=== PATIENT | female | born 1980 | race African-American/Black ===

== ENCOUNTER 2020-03-27 09:36 | Outpatient (REF) | payer MEDICARE, MEDICAID, SELFPAY ==
[2020-03-28 09:38] LABS: BV Int Neg Control Negative (Negative); BV Int Pos Control Positive (Positive)
[2020-03-28 12:57] LABS: C. trachomatis RNA TMA NOT DETECTED (NOT DETECTED); N. gonorrhoeae RNA TMA NOT DETECTED (NOT DETECTED)
== END 2020-03-27 09:37 | disposition home or self-care (01) ==
LOC: HO.LAB 09:36
PROVIDERS: Visit Provider Advanced Practice Midwife
DX: Z01.419 Encounter for gynecological examination (general) (routine) without abnormal findings (principal); I10 Essential (primary) hypertension; R10.2 Pelvic and perineal pain; Z20.2 Contact with and (suspected) exposure to infections with a predominantly sexual mode of transmission; Z12.31 Encounter for screening mammogram for malignant neoplasm of breast
CPT/HCPCS: 36415; 87480; 87491; 87510; 87591; 87660

== ENCOUNTER 2020-04-05 10:41 | Outpatient (REF) | payer MEDICARE, MEDICAID, SELFPAY ==
--- NOTE | 2020-04-05 10:48 | US_ITS ---
EXAMINATION: ULTRASOUND PELVIS CLINICAL INFORMATION: Pelvic and perineal pain. COMPARISON: None TECHNIQUE: Transabdominal and transvaginal ultrasound of the pelvis is performed. FINDINGS: On transabdominal ultrasound the uterus is anteverted measuring 9.5 cm in length, 4.3 cm in AP and 5.5 cm in transverse dimension. Endometrial thickness is 0.61 cm. There is a hypoechoic lesion in the right posterior uterus measuring 2.0 x 2.1 x 2.5 cm. There are multiple anechoic cervical nabothian cysts. The right ovary measures 4.72 x 3.05 x 3.06 mL and volume 27.36 mL. There is anechoic complex cyst measuring 3.5 x 3.0 x 3.4 cm. The left ovary measures 4.90 x 1.94 x 2.55 cm and volume 12.69 mL. There is an calcified wall cyst measuring 0.61 x 0.66 x 0.71 cm. There is free fluid in the cul-de-sac. US/US transvaginal IMPRESSION: Small posterior fundal uterine fibroid. The uterus is otherwise unremarkable. Complex cyst right ovary. A complex calcified left ovarian cyst. Nabothian cysts in cervix.
--- NOTE | 2020-04-05 10:48 | US_ITS ---
EXAMINATION: ULTRASOUND PELVIS CLINICAL INFORMATION: Pelvic and perineal pain. COMPARISON: None TECHNIQUE: Transabdominal and transvaginal ultrasound of the pelvis is performed. FINDINGS: On transabdominal ultrasound the uterus is anteverted measuring 9.5 cm in length, 4.3 cm in AP and 5.5 cm in transverse dimension. Endometrial thickness is 0.61 cm. There is a hypoechoic lesion in the right posterior uterus measuring 2.0 x 2.1 x 2.5 cm. There are multiple anechoic cervical nabothian cysts. The right ovary measures 4.72 x 3.05 x 3.06 mL and volume 27.36 mL. There is anechoic complex cyst measuring 3.5 x 3.0 x 3.4 cm. The left ovary measures 4.90 x 1.94 x 2.55 cm and volume 12.69 mL. There is an calcified wall cyst measuring 0.61 x 0.66 x 0.71 cm. There is free fluid in the cul-de-sac. US/US pelvic complete IMPRESSION: Small posterior fundal uterine fibroid. The uterus is otherwise unremarkable. Complex cyst right ovary. A complex calcified left ovarian cyst. Nabothian cysts in cervix.
[2020-04-05 13:12] LABS: Syphilis Screen Nonreactive (Nonreactive)
[2020-04-06 04:50] LABS: HBc Num1 0.05 S/CO (0.00-0.79); Hepatitis B Core Antibody Nonreactive (Nonreactive); ~HepC Num1 0.09 S/CO (0.00-0.79); ~Hepatitis C Antibody Nonreactive (Nonreactive)
[2020-04-06 04:51] LABS: HIV AB/AG Nonreactive (Nonreactive); HIV Num 1 0.07 S/CO (0.00-0.99)
[2020-04-06 18:52] LABS: C. trachomatis RNA TMA NOT DETECTED (NOT DETECTED); N. gonorrhoeae RNA TMA NOT DETECTED (NOT DETECTED)
== END 2020-04-05 10:42 | disposition home or self-care (01) ==
LOC: HO.US 10:41
PROVIDERS: Visit Provider Advanced Practice Midwife
DX: R10.2 Pelvic and perineal pain (principal); Z20.2 Contact with and (suspected) exposure to infections with a predominantly sexual mode of transmission
CPT/HCPCS: 36415; 76830; 76856; 86704; 86780; 86803; 87389; 87491; 87591

== ENCOUNTER → 2020-04-17 12:06 | Outpatient (BNVA) | payer MEDICARE, MEDICAID, SELFPAY | PROVIDERS: Visit Provider Advanced Practice Midwife | DX: R10.2 Pelvic and perineal pain (principal); K59.00 Constipation, unspecified; N83.299 Other ovarian cyst, unspecified side; Z71.2 Person consulting for explanation of examination or test findings | CPT/HCPCS: Q3014 ==

== ENCOUNTER → 2020-05-01 09:05 | Outpatient (BNVA) | payer MEDICARE, MEDICAID, SELFPAY | PROVIDERS: Visit Provider Obstetrics & Gynecology | DX: N93.9 Abnormal uterine and vaginal bleeding, unspecified (principal); R35.0 Frequency of micturition; R10.2 Pelvic and perineal pain | CPT/HCPCS: 81003; 99212 ==

== ENCOUNTER 2020-05-30 10:49 | Outpatient (REF) | payer MEDICARE, MEDICAID, SELFPAY ==
--- NOTE | ~2020-05-30 | US_ITS ---
EXAMINATION: ULTRASOUND PELVIS CLINICAL INFORMATION: Pelvic pain. COMPARISON: Ultrasound pelvis 04/05/2020. TECHNIQUE: Transabdominal and transvaginal ultrasound of the pelvis is performed. FINDINGS: The uterus is anteverted and anteflexed measuring 8.4 cm in length, 4.2 cm in AP and 5.5 cm in transverse dimension. There are 2 hypoechoic lesions. Lesion in the posterior upper body of uterus measures 2.1 x 2.1 x 2.2 cm. Previously it measured 2.0 x 2.1 x 2.5 cm. Second lesion along the left midbody of the uterus measures 1.3 x 0.8 x 1.5 cm. It is new. There are small anechoic nabothian cysts seen in the cervix. Endometrial thickness is 0.7 cm. The right ovary measures 3.5 x 1.7 x 2.3 cm and volume 7.2 mL. There is a complex cyst measuring 2.8 x 1.6 x 2.0 cm. Previously it measured 3.5 x 3.0 x 3.4 cm. The left ovary measures 2.9 x 2.1 x 2.3 cm and volume 7.3 mL. There is an anechoic cyst with calcified abbott measuring 0.9 x 0.7 x 0.7 cm. Previously it measured 0.6 x 0.7 x 0.7 cm. US/US pelvic complete IMPRESSION: At least 2 uterine fibroids. The larger fibroid is unchanged to previous study. Complex bilateral ovarian cysts, stable. There is no free fluid in cul-de-sac. There are several nabothian cysts in the cervix.
--- NOTE | ~2020-05-30 | US_ITS ---
EXAMINATION: ULTRASOUND PELVIS CLINICAL INFORMATION: Pelvic pain. COMPARISON: Ultrasound pelvis 04/05/2020. TECHNIQUE: Transabdominal and transvaginal ultrasound of the pelvis is performed. FINDINGS: The uterus is anteverted and anteflexed measuring 8.4 cm in length, 4.2 cm in AP and 5.5 cm in transverse dimension. There are 2 hypoechoic lesions. Lesion in the posterior upper body of uterus measures 2.1 x 2.1 x 2.2 cm. Previously it measured 2.0 x 2.1 x 2.5 cm. Second lesion along the left midbody of the uterus measures 1.3 x 0.8 x 1.5 cm. It is new. There are small anechoic nabothian cysts seen in the cervix. Endometrial thickness is 0.7 cm. The right ovary measures 3.5 x 1.7 x 2.3 cm and volume 7.2 mL. There is a complex cyst measuring 2.8 x 1.6 x 2.0 cm. Previously it measured 3.5 x 3.0 x 3.4 cm. The left ovary measures 2.9 x 2.1 x 2.3 cm and volume 7.3 mL. There is an anechoic cyst with calcified abbott measuring 0.9 x 0.7 x 0.7 cm. Previously it measured 0.6 x 0.7 x 0.7 cm. US/US transvaginal IMPRESSION: At least 2 uterine fibroids. The larger fibroid is unchanged to previous study. Complex bilateral ovarian cysts, stable. There is no free fluid in cul-de-sac. There are several nabothian cysts in the cervix.
== END 2020-05-30 10:50 | disposition home or self-care (01) ==
LOC: HO.US 10:49
PROVIDERS: Visit Provider Advanced Practice Midwife
DX: R10.2 Pelvic and perineal pain (principal)
CPT/HCPCS: 76830; 76856

== ENCOUNTER → 2020-06-01 11:26 | Outpatient (BNVA) | payer MEDICARE, MEDICAID, SELFPAY | PROVIDERS: Visit Provider Advanced Practice Midwife | DX: Z13.89 Encounter for screening for other disorder (principal) | CPT/HCPCS: Q3014 ==

== ENCOUNTER 2020-06-02 10:07 | Outpatient (REF) | payer MEDICARE, MEDICAID, SELFPAY ==
[2020-06-03 13:16] LABS: CT PCR NOT DETECTED (Not Detect.); NG PCR NOT DETECTED (Not Detect.)
[2020-06-05 22:26] LABS: CA-125 11 U/mL (<35)
== END 2020-06-02 10:08 | disposition home or self-care (01) ==
LOC: HO.LAB 10:07
PROVIDERS: Visit Provider Advanced Practice Midwife
DX: R10.2 Pelvic and perineal pain (principal); N83.299 Other ovarian cyst, unspecified side; Z11.3 Encounter for screening for infections with a predominantly sexual mode of transmission; Z11.8 Encounter for screening for other infectious and parasitic diseases
CPT/HCPCS: 86304; 87491; 87591

== ENCOUNTER 2020-06-07 14:09 | Outpatient (REF) | payer MEDICARE, MEDICAID, SELFPAY | END 2020-06-07 14:10 | disposition home or self-care (01) | LOC: HO.LAB 14:09 | PROVIDERS: Visit Provider Obstetrics & Gynecology | DX: N93.9 Abnormal uterine and vaginal bleeding, unspecified (principal) | CPT/HCPCS: 58100; 88305 ==

== ENCOUNTER → 2020-06-16 10:51 | Outpatient (BNVA) | payer MEDICARE, MEDICAID, SELFPAY | PROVIDERS: Visit Provider Obstetrics & Gynecology | DX: Z13.89 Encounter for screening for other disorder (principal) | CPT/HCPCS: Q3014 ==

== ENCOUNTER 2021-02-08 08:15 | Outpatient (REF) | payer MEDICARE, MEDICAID, SELFPAY ==
--- NOTE | ~2021-02-08 | MM_ITS ---
EXAMINATION: MM SCREENING DIGITAL BREAST TOMOSYNTHESIS, BILATERAL CLINICAL INFORMATION: Screening. Asymptomatic. Age 40. No prior breast imaging. Family history breast cancer. The lifetime risk of breast cancer based on the Tyrer-Cuzick Model is 7%. COMPARISON: None (current study represents initial baseline exam). TECHNIQUE: Digital breast tomosynthesis is performed in both the craniocaudal and mediolateral oblique views along with computer-aided detection (CAD). Synthesized 2D images are generated from the tomosynthesis. Additional left CC view is provided. FINDINGS: There are scattered areas of fibroglandular density (ACR BI-RADS breast composition Category b). There are no significant masses, abnormal calcifications, or other abnormalities. Skin contours are smooth. MM/MM tomosynthesis screening BI IMPRESSION: No mammographic evidence of malignancy. ASSESSMENT: BI-RADS 1: Negative RECOMMENDATION: Routine annual mammography screening. This patient's information was entered into a reminder system with a target due date for their next mammogram.
== END 2021-02-08 08:16 | disposition home or self-care (01) ==
LOC: HO.MAMMO 08:15
PROVIDERS: Visit Provider Advanced Practice Midwife
DX: Z12.31 Encounter for screening mammogram for malignant neoplasm of breast (principal)
CPT/HCPCS: 77063; 77067

== ENCOUNTER 2021-03-13 02:04 | Emergency (ER) | payer MEDICARE, MEDICAID, SELFPAY ==
--- NOTE | ~2021-03-13 | XR_ITS ---
EXAMINATION: XR HAND, RIGHT CLINICAL INFORMATION: Possible glass in hand COMPARISON: None TECHNIQUE: Single PA view of the right hand. FINDINGS: No fracture or dislocation. Appropriate alignment. Joint spaces are maintained. Corticated ossific density at the tip of the ulnar styloid may be from prior trauma. There is no radiopaque foreign body identified. XR/XR hand RT 2V IMPRESSION: No radiopaque foreign body identified.
[2021-03-13 02:39] VITALS: BP 130/96; PULSE 120; RESP 20; TEMP 36.7; O2SAT 99; BMI 32.1
[2021-03-13 04:00] VITALS: BP 130/96; PULSE 120; RESP 20; TEMP 36.7; O2SAT 99
[2021-03-13] MEDS: Lidocaine HCl 2 % MPF 5 ML VIAL INFILTRATI (05:10)
--- NOTE | 2021-03-13 05:40 | ED.WOUNDLAC ---
HPI - Wound/Laceration General Chief Complaint: Wound/Laceration Stated Complaint: R hand laceration Time Seen by Provider: 03/13/21 04:56 Source: patient Mode of arrival: ambulatory Limitations: no limitations History of Present Illness HPI narrative: Patient got a superficial laceration on the dorsum of the right hand from broken glass from hot tea no other injuries Related Data Previous Rx's Medication Instructions Recorded metronidazole 500 mg tablet 500 mg PO BID 7 Days #14 tab 03/29/20 (Flagyl) norethindrone (contraceptive) 0.35 0.35 mg PO DAILY #84 tab 05/01/20 mg tablet Allergies Allergy/AdvReac Type Severity Reaction Status Date / Time No Known Allergies Allergy Verified 06/16/20 10:53 [No Known Allergies*] Review of Systems Review of Systems: Yes all other systems are reviewed and are negative PMFSH Past Medical History Attestation statement: The following information was validated with the patient. Medical History Fibroids Hypertension Obesity (BMI 35.0-39.9 without comorbidity) Family History Family History Maternal Grandmother Cancer Social History Social History Alcohol intake: unknown Patient Tobacco Use Status: Tobacco use Unknown Use of substances other than those prescribed or required for medical reasons: Unknown Substance Use Type: Marijuana Advance Directives: No Advance Directives Information Provided: No Patient : No Sexual orientation: Straight/Heterosexual Physical Exam Vital Signs: Vital Signs: Last Vital Signs Temp 98.1 F 03/13/21 04:00 Pulse 120 H 03/13/21 04:00 Resp 20 03/13/21 04:00 BP 130/96 H 03/13/21 04:00 Pulse Ox 99 03/13/21 04:00 BMI result Body Mass Index 32.1 Extrem: Hand/finger images: 1. Superficial 2 cm laceration with active bleeding and hematoma Tendons are intact neurovascular intact MDM - Wound/Laceration MDM Narrative Medical decision making narrative: X-ray negative for foreign body , laceration sutured with sutures and Shad wrap was applied Procedures Laceration Laceration 1: Site: upper extremity Side (If applicable): right Size (cm): 2 Description: stellate Depth: simple, single layer Local Anesthetic: lidocaine 2% Amount of anesthesia used (mL): 1 Pre-repair: wound explored and deep structures intact Skin layer closed with: nylon Size (cm): 5-0 Number of sutures: 2 Technique: simple, interrupted Discharge Plan Discharge Clinical Impression: Laceration Patient Disposition: Home, Self-Care Instructions: Laceration (ED) Additional Instructions: Local care as advised Suture removal in 7-10 days Prescriptions: No Action metronidazole [Flagyl] 500 mg tablet 500 mg PO BID 7 Days Qty: 14 RF: 0 norethindrone (contraceptive) 0.35 mg tablet 0.35 mg PO DAILY Qty: 84 RF: 4 Interventions: ED Discharge Assessment Last Done: 03/13/21 05:55 Discharge Date/Time: 03/13/21 05:59
== END 2021-03-13 05:59 | disposition home or self-care (01) ==
PROVIDERS: Emergency Provider Internal Medicine
DX: S61.411A Laceration without foreign body of right hand, initial encounter (principal); I10 Essential (primary) hypertension; W25.XXXA Contact with sharp glass, initial encounter; Y93.9 Activity, unspecified; Y92.9 Unspecified place or not applicable; Y99.9 Unspecified external cause status
CPT/HCPCS: 12001; 73120; 99284

== ENCOUNTER 2021-04-30 16:06 | Emergency (ER) | payer OTHER, SELFPAY ==
[2021-04-30] VITALS (8 sets, daily range): BP systolic 170–208; BP diastolic 100–121; PULSE 68–107; RESP 14–22; TEMP 36.3–37.1; O2SAT 98–99; BMI 32.1
--- NOTE | 2021-04-30 16:28 | ECG_ITS ---
Test Reason : abdominal pain Blood Pressure : / mmHG Vent. Rate : 102 BPM Atrial Rate : 102 BPM P-R Int : 150 ms QRS Dur : 076 ms QT Int : 358 ms P-R-T Axes : 066 182 032 degrees QTc Int : 466 ms Sinus tachycardia Right superior axis deviation Pulmonary disease pattern Abnormal ECG No previous ECGs available Referred By: Generic ED Physician Electronically Signed By:Surinder Silva
[2021-04-30 17:27] LABS: Imm Gran Abs Auto 0.02 X10*3/uL (0.00-0.03); Imm Gran Pct Auto 0.2 % (0.0-0.4); Mean Platelet Volume 11.9 fL (9.4-12.3); Red Cell Distribution Width 14.6 % (11.0-16.0); WBC ABN SCTR 1
[2021-04-30 17:36] LABS: Basophils Absolute Auto 0.1 X10*3/uL (0.0-0.2); Basophils Percent Auto 0.6 % (0-2); Eosinophils Absolute Auto 0.2 X10*3/uL (0.0-0.4); Eosinophils Percent Auto 1.7 % (0-4); Hematocrit 40.4 % (37.0-47.0); Hemoglobin 12.8 g/dl (12.0-16.0); Lymphocytes Absolute Auto 3.9 X10*3/uL (1.2-4.9); Lymphocytes Percent Auto 41.9 % (20-40); Mean Corpuscular HGB Conc 31.7 g/dl (31.0-35.0); Mean Corpuscular Hemoglobin 27.7 pg (27.0-33.0); Mean Corpuscular Volume 87.4 fL (80.0-98.0); Monocytes Absolute Auto 1.1 X10*3/uL (0.1-1.2); Monocytes Percent Auto 11.2 % (2-11); Neutrophils Absolute Auto 4.2 x10*3/uL (2.0-8.3); Neutrophils Percent Auto 44.4 % (45-73); Platelet Count 297 X10*3/uL (160-400); Red Blood Count 4.62 X10*6/uL (4.20-5.50)
[2021-04-30 17:40] LABS: WBC ABN SCTR FOR CBC 1
[2021-04-30 17:41] LABS: MANUAL DIFF FLAG NO; White Blood Count 9.4 X10*3/uL (4.8-10.8)
[2021-04-30 17:53] LABS: Anion Gap 13 (12-20); Blood Urea Nitrogen 12 mg/dL (9-16); Calcium 9.7 mg/dL (8.4-10.2); Carbon Dioxide 26 mmol/L (22-29); Chloride 107 mmol/L (96-108); Creatinine Clr Calc Pharmacy 65.6; Estimated Glomerular Filt Rate 57; Glucose Random 90 mg/dL (60-115); Potassium 4.9 mmol/L (3.3-5.1); Sodium 141 mmol/L (135-145)
[2021-04-30 17:56] LABS: Troponin-I High Sensitivity 7.9 ng/L (<3.5-17.0)
--- NOTE | 2021-04-30 20:30 | ED_ITS ---
HPI - Abdominal Pain General Chief Complaint: Abdominal Pain Stated Complaint: severe stomach pains Time Seen by Provider: 04/30/21 20:30 Source: patient Mode of arrival: ambulatory Limitations: no limitations History of Present Illness HPI narrative: Patient history of fibroids and hypertension not taking her medications for blood pressure comes here for chronic abdominal pain for more than 1 month with slight nausea and vomiting blood pressure on arrival was 188/101 patient has not taken her blood pressure medication for more than 6 months has could not reach her PCP no diarrhea no fever no chills Related Data Previous Rx's Medication Instructions Recorded lisinopril 20 1 tab PO DAILY #30 tab 05/01/21 mg-hydrochlorothiazide 25 mg tablet pantoprazole 40 mg tablet,delayed 40 mg PO DAILY #30 tab 05/01/21 release (Protonix) sucralfate 1 gram tablet 1 g PO TID #90 tab 05/01/21 Allergies Allergy/AdvReac Type Severity Reaction Status Date / Time No Known Allergies Allergy Verified 04/30/21 16:19 [No Known Allergies*] Review of Systems Review of Systems Yes all other systems are reviewed and are negative Physical Exam Vital Signs: Vital Signs: Last Vital Signs Temp 98.5 F 04/30/21 21:42 Pulse 74 05/01/21 01:11 Resp 18 05/01/21 01:11 BP 153/87 H 05/01/21 01:11 Pulse Ox 99 05/01/21 01:11 BMI result Body Mass Index 32.1 Appearance: Alert. Oriented X3. No acute distress. Eyes: PERRLA, No Nystagmus ENT: Pharynx normal. Oral Mucosa moist Neck: Normal inspection. Neck supple. CVS: Normal heart rate and rhythm. Pulses normal. Respiratory: No respiratory distress. Equal air entry bilateral, no wheezing/rales/rhonchi Abdomen: Soft , diffuse abdominal tenderness in epigastric area and lower quadrants no rebound tenderness or guarding Bowel sounds are present, no mass p alpable, no CVA tenderness Skin: Skin warm and dry. Normal skin color. Normal skin turgor. Extremities: No lower extremity edema. No calf tenderness Neuro: Oriented X 3. No motor deficit. No sensory deficit.No cerebellar signs , cranial nerves II-XII intact MDM - Abdominal Pain MDM Narrative Medical decision making narrative: Is stable labs with chronic abdominal pain noticed to have high blood pressure requiring 2 doses. Will prescribe patient lisinopril and hydrochlorothiazide Lab Data Attestation: I reviewed the patient's lab results. Result diagrams: 04/30/21 17:20 04/30/21 17:20 Labs: Lab Results 04/30/21 04/30/21 04/30/21 Range/Units 17:20 17:20 17:20 WBC 9.4 (4.8-10.8) X10*3/uL RBC 4.62 (4.20-5.50) X10*6/uL Hgb 12.8 (12.0-16.0) g/dl Hct 40.4 (37.0-47.0) % MCV 87.4 (80.0-98.0) fL MCH 27.7 (27.0-33.0) pg MCHC 31.7 (31.0-35.0) g/dl RDW 14.6 (11.0-16.0) % Plt Count 297 (160-400) X10*3/uL MPV 11.9 (9.4-12.3) fL Immature Gran % (Auto) 0.2 (0.0-0.4) % Neut % (Auto) 44.4 L (45-73) % Lymph % (Auto) 41.9 H (20-40) % [place]ett % (Auto) 11.2 H (2-11) % Eos % (Auto) 1.7 (0-4) % Baso % (Auto) 0.6 (0-2) % Lymph # (Auto) 3.9 (1.2-4.9) X10*3/uL [place] # (Auto) 1.1 (0.1-1.2) X10*3/uL Eos # (Auto) 0.2 (0.0-0.4) X10*3/uL Baso # (Auto) 0.1 (0.0-0.2) X10*3/uL Abs Immat Gran (auto) 0.02 (0.00-0.03) X10*3/uL Absolute Neuts (auto) 4.2 (2.0-8.3) x10*3/uL Absolute Nucleated RBC 0.000 (0.0-0.012) X10*3/uL Nucleated RBC % (auto) 0.0 (0.0-0.2) /100WBC Sodium 141 (135-145) mmol/L Potassium 4.9 (3.3-5.1) mmol/L Chloride 107 (96-108) mmol/L Carbon Dioxide 26 (22-29) mmol/L Anion Gap 13 (12-20) BUN 12 (9-16) mg/dL Creatinine 1.06 (0.5-1.4) mg/dL Estim Creat Clear Calc 65.6 Estimated GFR 57 Random Glucose 90 (60-115) mg/dL Calcium 9.7 (8.4-10.2) mg/dL Total Bilirubin 0.4 (0.0-1.0) mg/dL Direct Bilirubin < 0.2 (0.0-0.5) mg/dL AST 15 (5-31) U/L ALT 14 (0-31) U/L Alkaline Phosphatase 65 (39-117) U/L Troponin I High Sens 7.9 (<3.5-17.0) ng/L Total Protein 7.8 (6.5-8.0) g/dL Albumin 4.4 (3.5-5.0) g/dL Lipase 24 (8-78) U/L Urine Color Urine Appearance Urine pH (5.0-8.0) Ur Specific [place] (1.005-1.025) Urine Protein (NEG-TRACE) MG/DL Urine Glucose (UA) (NEG) MG/DL Urine Ketones (NEG) MG/DL Urine Blood (NEG) Urine Nitrite (NEG) Ur Leukocyte Esterase (NEG) 04/30/21 Range/Units 22:06 WBC (4.8-10.8) X10*3/uL RBC (4.20-5.50) X10*6/uL Hgb (12.0-16.0) g/dl Hct (37.0-47.0) % MCV (80.0-98.0) fL MCH (27.0-33.0) pg MCHC (31.0-35.0) g/dl RDW (11.0-16.0) % Plt Count (160-400) X10*3/uL MPV (9.4-12.3) fL Immature Gran % (Auto) (0.0-0.4) % Neut % (Auto) (45-73) % Lymph % (Auto) (20-40) % [place] % (Auto) (2-11) % Eos % (Auto) (0-4) % Baso % (Auto) (0-2) % Lymph # (Auto) (1.2-4.9) X10*3/uL [place] # (Auto) (0.1-1.2) X10*3/uL Eos # (Auto) (0.0-0.4) X10*3/uL Baso # (Auto) (0.0-0.2) X10*3/uL Abs Immat Gran (auto) (0.00-0.03) X10*3/uL Absolute Neuts (auto) (2.0-8.3) x10*3/uL Absolute Nucleated RBC (0.0-0.012) X10*3/uL Nucleated RBC % (auto) (0.0-0.2) /100WBC Sodium (135-145) mmol/L Potassium (3.3-5.1) mmol/L Chloride (96-108) mmol/L Carbon Dioxide (22-29) mmol/L Anion Gap (12-20) BUN (9-16) mg/dL Creatinine (0.5-1.4) mg/dL Estim Creat Clear Calc Estimated GFR Random Glucose (60-115) mg/dL Calcium (8.4-10.2) mg/dL Total Bilirubin (0.0-1.0) mg/dL Direct Bilirubin (0.0-0.5) mg/dL AST (5-31) U/L ALT (0-31) U/L Alkaline Phosphatase (39-117) U/L Troponin I High Sens (<3.5-17.0) ng/L Total Protein (6.5-8.0) g/dL Albumin (3.5-5.0) g/dL Lipase (8-78) U/L Urine Color YELLOW Urine Appearance CLEAR Urine pH 6.0 (5.0-8.0) Ur Specific [place] 1.020 (1.005-1.025) Urine Protein NEG (NEG-TRACE) MG/DL Urine Glucose (UA) NEG (NEG) MG/DL Urine Ketones NEG (NEG) MG/DL Urine Blood NEG (NEG) Urine Nitrite NEG (NEG) Ur Leukocyte Esterase NEG (NEG) Discharge Plan Discharge Clinical Impression: Hypertension, Abdominal pain Patient Disposition: Home, Self-Care Instructions: Abdominal Pain (ED), Hypertension (ED) Additional Instructions: Take blood pressure medication daily as prescribed Check blood pressure should be less than 140/90 Follow with PCP Take medication for GERD as prescribed Prescriptions: New lisinopril-hydrochlorothiazide 20-25 mg tablet 1 tab PO DAILY Qty: 30 3RF pantoprazole [Protonix] 40 mg tablet,delayed release (DR/EC) 40 mg PO DAILY Qty: 30 0RF sucralfate 1 gram tablet 1 g PO TID Qty: 90 0RF PMFSH Past Medical History Medical History Fibroids Hypertension Obesity (BMI 35.0-39.9 without comorbidity) Family History Family History Maternal Grandmother Cancer Social History Social History Alcohol intake: unknown Patient Tobacco Use Status: Tobacco use Unknown Substance Use Type: Marijuana Advance Directives: No Advance Directives Information Provided: Yes Patient : No Sexual orientation: Straight/Heterosexual
[2021-04-30 21:09] LABS: Alanine Aminotransferase 14 U/L (0-31); Albumin Level 4.4 g/dL (3.5-5.0); Alkaline Phosphatase 65 U/L (39-117); Aspartate Amino Transferase 15 U/L (5-31); Bilirubin Direct < 0.2 mg/dL (0.0-0.5); Bilirubin Total 0.4 mg/dL (0.0-1.0); Lipase 24 U/L (8-78); Total Protein 7.8 g/dL (6.5-8.0)
[2021-04-30] MEDS: Morphine Sulfate 4 MG/ML CARTRIDGE IVPUSH (21:59)
[2021-04-30] MEDS: Famotidine/PF 20 MG/2 ML VIAL IVPUSH (21:59)
[2021-04-30] MEDS: ondansetron HCL 4 MG/2 ML VIAL IVPUSH (21:59)
[2021-04-30] MEDS: Labetalol HCL 100 MG/20 ML VIAL 20 MG IVPUSH ×2 (22:00→23:42)
[2021-04-30 22:19] LABS: Appearance Urine CLEAR; Color Urine YELLOW; Glucose Urine UA NEG (NEG); Leukocyte Esterase Urine NEG (NEG); Nitrite Urine NEG (NEG); Urine Blood NEG (NEG); Urine Ketones NEG (NEG); Urine Protein NEG (NEG-TRACE)
[2021-05-01 00:15] VITALS: BP 175/105; PULSE 70; RESP 16; O2SAT 100
[2021-05-01] MEDS: lisinopriL 20 MG TABLET PO (00:16)
[2021-05-01 01:11] VITALS: BP 153/87; PULSE 74; RESP 18; O2SAT 99
== END 2021-05-01 01:39 | disposition home or self-care (01) ==
PROVIDERS: Emergency Provider Internal Medicine
DX: R10.9 Unspecified abdominal pain (principal); I10 Essential (primary) hypertension
CPT/HCPCS: 36415; 80048; 80076; 81003; 83690; 84484; 85025; 93005; 96374; 96375; 96376; 99284; J2270; J2405

== ENCOUNTER 2021-08-17 08:15 | Outpatient (REF) | payer MEDICARE, MEDICAID, SELFPAY ==
[2021-08-17 09:44] LABS: Alanine Aminotransferase 18 U/L (0-31); Albumin Level 4.6 g/dL (3.5-5.0); Alkaline Phosphatase 63 U/L (39-117); Anion Gap 15 (12-20); Aspartate Amino Transferase 14 U/L (5-31); Bilirubin Total 0.6 mg/dL (0.0-1.0); Blood Urea Nitrogen 16 mg/dL (9-16); Carbon Dioxide 28 mmol/L (22-29); Chloride 98 mmol/L (96-108); Cholesterol 241 mg/dL; Estimated Glomerular Filt Rate 45; Glucose Fasting 91 mg/dL (60-99); HDL Cholesterol 63 mg/dL; LDL Cholesterol Calculated 149 mg/dl; Potassium 4.8 mmol/L (3.3-5.1); Sodium 136 mmol/L (135-145); Total Protein 8.3 g/dL (6.5-8.0); Triglycerides 146 mg/dL
[2021-08-17 10:06] LABS: TSH reflex Free T4 0.63 uIU/mL (0.32-4.0); Vitamin D 25-OH Total 9.2 ng/mL (>30)
[2021-08-17 10:19] LABS: Folate 13.4 ng/mL (> or = 4.0); Vitamin B12 326 pg/mL (200-900)
== END 2021-08-17 08:16 | disposition home or self-care (01) ==
LOC: HO.LAB 08:15
PROVIDERS: PCP Nurse Practitioner Family; Visit Provider Nurse Practitioner Family
DX: Z13.29 Encounter for screening for other suspected endocrine disorder (principal); Z13.220 Encounter for screening for lipoid disorders; M54.50 Low back pain, unspecified; Z76.89 Persons encountering health services in other specified circumstances
CPT/HCPCS: 36415; 80053; 80061; 82306; 82607; 82746; 84443

== ENCOUNTER 2022-02-15 08:24 | Outpatient (REF) | payer MEDICARE, MEDICAID, SELFPAY ==
--- NOTE | ~2022-02-15 | MM_ITS ---
EXAMINATION: MM SCREENING DIGITAL BREAST TOMOSYNTHESIS, BILATERAL CLINICAL INFORMATION: Screening. Asymptomatic. The lifetime risk of breast cancer based on the Tyrer-Cuzick Model is 6%. COMPARISON: Mammography: 02/08/2021 (baseline) TECHNIQUE: Digital breast tomosynthesis is performed in both the craniocaudal and mediolateral oblique views along with computer-aided detection (CAD). Synthesized 2D images are generated from the tomosynthesis. FINDINGS: There are scattered areas of fibroglandular density (ACR BI-RADS breast composition Category b). There are no significant masses, abnormal calcifications, or other abnormalities. Parenchymal pattern is similar to prior baseline exam. There is no developing density or architectural abnormality. The axilla and skin contours are unremarkable. No significant changes. MM/MM tomosynthesis screening BI IMPRESSION: No mammographic evidence of malignancy. ASSESSMENT: BI-RADS 1: Negative RECOMMENDATION: Routine annual mammography screening. This patient's information was entered into a reminder system with a target due date for their next mammogram.
== END 2022-02-15 08:25 | disposition home or self-care (01) ==
LOC: HO.MAMMO 08:24
PROVIDERS: PCP Nurse Practitioner Family; Visit Provider Internal Medicine
DX: Z12.31 Encounter for screening mammogram for malignant neoplasm of breast (principal)
CPT/HCPCS: 77063; 77067

== ENCOUNTER 2022-11-21 11:36 | Outpatient (AMB) | payer MEDICARE, MEDICAID, SELFPAY ==
[2022-11-21 11:37] VITALS: BP 134/88; PULSE 88; O2SAT 97; BMI 36.5
--- NOTE | 2022-11-21 11:37 | A.OFFPC_ITS ---
Vital Signs 11/21/22 11:37 Height 5 ft 1 in Weight 193 lb BMI 36.5 BP 134/88 Blood Pressure Location Lt brachial Position Sitting Pulse 88 Pulse Source Pulse Oximeter Temp Source Skin Pulse Oximetry (%) 97 Oxygen Delivery Method Room Air Intake Visit Reasons: bp follow up Intake Note: Patient is here to follow up on BP Letter Carrier Required: No Allergies Lisinopril-hydrochlorothiazide Allergy (Mild, Uncoded 11/21/22 11:50) Itching Medication List - Last Reconciled 11/21/22 by ROYER Tavarez albuterol sulfate 90 mcg/actuation 2 puffs inhalation Q6H PRN amlodipine 5 mg PO DAILY blood pressure monitor As directed hydroxyzine HCl 25 mg PO TID PRN Tobacco use date assessed: 11/21/22 HPI bp follow up HPI Details Patient is a 42-year-old female who presents today to follow-up on hypertension. Medical history significant for obesity, hypertension, GERD, lower back pain, hyperlipidemia, CKD stage 3 and anxiety among others. Patient reports that she is compliant with medications and denies side effects. She needs refill on hydroxyzine for anxiety and interested in counseling referral. In addition, patient reports incontinence when she is coughing or laughing for the past 7 months, denies this in the past, denies any other urinary symptoms. Denies shortness of breath or chest pain. COUNTS INCLUDE 234 BEDS AT THE [facility] Medical History (Updated 11/21/22 @ 12:53 by ROYER Tavarez) Bilateral impacted cerumen Encounter to establish care Fibroids Hypertension Obesity (BMI 35.0-39.9 without comorbidity) Surgical History No pertinent past surgical history Family History Maternal Grandmother Cancer Mother High blood pressure Father No problems noted. Other Mental health problem Substance abuse Social History Housing: Condominium Alcohol intake: current Alcohol intake frequency: holidays/special occasions only Patient Tobacco Use Status: Former Tobacco user e-Cigarette/Vaping Use: Never Used Second Hand Smoke Exposure: Yes Substance Use Type: Marijuana service: No Current occupational status: disabled Sexual orientation: Straight/Heterosexual Cognitive needs: No Hearing needs: No Vision needs: No Female Reproductive History Menstrual Age of Menarche: 11 Questionnaire PHQ-9 Over the last 2 weeks, how often have you been bothered by any of the following problems? 1. Little interest or pleasure in doing things: not at all 2. Feeling down, depressed, or hopeless: several days 3. Trouble falling or staying asleep, or sleeping too much: more than half the days (trouble sleeping ) 4. Feeling tired or having little energy: not at all 5. Poor appetite or overeating: not at all 6. Feeling bad about yourself - or that you are a failure or have let yourself or your family down: not at all 7. Trouble concentrating on things, such as reading the newspaper or watching television: not at all 8. Moving or speaking so slowly that other people could have noticed. Or the opposite - being so fidgety or restless that you have been moving around a lot more than usual: not at all 9. Thoughts that you would be better off or of hurting yourself in some way: not at all Total score: 3 Depression Screening Interpretation: Negative 70065 - PHQ-9 Billing: Yes Source: Developed by Drs. Willy Young, Ruth Churchill, Donald Barraza and colleagues, with an educational renato from [employer]. Thrive Questionnaire Date Thrive assessed: 08/15/21 AUDIT C Alcohol Use Questionnaire (AUDIT-C) 1. How often do you have a drink containing alcohol?: Monthly or less 2. How many drinks containing alcohol do you have on a typical day when you are drinking?: 1 or 2 3. How often do you have six or more drinks on one occasion?: Never Total Score: 1 Score Reviewed/Action Taken: No ADAIR-7 AMB Questionnaire ADAIR-7 Date ADAIR - 7 assessed: 11/21/22 Feeling nervous, anxious, or on edge: 3 = Nearly every day Not being able to stop or control worryin = Several days Worrying too much about different things: 1 = Several days Trouble relaxin = Several days Being so restless that it is hard to sit still: 1 = Several days Becoming easily annoyed or irritable: 1 = Several days Feeling afraid as if something awful might happen: 0 = Not at all Total ADAIR-7 score (0-4 normal; 5-9 mild; 10-14 moderate; 15-21 severe): 8 Source: Developed by Drs. Willy Young, Ruth Churchill, Donald Barraza and colleagues, with an educational renato from [employer]. ADAIR-7 Assessment Billing ADAIR-7 Assessment Tool: ADAIR-7 Assessment 54598 Review of Systems Const Denies body aches, Denies chills, Denies fever(s) and Denies headache(s) Eyes Denies change in vision ENT Denies dizziness, Denies otalgia, Denies headache(s), Denies nasal discharge, Denies sinus pain and Denies sore throat Card Denies chest pain, Denies edema, Denies lightheadedness and Denies dyspnea Resp Denies cough, Denies dyspnea and Denies wheezing GI Denies abdominal pain Denies dysuria and Reports urinary incontinence Musc Denies myalgias Skin/Breast Denies rash Neuro Denies dizziness and Denies headache(s) Aller/Immun Denies wheezing Physical exam (Primary Care) Vital Signs: Last Vital Signs Pulse 88 11/21/22 11:37 BP 134/88 11/21/22 11:37 Pulse Ox 97 11/21/22 11:37 Oxygen Delivery Method Room Air 11/21/22 11:37 BMI result Body Mass Index 36.5 Tobacco/Smoking Status: Tobacco use Status Tobacco use date assessed 11/21/22 11/21/22 11:39 Patient Tobacco Use Status Former Tobacco user 11/21/22 11:39 e-Cigarette/Vaping Use Never Used 11/21/22 11:39 PHQ-9: PHQ-9 Score PHQ-9: Total score 3 11/21/22 11:53 Depression Screening Interpretation: Negative Thrive Assessment: Date of Thrive Assessment Date Thrive assessed 08/15/21 11/21/22 11:39 Const General: cooperative and no acute distress Orientation/consciousness: patient oriented x3 HENMT Head: Yes normocephalic and Yes atraumatic Face and sinus: Yes sinuses nontender Mouth: oropharynx normal and moist mucous membranes Throat: Yes posterior oropharynx normal Eyes General: appearance normal, both eyes and all related structures Pupils: Equal, round and reactive pupils present Neck Neck: Yes normal visual inspection, Yes full ROM and Yes no lymphadenopathy Thyroid: Thyroid normal Resp Effort & Inspection: normal respiratory effort and able to speak in complete sentences Auscultation: clear to auscultation bilaterally, no crackles, no rales, no rhonchi and no wheezes Cardio Rate: regular rate Rhythm: regular rhythm Heart sounds: S1 normal heart sound present, S2 normal heart sound present and no murmurs GI Auscultation: normal bowel sounds Skin General skin exam: no rashes or lesions noted Neuro General: patient oriented x3 Cranial nerves: Yes Equal, round and reactive pupils present Gait exam (Neuro): Normal gait present Extrem General: Yes full ROM and No edema Assessment and Plan Assessment & Plan (1) Stress incontinence: Code(s): N39.3 - Stress incontinence (female) (male) Plan: Urinalysis ordered Urology referral for an evaluation and treatment (2) CKD (chronic kidney disease) stage 3, GFR 30-59 ml/min: Code(s): N18.30 - Chronic kidney disease, stage 3 unspecified Plan: Continue to monitor Avoid nephrotoxic medications (3) Generalized anxiety disorder: Code(s): F41.1 - Generalized anxiety disorder Plan: Continue hydroxyzine p.r.n. Counseling referral (4) Hyperlipidemia: Code(s): E78.5 - Hyperlipidemia, unspecified Plan: Low-cholesterol diet Will check lipid panel (5) Obesity (BMI 35.0-39.9 without comorbidity): Code(s): E66.9 - Obesity, unspecified Plan: Healthy food choices and exercise as tolerated Patient is not interested in weight management referral at this time (6) Hypertension: Code(s): I10 - Essential (primary) hypertension Plan: Goal BP equal or less than 140/90 Continue amlodipine Low-sodium diet and weight loss (7) GERD (gastroesophageal reflux disease): Code(s): K21.9 - Gastro-esophageal reflux disease without esophagitis Plan: Diet controlled Avoid GERD trigger foods Do not lay down 2-3 hours after evening meal Plan Follow-up in 6 months for PE Orders: Orders Comprehensive [place]. Panel Fast Today I10 - Essential (primary) hypertension Lipid Panel Today E78.5 - Hyperlipidemia, unspecified TSH reflex Free T4 Today I10 - Essential (primary) hypertension Vitamin D 25-OH Total Today I10 - Essential (primary) hypertension UA CC w/rflx Micro + Cult Today N39.3 - Stress incontinence (female) (male) Referrals Counseling Referral F41.1 - Generalized anxiety disorder Medications: Refilled hydroxyzine HCl 25 mg PO TID PRN 30 tabs 0RF anxiety amlodipine 5 mg PO DAILY 90 tabs 1RF Coding Level of Care Code Est Pt Level 4 (64614) Diagnoses Stress incontinence N39.3 CKD (chronic kidney disease) stage 3, GFR 30-59 ml/min N18.30 Generalized anxiety disorder F41.1 Hyperlipidemia E78.5 Obesity (BMI 35.0-39.9 without comorbidity) E66.9 Hypertension I10 GERD (gastroesophageal reflux disease) K21.9 Additional Codes ADAIR-7 Assessment Billing - ADAIR-7 Assessment Tool: ADAIR-7 Assessment 20223 ([id number])
== END 2022-11-21 12:06 | disposition home or self-care (01) ==
PROVIDERS: PCP Nurse Practitioner Family; Visit Provider Nurse Practitioner Family
DX: I12.9 Hypertensive chronic kidney disease with stage 1 through stage 4 chronic kidney disease, or unspecified chronic kidney disease (principal); N18.30 Chronic kidney disease, stage 3 unspecified; K21.9 Gastro-esophageal reflux disease without esophagitis; N39.3 Stress incontinence (female) (male); F41.1 Generalized anxiety disorder; E78.5 Hyperlipidemia, unspecified; E66.9 Obesity, unspecified
CPT/HCPCS: 99214

== ENCOUNTER 2023-03-21 08:41 | Emergency (ER) | payer MEDICARE, MEDICAID, SELFPAY ==
[2023-03-21 09:24] VITALS: BP 151/98; PULSE 87; RESP 16; TEMP 36.7; O2SAT 96; BMI 34.0
--- NOTE | 2023-03-21 11:08 | ED_ITS ---
HPI - General Adult General Chief complaint: General Medical Stated complaint: Throat Issues Time Seen by Provider: 03/21/23 10:55 Source: patient Mode of arrival: ambulatory Limitations: no limitations History of Present Illness HPI narrative: 42 old female with past medical history of generalized anxiety disorder, chronic kidney disease, hyperlipidemia, GERD, and hypertension presents to ED for recurrent throat issues described as sore throat for the past 10 years. Patient has been to multiple ear nose throat specialist. Patient also had endescopy to evaluate for acid reflux blurred, GERD, and esophageal motility issues and were negative. Patient states sore throat and fever for couple of days. Patient denies any drooling, change in voice, shortness of breath or chest pain. Related Data Previous Rx's Medication Instructions Recorded blood pressure monitor #1 ea 08/15/21 albuterol sulfate 90 mcg/actuation 2 puff inhalation Q6H PRN 01/11/22 aerosol inhaler shortness of breath or wheezing #6.7 grams amlodipine 5 mg tablet 5 mg PO DAILY #90 tabs 11/21/22 hydroxyzine HCl 25 mg tablet 25 mg PO TID PRN anxiety #30 tabs 11/21/22 amoxicillin 875 mg-potassium 1 tab PO Q12H 10 days #20 tabs 03/21/23 clavulanate 125 mg tablet naproxen 500 mg tablet 500 mg PO BID PRN pain 7 days #14 03/21/23 tabs Allergies Allergy/AdvReac Type Severity Reaction Status Date / Time Lisinopril-hydrochlorothiazide Allergy Mild Itching Uncoded 03/21/23 09:23 Review of Systems 2 Review of Systems: Sore throat, fever, or chills Yes all other systems are reviewed and are negative PMFSH Past Medical History Medical History (Updated 03/21/23 @ 12:51 by KATHY Guerrero) Bilateral impacted cerumen Encounter to establish care Fibroids Obesity (BMI 35.0-39.9 without comorbidity) Hypertension Surgical History No pertinent past surgical history Family History Family History Maternal Grandmother Cancer Mother High blood pressure Father No problems noted. Other Mental health problem Substance abuse Social History Social History (Reviewed 11/21/22 @ 11:53 by POLI Tavarez [facility] Alcohol intake: current Alcohol intake frequency: holidays/special occasions only Patient Tobacco Use Status: Former Tobacco user e-Cigarette/Vaping Use: Never Used Second Hand Smoke Exposure: Yes Substance Use Type: Marijuana Advance Directives: No Advance Directives Information Provided: No service: No Current occupational status: disabled Sexual orientation: Straight/Heterosexual Cognitive needs: No Hearing needs: No Vision needs: No Physical Exam ED Vital Signs: Vital Signs - 24 hr 03/21/23 09:24 Temperature 98.1 F Pulse Rate 87 Respiratory Rate 16 Blood Pressure 151/98 H Pulse Oximetry 96 Oxygen Delivery Method Room Air BMI result Body Mass Index 34.0 Const General: cooperative, healthy appearing, comfortable, no acute distress, well developed, alert, awake and Physically active Orientation/consciousness: oriented to person, oriented to place, oriented to time and patient oriented x3 HENMT Other: Negative for sign of Peritonsillar abscess. Negative for facial swelling or neck swelling. Negative for drooling. Negative for trismus Head: Yes normal to inspection, Yes No palpable skull fracture present, Yes normocephalic and Yes atraumatic Ears: hearing grossly normal bilaterally, external ears normal, TM's normal bilaterally, TM normal on the right, TM normal on the left, EAC's normal, mastoids normal and no periauricular adenopathy Throat: Yes posterior oropharynx normal, Yes tonsils normal and Yes uvula midline Eyes General: appearance normal, both eyes and all related structures Neck Neck: Yes normal visual inspection, Yes full ROM, Yes no lymphadenopathy, Yes no meningeal signs, Yes trachea midline, Yes supple, No anterior neck swelling and No tender Chest Chest palpation & inspection: normal inspection of the chest and normal palpation of entire chest wall Resp Effort & Inspection: normal respiratory effort and able to speak in complete sentences Auscultation: clear to auscultation bilaterally Cardio Jugular venous distension: no JVD Heart sounds: S1 normal heart sound present and S2 normal heart sound present GI Inspection: Yes normal to inspection Palpation (GI): Soft to palpation, not firm, nontender, no guarding and not rigid General: No CVA tenderness and Yes no CVA tenderness Back/Spine/Pelvis Back: no CVA tenderness, No CVA tenderness and No back tenderness Skin General skin exam: no rashes or lesions noted, elasticity normal and turgor normal Neuro General: oriented to person, oriented to place, oriented to time, patient oriented x3, gait normal, tone normal, moves all extremities, Normal light touch and pain sensation, no meningeal signs, no focal motor deficits, CN's II-XI intact bilaterally and normal sensation to monofilament Extrem General: Yes normal to inspection and Yes full ROM Psych Appearance: grossly normal, well kempt and not disheveled Medical Decision Making Medical Decision Making [facility] Narrative: 42 old female history of GERD, hypertension, recurrent strep throat presents to ED for sore throat and fever for couple of days . Patient states this has been occurring for the past 10 years of throat issues. Patient seen multiple specialists. patient speaking in full sentences. Negative for drooling. Negative for any lymphadenopathy. Negative for trismus. Negative for neck swelling/facial swelling. Negative for shortness of breath. Labs ordered mono since strep SARS ordered. 12:47pm: Patient labs are normal. [place] test negative. SARs COVID negative. Strep test positive. Presently negative for signs of peritonsillar abscess. Not suspecting Jerrod angina or retropharyngeal abscess. Not suspecting lymphoma. Negative for palpable movable lymph nodes. Patient informed to follow-up with ENT. Patient will be discharged with antibiotics. Differential Diagnosis Differential Diagnoses: The differential diagnosis associated with the presentation includes ( SARs, COVID, influenza, strep) Admission/Observation Consideration of admission/observation: Escalation of care including admission/observation considered Lab Data [facility] Lab Attestation statement: I reviewed the patient's lab results. 03/21/23 11:25 03/21/23 11:25 Labs: Lab Results 03/21/23 03/21/23 Range/Units 11:25 11:26 WBC 5.3 (4.8-10.8) X10*3/uL RBC 5.32 (4.20-5.50) X10*6/uL Hgb 14.8 (12.0-16.0) g/dl Hct 45.0 (37.0-47.0) % MCV 84.6 (80.0-98.0) fL MCH 27.8 (27.0-33.0) pg MCHC 32.9 (31.0-35.0) g/dl RDW 14.0 (11.0-16.0) % Plt Count 259 (160-400) X10*3/uL MPV 12.5 H (9.4-12.3) fL Immature Gran % (Auto) 0.6 H (0.0-0.4) % Neut % (Auto) 43.0 L (45-73) % Lymph % (Auto) 45.7 H (20-40) % [place] % (Auto) 9.3 (2-11) % Eos % (Auto) 0.6 (0-4) % Baso % (Auto) 0.8 (0-2) % Lymph # (Auto) 2.4 (1.2-4.9) X10*3/uL [place] # (Auto) 0.5 (0.1-1.2) X10*3/uL Eos # (Auto) 0.0 (0.0-0.4) X10*3/uL Baso # (Auto) 0.0 (0.0-0.2) X10*3/uL Abs Immat Gran (auto) 0.03 (0.00-0.03) X10*3/uL Absolute Neuts (auto) 2.3 (2.0-8.3) x10*3/uL Absolute Nucleated RBC 0.000 (0.0-0.012) X10*3/uL Nucleated RBC % (auto) 0.0 (0.0-0.2) /100WBC Sodium 140 (135-145) mmol/L Potassium 4.1 (3.3-5.1) mmol/L Chloride 109 H (96-108) mmol/L Carbon Dioxide 21 L (22-29) mmol/L Anion Gap 14 (12-20) BUN 12 (9-16) mg/dL Creatinine 1.19 (0.5-1.4) mg/dL Estim Creat Clear Calc 59.0 Estimated GFR 50 Random Glucose 103 (60-115) mg/dL Calcium 9.7 D (8.4-10.2) mg/dL Total Bilirubin 0.2 (0.0-1.0) mg/dL AST 22 (5-31) U/L ALT 17 (0-31) U/L Alkaline Phosphatase 52 (39-117) U/L Total Protein 8.5 H (6.5-8.0) g/dL Albumin 4.5 (3.5-5.0) g/dL Beta HCG, Quant < 2 mIU/mL Monoscreen Negative (Negative) Influenza Type A (PCR) NEGATIVE (Negative) Influenza Type B (PCR) NEGATIVE (Negative) RSV RNA Qual (PCR) NEGATIVE (Negative) SARS-CoV-2 RNA (RT-PCR) NEGATIVE (Negative) S. pyogenes GrpA HILL Positive A (Negative) Independent Historian Clinical information obtained from an independent historian. History obtained from or confirmed by: Other (patient) External Record Review External record reviewed: Other (Prior visits) Prescription Management I considered prescription management with: Antibiotic Discharge Plan Discharge Clinical Impression: Strep throat Patient Disposition: Home, Self-Care Instructions: Strep Throat (ED) Additional Instructions: please follow-up with primary care provider and our ENT specialist for re- evaluation. return to the ED immediately for any neck swelling, facial swelling, drooling, inability to tolerate solid food/liquid, chest pain, shortness of breath, fever, chills, weakness, or any other concerning symptoms. Prescriptions: New amoxicillin-pot clavulanate 875-125 mg tablet 1 tab PO Q12H 10 Days Qty: 20 0RF naproxen 500 mg tablet 500 mg PO BID PRN (Reason: pain) 7 Days Qty: 14 0RF No Action (DME) blood pressure monitor Kit See Rx Instructions .Route Qty: 1 0RF Rx Instructions: As directed albuterol sulfate 90 mcg/actuation HFA aerosol inhaler 2 puff inhalation Q6H PRN (Reason: shortness of breath or wheezing) Qty: 6.7 0RF hydroxyzine HCl 25 mg tablet 25 mg PO TID PRN (Reason: anxiety) Qty: 30 0RF amlodipine 5 mg tablet 5 mg PO DAILY Qty: 90 1RF Referrals: Silverio Sandoval [Physician] - (REcurrent strep throat. Tonsillectomy?) Stand Alone Forms: Work/School Release Interventions: ED Discharge Assessment Last Done: 03/21/23 12:59 Discharge Date/Time: 03/21/23 13:00 Print Language: Georgian
[2023-03-21 11:49] LABS: Alanine Aminotransferase 17 U/L (0-31); Albumin Level 4.5 g/dL (3.5-5.0); Alkaline Phosphatase 52 U/L (39-117); Anion Gap 14 (12-20); Aspartate Amino Transferase 22 U/L (5-31); Bilirubin Total 0.2 mg/dL (0.0-1.0); Blood Urea Nitrogen 12 mg/dL (9-16); Calcium 9.7 mg/dL (8.4-10.2); Carbon Dioxide 21 mmol/L (22-29); Chloride 109 mmol/L (96-108); Estimated Glomerular Filt Rate 50; Glucose Random 103 mg/dL (60-115); Potassium 4.1 mmol/L (3.3-5.1); Sodium 140 mmol/L (135-145); Total Protein 8.5 g/dL (6.5-8.0)
[2023-03-21 11:51] LABS: Basophils Percent Auto 0.8 % (0-2); Eosinophils Percent Auto 0.6 % (0-4); Hemoglobin 14.8 g/dl (12.0-16.0); Imm Gran Abs Auto 0.03 X10*3/uL (0.00-0.03); Imm Gran Pct Auto 0.6 % (0.0-0.4); Lymphocytes Absolute Auto 2.4 X10*3/uL (1.2-4.9); Lymphocytes Percent Auto 45.7 % (20-40); Mean Corpuscular HGB Conc 32.9 g/dl (31.0-35.0); Mean Corpuscular Hemoglobin 27.8 pg (27.0-33.0); Mean Corpuscular Volume 84.6 fL (80.0-98.0); Mean Platelet Volume 12.5 fL (9.4-12.3); Monocytes Absolute Auto 0.5 X10*3/uL (0.1-1.2); Monocytes Percent Auto 9.3 % (2-11); Neutrophils Absolute Auto 2.3 x10*3/uL (2.0-8.3); Platelet Count 259 X10*3/uL (160-400); Red Blood Count 5.32 X10*6/uL (4.20-5.50); White Blood Count 5.3 X10*3/uL (4.8-10.8)
[2023-03-21 11:54] LABS: Monotest Negative (Negative)
[2023-03-21 11:55] LABS: IDNOW Serial# 08D9AD1C; Strep A Nucleic Acid Positive (Negative)
[2023-03-21 11:58] LABS: HCG Quantitative < 2 mIU/mL
[2023-03-21 12:27] LABS: Influenza A PCR NEGATIVE (Negative); Influenza B PCR NEGATIVE (Negative); Resp Syncy Virus RNA Qual PCR NEGATIVE (Negative); SARS COV2 PCR INHOUSE NEGATIVE (Negative)
== END 2023-03-21 13:00 | disposition home or self-care (01) ==
PROVIDERS: Physician Assistant; Emergency Provider Emergency Medicine; PCP Nurse Practitioner Family
DX: J02.0 Streptococcal pharyngitis (principal); J02.9 Acute pharyngitis, unspecified; I12.9 Hypertensive chronic kidney disease with stage 1 through stage 4 chronic kidney disease, or unspecified chronic kidney disease; N18.9 Chronic kidney disease, unspecified; E78.5 Hyperlipidemia, unspecified; K21.9 Gastro-esophageal reflux disease without esophagitis; R50.9 Fever, unspecified; Z20.822 Contact with and (suspected) exposure to COVID-19; Z20.828 Contact with and (suspected) exposure to other viral communicable diseases
CPT/HCPCS: 0241U; 36415; 80053; 84702; 85025; 86308; 87651; 99282; 99283

== ENCOUNTER 2023-11-20 09:18 | Outpatient (AMB) | payer MEDICARE, MEDICAID, SELFPAY ==
[2023-11-20 09:38] VITALS: BP 128/80; PULSE 45; O2SAT 99; BMI 33.5
--- NOTE | 2023-11-20 09:38 | A.OFFPC_ITS ---
Vital Signs 11/20/23 09:38 Height 5 ft 1 in Weight 177 lb 2 oz BMI 33.5 BP 128/80 Blood Pressure Location Lt brachial Position Sitting Pulse 45 L Pulse Source Pulse Oximeter Pulse Oximetry (%) 99 Oxygen Delivery Method Room Air Intake Visit Reasons: ROBY Rainey/ annual exam Php Developer Required: No Accompanied by: Self / Same As Patient Allergies Lisinopril-hydrochlorothiazide Allergy (Mild, Uncoded 11/20/23 09:58) Itching Medication List - Last Reconciled 11/20/23 by Mary Marroquin PA-C albuterol sulfate 90 mcg/actuation 2 puffs inhalation Q6H PRN amlodipine 5 mg PO DAILY blood pressure monitor As directed hydroxyzine HCl 25 mg PO TID PRN Tobacco use date assessed: 11/21/22 Dental Screening Dental Screen Date: 11/20/23 Did you have a dental visit in the last 12 months?: Yes Did you have a dental problem in the last 6 months where you did not have access to dental care?: No Was dental information given to patient?: Patient has dentist HPI ROBY Rainey/ annual exam HPI Details 43-year-old female with past medical his tory hypertension, GERD, hyperlipidemia, chronic kidney disease stage 3, stress incontinence, and generalized anxiety disorder last seen by nurse practitioner October 2022 coming in for annual physical. Last Pap: Unsure does not regularly follow with gynecology. Last mammogram: 02/15/2022 BI-RADS 1 follow up in 1 year. Patient states she has been having increased swelling in the throat and neck area. This has been going on for several years and she has never been evaluated for this. She also mentions having difficulty swallowing which has never been evaluated. She had been seen by Gastroenterology and told she was misdiagnosed with acid reflux. She also mentioned she has incontinence mainly with jumping and sneezing. She does regularly see a psychiatrist and is presently on medications but is unsure of the names. She also mentioned she was seen at [facility] several months ago and was diagnosed with some kind of heart disorder. Lastly she mentions she does have chronic nausea with occasional vomiting. She does endorse smoking marijuana on a daily basis. [facility] Medical History Bilateral impacted cerumen Encounter to establish care Fibroids Obesity (BMI 35.0-39.9 without comorbidity) Hypertension Surgical History No pertinent past surgical history Family History Maternal Grandmother Cancer Mother High blood pressure Father No problems noted. Other Mental health problem Substance abuse Social History Housing: Condominium Alcohol intake: current Alcohol intake frequency: holidays/special occasions only Patient Tobacco Use Status: Never used Tobacco e-Cigarette/Vaping Use: Never Used Second Hand Smoke Exposure: Yes Substance Use Type: Marijuana service: No Current occupational status: disabled Sexual orientation: Straight/Heterosexual Cognitive needs: No Hearing needs: No Vision needs: No Female Reproductive History Menstrual Age of Menarche: 11 control method: none Total pregnancies: 2 Full term: 2 Number of Living Children: 2 History of abnormal pap smear: No History of STI: Yes History of abnormal mammogram: No Questionnaire PHQ-9 Over the last 2 weeks, how often have you been bothered by any of the following problems? 1. Little interest or pleasure in doing things: several days 2. Feeling down, depressed, or hopeless: more than half the days 3. Trouble falling or staying asleep, or sleeping too much: more than half the days 4. Feeling tired or having little energy: more than half the days 5. Poor appetite or overeating: not at all 6. Feeling bad about yourself - or that you are a failure or have let yourself or your family down: not at all 7. Trouble concentrating on things, such as reading the newspaper or watching television: not at all 8. Moving or speaking so slowly that other people could have noticed. Or the opposite - being so fidgety or restless that you have been moving around a lot more than usual: not at all 9. Thoughts that you would be better off or of hurting yourself in some way : not at all Total score: 7 Source: Developed by Drs. Willy Young, Ruth Churchill, Donald Barraza and colleagues, with an educational renato from [employer]. Thrive Questionnaire Date Thrive assessed: 11/20/23 I am a: Patient What is your living situation today?: I have a steady place to live Within the past 12 months, did the food you bought not last and you didn't have the money to get more?: Often true Within the past 12 months, did you worry whether your food would run out before you got money to buy more?: Sometimes True Do you have trouble paying for medicines?: No Do you have trouble getting transportation to medical appointments?: No Do you have trouble paying your heating and electricity bill?: Yes Do you have trouble taking care of your child, family member or friend?: No Do you have trouble with day-to-day activities such as bathing, preparing meals, shopping, managing finances, etc.?: No Are you currently unemployed and looking for a job?: Yes Are you interested in more education?: No Please select the resources that you would like help with: Food, Utilities and None THRIVE Score: 3 AUDIT C Alcohol Use Questionnaire (AUDIT-C) 1. How often do you have a drink containing alcohol?: Never Total Score: 0 ADAIR-7 AMB Questionnaire ADAIR-7 Date ADAIR - 7 assessed: 11/20/23 Feeling nervous, anxious, or on edge: 1 = Several days Not being able to stop or control worryin = Several days Worrying too much about different things: 1 = Several days Trouble relaxin = Several days Being so restless that it is hard to sit still: 0 = Not at all Becoming easily annoyed or irritable: 1 = Several days Feeling afraid as if something awful might happen: 0 = Not at all Total ADAIR-7 score (0-4 normal; 5-9 mild; 10-14 moderate; 15-21 severe): 5 Source: Developed by Drs. Willy Young, Ruth Churchill, Donald Barraza and colleagues, with an educational renato from [employer]. Review of Systems Const Denies body aches, Denies fatigue, Denies fever(s), Denies frequent falls, Denies headache(s) and Denies weakness Eyes Reports no additional complaints and Denies change in vision ENT Reports dysphagia, Denies dizziness, Denies facial pain, Denies headache(s), Denies nasal congestion and Denies odynophagia Card Denies chest pain, Denies syncope, Denies irregular heart rhythm, Denies leg edema, Denies lightheadedness and Reports dyspnea Resp Details: Has not use inhaler Denies cough and Reports dyspnea GI Denies constipation, Reports dysphagia, Denies dyspepsia, Denies diarrhea, Reports nausea, Denies odynophagia and Reports vomiting Denies urinary frequency, Denies dysuria, Reports urinary incontinence, Denies urinary hesitancy and Reports urinary urgency Musc Denies back pain and Denies myalgias Skin/Breast Reports system reviewed and no additional complaints, except as documented Neuro Denies dizziness, Denies syncope, Denies frequent falls, Denies headache(s) and Denies weakness Psych Reports no additional complaints Endo Denies fatigue Physical exam (Primary Care) Vital Signs: Last Vital Signs Pulse 45 L 11/20/23 09:38 BP 128/80 11/20/23 09:38 Pulse Ox 99 11/20/23 09:38 Oxygen Delivery Method Room Air 11/20/23 09:38 BMI result Body Mass Index 33.5 Tobacco/Smoking Status: Tobacco use Status Tobacco use date assessed 11/21/22 11/20/23 09:42 Patient Tobacco Use Status Never used Tobacco 11/20/23 10:00 e-Cigarette/Vaping Use Never Used 11/20/23 09:42 PHQ-9: PHQ-9 Score PHQ-9: Total score 7 11/20/23 10:34 Thrive Assessment: Date of Thrive Assessment Date Thrive assessed 11/20/23 11/20/23 09:42 Const General: cooperative, healthy appearing, comfortable and no acute distress Orientation/consciousness: patient oriented x3 HENMT Head: Yes normocephalic Ears: hearing grossly normal bilaterally General nose exam: Normal external nose present Eyes General: appearance normal, both eyes and all related structures Conjunctivae: conjunctivae normal Neck Neck: Yes full ROM and Yes no lymphadenopathy Thyroid: diffusely enlarged, not firm, no masses and nontender Resp Effort & Inspection: normal respiratory effort Auscultation: clear to auscultation bilaterally, no crackles, no rales, no rhonchi and no wheezes Cardio Rate: regular rate Rhythm: regular rhythm GI Palpation (GI): Soft to palpation, not firm, nontender, no guarding and not rigid General: Yes no CVA tenderness Back/Spine/Pelvis Back: no CVA tenderness Skin General skin exam: no rashes or lesions noted Neuro General: patient oriented x3 Gait exam (Neuro): Normal gait present Extrem General: Yes normal to inspection, Yes full ROM and No edema Psych Affect: normal affect Attitude: cooperative Insight: Good insight present (Psych) Judgement: Good judgement present (Psych) Assessment and Plan Assessment & Plan (1) Stress incontinence: Code(s): N39.3 - Stress incontinence (female) (male) Plan: Not currently on medication. Primarily has issue with running or sneezing. Advised patient to trial pelvic floor exercises for stress incontinence and follow up if symptoms worsen or do not improve. (2) Generalized anxiety disorder: Code(s): F41.1 - Generalized anxiety disorder Plan: Continue to take hydroxyzine as needed. (3) CKD (chronic kidney disease) stage 3, GFR 30-59 ml/min: Code(s): N18.30 - Chronic kidney disease, stage 3 unspecified Plan: Avoid kidney intermittent such as NSAIDs. Stay well hydrated. We will continue to monitor with labs. (4) GERD (gastroesophageal reflux disease): Code(s): K21.9 - Gastro-esophageal reflux disease without esophagitis Plan: Not currently on medical management. Avoid trigger foods such as citrus, tomato products, soda, caffeine, spicy foods and other foods that may be irritating to your stomach. Avoid laying flat 3-4 hours after eating and elevate the head of the bed 30 degrees to prevent acid from moving into the esophagus. (5) Hypertension: Code(s): I10 - Essential (primary) hypertension Plan: Continue on amlodipine. Avoid salt intake and encourage healthy diet and regular exercise. (6) Obesity (BMI 35.0-39.9 without comorbidity): Code(s): E66.9 - Obesity, unspecified Plan: Encouraged healthy diet and regular exercise. (7) Enlarged thyroid: Code(s): E04.9 - Nontoxic goiter, unspecified Plan: On exam patient has enlarged thyroid and mentions it has been getting bigger throughout the year. Ordered for thyroid ultrasound for further evaluation. We will follow up in 3 months. And ordered for thyroid labs. (8) Difficulty swallowing: Code(s): R13.10 - Dysphagia, unspecified Plan: Patient states she has difficulty swallowing typically with eating or drinking and has noticed a difference in it worsening throughout the years. Ordered for barium swallow for further evaluation. Follow up in 3 months. (9) Nausea & vomiting: Code(s): R11.2 - Nausea with vomiting, unspecified Plan: Patient has occasional nausea and vomiting. Discussed that this may be a result of acid reflux and also maybe related to marijuana. Advised patient to stay away from normal triggers of acid reflux into decreased her smoking to see if symptoms improve. Plan This note was constructed using voice recognition software. While every effort has been made to ensure accuracy and tuberculosis specialist, still areas may have been included sometimes these areas may affect the content or meeting of the given symptoms. Total time spent caring for the patient today was 30 minutes. This includes time spent before the visit reviewing the chart, time spent during the visit, and time spent after the visit and documentation. Orders: Orders Complete Blood Count Auto Diff Today Z00.00 - Encounter for general adult medical examination without abnormal findings Comprehensive Met. Panel Today Z00.00 - Encounter for general adult medical examination without abnormal findings Free T4 (Free Thyroxine) Today Z00.00 - Encounter for general adult medical examination without abnormal findings TSH reflex Free T4 Today Z00.00 - Encounter for general adult medical examination without abnormal findings Lipid Panel Today Z00.00 - Encounter for general adult medical examination without abnormal findings UA CC w/rflx Micro + Cult Today N39.3 - Stress incontinence (female) (male) MM tomosynthesis screening BI Today Z12.31 - Encounter for screening mammogram for malignant neoplasm of breast Vitamin D 25-OH (D2 and D3) Today Z00.00 - Encounter for general adult medical examination without abnormal findings Vitamin B12 and Folate Today Z00.00 - Encounter for general adult medical examination without abnormal findings US thyroid Today E04.9 - Nontoxic goiter, unspecified, R13.10 - Dysphagia, unspecified FL barium swallow Today R13.10 - Dysphagia, unspecified Referrals FREELANCE DIGITAL PROJECT MANAGER Referral Z00.00 - Encounter for general adult medical examination without abnormal findings Cologuard Test Z12.11 - Encounter for screening for malignant neoplasm of colon Coding Level of Care Code Est Pt Level 4 (74987) Diagnoses Stress incontinence N39.3 Generalized anxiety disorder F41.1 CKD (chronic kidney disease) stage 3, GFR 30-59 ml/min N18.30 GERD (gastroesophageal reflux disease) K21.9 Hypertension I10 Obesity (BMI 35.0-39.9 without comorbidity) E66.9 Enlarged thyroid E04.9 Difficulty swallowing R13.10 Nausea & vomiting R11.2
== END 2023-11-20 10:34 | disposition home or self-care (01) ==
PROVIDERS: PCP Nurse Practitioner Family
DX: I12.9 Hypertensive chronic kidney disease with stage 1 through stage 4 chronic kidney disease, or unspecified chronic kidney disease (principal); N18.30 Chronic kidney disease, stage 3 unspecified; E66.9 Obesity, unspecified; Z68.33 Body mass index [BMI] 33.0-33.9, adult; N39.3 Stress incontinence (female) (male); F41.1 Generalized anxiety disorder; K21.9 Gastro-esophageal reflux disease without esophagitis; E04.9 Nontoxic goiter, unspecified; R13.10 Dysphagia, unspecified; R11.2 Nausea with vomiting, unspecified
CPT/HCPCS: 99214

== ENCOUNTER 2023-11-21 08:51 | Outpatient (REF) | payer MEDICARE, SELFPAY ==
[2023-11-21 09:07] LABS: MANUAL DIFF FLAG NO
[2023-11-21 09:36] LABS: Basophils Absolute Auto 0.1 X10*3/uL (0.0-0.2); Eosinophils Absolute Auto 0.2 X10*3/uL (0.0-0.4); Eosinophils Percent Auto 2.9 % (0-4); Hematocrit 40.2 % (37.0-47.0); Hemoglobin 13.1 g/dl (12.0-16.0); Imm Gran Abs Auto 0.01 X10*3/uL (0.00-0.03); Imm Gran Pct Auto 0.1 % (0.0-0.4); Lymphocytes Absolute Auto 3.9 X10*3/uL (1.2-4.9); Lymphocytes Percent Auto 56.3 % (20-40); Mean Corpuscular HGB Conc 32.6 g/dl (31.0-35.0); Mean Corpuscular Hemoglobin 27.6 pg (27.0-33.0); Mean Corpuscular Volume 84.6 fL (80.0-98.0); Mean Platelet Volume 12.4 fL (9.4-12.3); Monocytes Absolute Auto 0.5 X10*3/uL (0.1-1.2); Monocytes Percent Auto 7.9 % (2-11); Neutrophils Absolute Auto 2.2 x10*3/uL (2.0-8.3); Neutrophils Percent Auto 31.8 % (45-73); Platelet Count 234 X10*3/uL (160-400); Red Blood Count 4.75 X10*6/uL (4.20-5.50); White Blood Count 6.8 X10*3/uL (4.8-10.8)
[2023-11-21 10:02] LABS: Alanine Aminotransferase 15 U/L (0-31); Albumin Level 4.3 g/dL (3.5-5.0); Alkaline Phosphatase 50 U/L (39-117); Anion Gap 10 (12-20); Aspartate Amino Transferase 15 U/L (5-31); Bilirubin Total 0.5 mg/dL (0.0-1.0); Blood Urea Nitrogen 10 mg/dL (9-16); Calcium 9.7 mg/dL (8.4-10.2); Carbon Dioxide 26 mmol/L (22-29); Chloride 108 mmol/L (96-108); Cholesterol 183 mg/dL (<200); Estimated Glomerular Filt Rate 53; Glucose Random 89 mg/dL (60-115); HDL Cholesterol 46 mg/dL (>40); LDL Cholesterol Calculated 117 mg/dL (<100); Sodium 140 mmol/L (135-145); Total Protein 7.4 g/dL (6.5-8.0); Triglycerides 100 mg/dL (<150)
[2023-11-21 10:19] LABS: Free T4 (Free Thyroxine) 0.85 ng/dL (0.71-1.85); TSH reflex Free T4 0.74 uIU/mL (0.32-4.0)
[2023-11-21 10:29] LABS: Folate 8.1 ng/mL (> or = 4.0); Vitamin B12 310 pg/mL (200-900)
[2023-11-21 11:10] LABS: Appearance Urine Clear; Color Urine Yellow; Glucose Urine UA Negative (Negative); Leukocyte Esterase Urine Trace (Negative); Nitrite Urine Negative (Negative); PH 5.5 (5.0-9.0); Specific Gravity - Urine 1.025 (1.005-1.025); UMIC TRIGGER UACC YES; Urine Blood Negative (Negative); Urine Ketones Trace mg/dL (Negative); Urine Protein Trace mg/dL (Neg-Trace)
[2023-11-21 11:17] LABS: Bacteria Urine None Seen (None Seen); Hyaline Casts Urine 0-2 /LPF (0-2); RBC Urine 0-2 /HPF (0-2); WBC Urine 0-5 /HPF (0-5)
[2023-11-28 14:54] LABS: Vitamin D 25-OH, D2 <4 ng/mL; Vitamin D 25-OH, D3 16 ng/mL; Vitamin D 25-OH, Total 16 ng/mL (30-100)
== END 2023-11-21 08:52 | disposition home or self-care (01) ==
LOC: HO.LAB 08:51
DX: Z00.00 Encounter for general adult medical examination without abnormal findings (principal)
CPT/HCPCS: 36415; 80053; 80061; 81001; 82306; 82607; 82746; 84439; 84443; 85025

== ENCOUNTER 2023-11-25 15:03 | Outpatient (REF) | payer MEDICARE, SELFPAY ==
--- NOTE | ~2023-11-25 | US_ITS ---
EXAMINATION: US THYROID CLINICAL INFORMATION: Nontoxic goiter, unspecified. COMPARISON: CT soft tissue neck with contrast 12/06/2019. TECHNIQUE: Linear transducer grayscale and color Doppler examination with attention to the region of the thyroid. FINDINGS: SIZE: Measurements of the thyroid lobes and nodules are given in sagittal, anteroposterior and transverse dimensions respectively. Right Thyroid Lobe: 4.7 x 1.0 x 1.8 cm, volume 4.3 mL. Parenchyma: The gland echotexture is homogeneous. Thyroid vascularity is normal. Left Thyroid Lobe: 4.5 x 1.5 x 1.5 cm, volume 5.2 mL. Parenchyma: The gland echotexture is homogeneous. Thyroid vascularity is normal. Isthmus: 0.2 cm in maximum AP dimension. No focal thyroid nodule is seen. NODES: No lymphadenopathy is seen in the tissue surrounding the thyroid gland. US/US thyroid IMPRESSION: Normal-appearing thyroid. ACR TI-RADS RECOMMENDATION REFERENCE: Ultrasound-guided fine-needle aspiration, followup ultrasound, no further follow up. * TR1 (0 point) and TR2 (2 points): No FNA or follow up. * TR3 (3 points): FNA if more than or equal to 2.5 cm in maximum dimension, followup ultrasound in 1, 3 and 5 years if 1.5 to 2.4 cm in maximum dimension. * TR4 (4-6 points): FNA if more than or equal to 1.5 cm in maximum dimension, followup ultrasound in 1, 2, 3 and 5 years if 1 to 1.4 cm in maximum dimension. * TR5 (more than or equal to 7 points): FNA if more than or equal to 1 cm in maximum dimension, followup ultrasound every year for 5 years if 0.5 to 0.9 cm in maximum dimension. * TR3, TR4 or TR5 nodules that are below the size threshold for followup receive no follow up. Electronically signed by: Deonte Hunter MD 12/10/2023 12:20 AM EDT
== END 2023-11-25 15:04 | disposition home or self-care (01) ==
LOC: HO.US 15:03
DX: E04.9 Nontoxic goiter, unspecified (principal); R13.10 Dysphagia, unspecified
CPT/HCPCS: 76536

== ENCOUNTER 2024-01-26 08:55 | Outpatient (REF) | payer MEDICARE, SELFPAY ==
[2024-01-27 05:50] LABS: CT PCR NOT DETECTED (Not Detect.); NG PCR NOT DETECTED (Not Detect.)
[2024-01-27 11:17] LABS: Bacterial Vaginosis PCR POSITIVE (Negative); Candida Group PCR NOT DETECTED (Not Detect); Candida glab krusei PCR NOT DETECTED (Not Detect); Trichomonas vaginalis PCR NOT DETECTED (Not Detect)
== END 2024-01-26 08:56 | disposition home or self-care (01) ==
LOC: HO.LAB 08:55
PROVIDERS: Visit Provider Advanced Practice Midwife
DX: Z13.89 Encounter for screening for other disorder (principal)
CPT/HCPCS: 0352U; 87491; 87591; 99386

== ENCOUNTER 2024-01-26 08:55 | Outpatient (AMB) | payer MEDICARE, SELFPAY ==
[2024-01-26 09:35] VITALS: BP 130/74; BMI 31.2
--- NOTE | 2024-01-26 09:35 | MHC.OFFVIS ---
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 Trainer Required: No Information Interpreted: clinical only Purchaser: Purchaser Present Allergies Lisinopril-hydrochlorothiazide Allergy (Mild, Uncoded 01/26/24 09:36) Itching Medication List - Last Reconciled 01/26/24 by Christina Pizarro CNM albuterol sulfate 90 mcg/actuation 2 puffs inhalation Q6H PRN amlodipine 5 mg PO DAILY blood pressure monitor As directed cholecalciferol (vitamin D3) 25 mcg PO DAILY hydroxyzine HCl 25 mg PO TID PRN Is last menstrual period known: Yes Last menstrual period: 01/22/24 HPI HPI 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 She does not think she has ever had an abnormal Pap smear. She did not bring it up but her last encounters were about abnormal bleeding and she had an ultrasound noting small fibroids and an endometrial biopsy and she was placed on the OCPs which helped with her menses but she did not stay on them. She found she was forgetting and then she would have spotting so now she has regular periods though this when she thought had ended and it has kind of started up again so they can some had the 5 or 6 days sometimes 8. 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 She is not sexually active and if she became so she is condoms. She has not been for a while She had 2 kids all her mammogram so she will reschedule that She recently had a whole lot of fasting blood work for her primary care provider. She is on medication for high blood pressure she has stage 3 kidney disease which she is not on any particular medicines for though I told her that her blood pressure is probably helping that is well. [facility] Medical History Bilateral impacted cerumen Encounter to establish care Fibroids Obesity (BMI 35.0-39.9 without comorbidity) Hypertension Surgical History No pertinent past surgical history Family History Maternal Grandmother Cancer Mother High blood pressure Father No problems noted. Other Mental health problem Substance abuse Social History Housing: Condominium Alcohol intake: current Alcohol intake frequency: holidays/special occasions only Patient Tobacco Use Status: Never used Tobacco e-Cigarette/Vaping Use: Never Used Second Hand Smoke Exposure: Yes Substance Use Type: Marijuana service: No Current occupational status: disabled Sexual orientation: Straight/Heterosexual Cognitive needs: No Hearing needs: No Vision needs: No Female Reproductive History Menstrual Age of Menarche: 11 Duration of menses: 3-5 days Date of last menstrual period: 01/22/24 control method: none Total pregnancies: 2 Full term: 2 Date of last pap smear: 04/22/19 (per patient ,neg.) Date of Mammogram: 02/15/22 (negative) Physical Exam Vital Signs: Last Vital Signs BP 130/74 01/26/24 09:35 BMI result Body Mass Index 31.2 Const General: healthy appearing, comfortable, no acute distress, well developed and alert Nutritional Appearance: average body habitus Orientation/consciousness: patient oriented x3 Limitations: no limitations HEENT Head: Yes normocephalic Neck Neck: Yes normal visual inspection Chest Chest palpation & inspection: normal inspection of the chest Breast/axilla inspection: normal inspection of the breasts and normal inspection of the axillae Breast/axilla palpation: normal palpation of the breasts and normal palpation of the axillae Resp Effort & Inspection: normal respiratory effort GI Inspection: Yes normal to inspection, No Abdominal wall edema and No distended Palpation (GI): Soft to palpation and nontender Other: External exam within limits vagina pink and moist with healthy normal menses cervix multiparous pink smooth mobile nontender uterus mobile nontender does not feel enlarged midposition adnexa nontender good tone with Kegel. General: Yes bladder normal to palpation External Female Exam: normal external appearance and normal appearance of the urethra Speculum Exam - Vagina: normal appearance of the vagina, normal palpation and normal vaginal discharge Speculum Exam - Cervix: normal appearance of the cervix, normal palpation and nontender Bimanual exam- vagina & uterus: normal bimanual exam, normal palpation, uterine size normal, bladder normal to palpation, consistency normal, normal palpation, uterine mobility normal, uterine shape normal, No Cervical tenderness present, non-tender and no cervical motion tenderness Bimanual Exam- Adnexa, other: normal adnexae, no masses, normal and No adnexal tenderness Neuro General: patient oriented x3 Assessment & Plan Assessment & Plan (1) Hypertension: Code(s): I10 - Essential (primary) hypertension Category: Medical (2) Fibroids: Comment: Periods are sometimes long. They are regular however will get ultrasound to assess any change in fibroids. Not anemic. Code(s): D21.9 - Benign neoplasm of connective and other soft tissue, unspecified Category: Medical (3) Well woman exam with routine gynecological exam: Code(s): Z01.419 - Encounter for gynecological examination (general) (routine) without abnormal findings Category: Medical (4) Cervical cancer screening: Code(s): Z12.4 - Encounter for screening for malignant neoplasm of cervix Category: Medical (5) Obesity (BMI 30-39.9): Comment: Patient shared she has lost 40-45 lb through healthy eating and increased walking! Code(s): E66.9 - Obesity, unspecified Category: Medical Plan -----Discussed in this visit the following: healthy balanced diet, regular and consistent exercise, getting recommended health screens, doing the best she can for her particular health concerns, kegel exercises, pap smear screening and followup recommendations, mammography screening and SBE, normal changes in cycles in her life stage--- . Reviewed everything HPI she is following up with her primary care. She is not anemic so despite these periods that sometimes be long it is not making her anemic. She does have a history of fibroids so I did offer her an ultrasound to check on whether not this could be a contributing factor if they have increased in size. She asked what could be done they have a what could make periods analytical lab analyst and I reviewed that the progestin only pills that she had been given in 2020 would be an option as well as Mirena IU S/IUD that would help thin the lining of the uterus and contribute to less heavy periods. We will have a visit after the ultrasound to review the results and discuss management if any She will be rescheduling mammogram I did review her H&H with her Pap smear was done as well as testing for STIs normal juan manuel discussed that she does not have to treat presence Gardnerella or yeast she has symptoms. Congratulated on her excellent self-care efforts weight loss and exercise and healthy eating. Orders: Orders US pelvic and transvaginal Today D21.9 - Benign neoplasm of connective and other soft tissue, unspecified, I10 - Essential (primary) hypertension, Z01.419 - Encounter for gynecological examination (general) (routine) without abnormal findings, Z12.4 - Encounter for screening for malignant neoplasm of cervix Coding Level of Care Code New Pt Prev Care 40-64y(22207) Diagnoses Hypertension I10 Fibroids D21.9 Well woman exam with routine gynecological exam Z01.419 Cervical cancer screening Z12.4 Obesity (BMI 30-39.9) E66.9
== END 2024-01-26 10:54 | disposition home or self-care (01) ==
LOC: HO.HWSM 08:56
PROVIDERS: Visit Provider Advanced Practice Midwife
DX: Z01.419 Encounter for gynecological examination (general) (routine) without abnormal findings (principal); I10 Essential (primary) hypertension; D21.9 Benign neoplasm of connective and other soft tissue, unspecified; E66.9 Obesity, unspecified
CPT/HCPCS: 99386

== ENCOUNTER 2024-01-26 13:21 | Outpatient (REF) | payer MEDICARE, SELFPAY ==
[2024-01-27 10:30] LABS: HPV 16,18/45 See PAP report
== END 2024-01-26 13:22 | disposition home or self-care (01) ==
LOC: HO.LNP 13:21
PROVIDERS: Visit Provider Advanced Practice Midwife
DX: Z01.419 Encounter for gynecological examination (general) (routine) without abnormal findings (principal); I10 Essential (primary) hypertension; D21.9 Benign neoplasm of connective and other soft tissue, unspecified; Z12.4 Encounter for screening for malignant neoplasm of cervix; E66.9 Obesity, unspecified; N89.8 Other specified noninflammatory disorders of vagina; Z20.2 Contact with and (suspected) exposure to infections with a predominantly sexual mode of transmission
CPT/HCPCS: 0352U; 87491; 87591; 87624; 88175; 99386

== ENCOUNTER 2024-02-16 09:28 | Outpatient (AMB) | payer MEDICARE, SELFPAY ==
[2024-02-16 09:33] VITALS: BP 138/90; PULSE 78; O2SAT 98; BMI 33.3
--- NOTE | 2024-02-16 09:33 | MHC.PC.OV ---
Vital Signs 02/16/24 09:33 Height 5 ft 1 in Weight 176 lb BMI 33.3 BP 138/90 H Blood Pressure Location Lt brachial Position Sitting Pulse 78 Pulse Source Pulse Oximeter Pulse Oximetry (%) 98 Oxygen Delivery Method Room Air Intake Visit Reasons: 3 Month follow up Allergies Lisinopril-hydrochlorothiazide Allergy (Mild, Uncoded 02/16/24 09:33) Itching Medication List - Last Reconciled 02/16/24 by Mary Marroquin PA-C albuterol sulfate 90 mcg/actuation 2 puffs inhalation Q6H PRN amlodipine 5 mg PO DAILY blood pressure monitor As directed cholecalciferol (vitamin D3) 25 mcg PO DAILY hydroxyzine HCl 25 mg PO TID PRN metronidazole 0.75%(37.5mg/5gram) 1 appful vaginal BEDTIME 5 days Tobacco use date assessed: 02/16/24 Dental Screening Dental Screen Date: 11/20/23 HPI 3 Month follow up HPI Details 43-year-old female with past medical history hypertension, GERD, hyperlipidemia, chronic kidney disease stage 3, stress incontinence, and generalized anxiety disorder last seen October 2023 coming in for follow up. Patient states she has not yet completed the barium swallow because of scheduling issues. She does still have choking episodes and feels she has difficulty swallowing when she eats. She also mentioned choking episodes in the middle of the night which have been going on for about a year but has been worsening over the last several months. She also mentioned having intermittent palpitations daily that are sometimes associated with shortness of breath. [facility] Medical History Bilateral impacted cerumen Encounter to establish care Fibroids Obesity (BMI 35.0-39.9 without comorbidity) Hypertension Surgical History No pertinent past surgical history Family History Maternal Grandmother Cancer Mother High blood pressure Father No problems noted. Other Mental health problem Substance abuse Social History Housing: Condominium Alcohol intake: current Alcohol intake frequency: holidays/special occasions only Patient Tobacco Use Status: Never used Tobacco e-Cigarette/Vaping Use: Never Used Second Hand Smoke Exposure: Yes Substance Use Type: Marijuana service: No Current occupational status: disabled Sexual orientation: Straight/Heterosexual Cognitive needs: No Hearing needs: No Vision needs: No Female Reproductive History Menstrual Age of Menarche: 11 Questionnaire Thrive Questionnaire Date Thrive assessed: 11/20/23 I am a: Patient What is your living situation today?: I have a steady place to live Within the past 12 months, did the food you bought not last and you didn't have the money to get more?: Often true Within the past 12 months, did you worry whether your food would run out before you got money to buy more?: Sometimes True Do you have trouble paying for medicines?: No Do you have trouble getting transportation to medical appointments?: No Do you have trouble paying your heating and electricity bill?: Yes Do you have trouble taking care of your child, family member or friend?: No Do you have trouble with day-to-day activities such as bathing, preparing meals, shopping, managing finances, etc.?: No Are you currently unemployed and looking for a job?: Yes Are you interested in more education?: No Currently or been in a relationship where the following occur: I choose not to answer THRIVE Score: 3 AUDIT C Alcohol Use Questionnaire (AUDIT-C) 1. How often do you have a drink containing alcohol?: Never 3. How often do you have six or more drinks on one occasion?: Never Total Score: 0 ADAIR-7 AMB Questionnaire ADAIR-7 Date ADAIR - 7 assessed: 11/20/23 Source: Developed by Drs. Willy Young, Ruth Churchill, Donald Barraza and colleagues, with an educational renato from [employer]. Review of Systems Const Denies body aches, Denies chills, Denies fever(s), Denies headache(s) and Denies poor appetite Eyes Reports no additional complaints ENT Reports dysphagia, Denies dizziness, Denies headache(s) and Denies odynophagia Card Denies chest pain, Denies syncope, Denies edema, Denies irregular heart rhythm, Denies lightheadedness and Reports dyspnea (Occasional) Resp Denies cough and Reports dyspnea (Occasional) GI Denies abdominal pain, Reports dysphagia, Denies nausea, Denies odynophagia and Denies vomiting Reports no additional complaints Musc Reports no additional complaints and Denies abnormal gait Skin/Breast Reports system reviewed and no additional complaints, except as documented Neuro Denies abnormal gait, Denies dizziness, Denies syncope and Denies headache(s) Psych Reports no additional complaints Physical exam (Primary Care) Vital Signs: Last Vital Signs Pulse 78 02/16/24 09:33 BP 138/90 H 02/16/24 09:33 Pulse Ox 98 02/16/24 09:33 Oxygen Delivery Method Room Air 02/16/24 09:33 BMI result Body Mass Index 33.3 Tobacco/Smoking Status: Tobacco use Status Tobacco use date assessed 02/16/24 02/16/24 09:34 Patient Tobacco Use Status Never used Tobacco 02/16/24 09:34 e-Cigarette/Vaping Use Never Used 02/16/24 09:34 Thrive Assessment: Date of Thrive Assessment Date Thrive assessed 11/20/23 02/16/24 09:34 Currently or been in a relationship where the following occur: I choose not to answer Const General: cooperative, healthy appearing, comfortable and no acute distress Orientation/consciousness: patient oriented x3 HENMT Head: Yes normocephalic Ears: hearing grossly normal bilaterally General nose exam: Normal external nose present Eyes General: appearance normal, both eyes and all related structures Conjunctivae: conjunctivae normal Neck Neck: Yes full ROM and Yes no lymphadenopathy Resp Effort & Inspection: normal respiratory effort Auscultation: clear to auscultation bilaterally, no crackles, no rales, no rhonchi and no wheezes Cardio Rate: regular rate Rhythm: regular rhythm Skin General skin exam: no rashes or lesions noted Neuro General: patient oriented x3 Gait exam (Neuro): Normal gait present Extrem General: Yes normal to inspection, Yes full ROM and No edema Psych Affect: normal affect Attitude: cooperative Insight: Good insight present (Psych) Judgement: Good judgement present (Psych) Coding Level of Care Code Est Pt Level 4 (42897) Diagnoses Palpitations R00.2 Hypersomnia G47.10 Obesity (BMI 30-39.9) E66.9 Difficulty swallowing R13.10 Hypertension I10 Obesity (BMI 35.0-39.9 without comorbidity) E66.9 Assessment & Plan Assessment & Plan (1) Palpitations: Code(s): R00.2 - Palpitations Category: Medical Plan: Ordered for Holter monitor for further evaluation. Denies any chest pain with the palpitations and states they are random and not exercise induced. (2) Hypersomnia: Code(s): G47.10 - Hypersomnia, unspecified Category: Medical Plan: Ordered for home sleep study due to hypersomnia and occasional choking episodes at night. (3) Obesity (BMI 30-39.9): Comment: Patient shared she has lost 40-45 lb through healthy eating and increased walking! Code(s): E66.9 - Obesity, unspecified Category: Medical Plan: Healthy diet and regular exercise is encouraged. (4) Difficulty swallowing: Code(s): R13.10 - Dysphagia, unspecified Category: Medical Plan: Advised patient to reach out to Radiology to reschedule the barium swallow study. In the meantime work on taking smaller bites drinking plenty of water with food. (5) Hypertension: Code(s): I10 - Essential (primary) hypertension Category: Medical Plan: Continue on current blood pressure medication. Avoid salt intake and encourage healthy diet and regular exercise. (6) Obesity (BMI 35.0-39.9 without comorbidity): Code(s): E66.9 - Obesity, unspecified Category: Medical Plan: Healthy diet and regular exercise is encouraged. Plan This note was constructed using voice recognition software. While every effort has been made to ensure accuracy and associate professor of kinesiology, still areas may have been included sometimes these areas may affect the content or meeting of the given symptoms. Total time spent caring for the patient today was 30 minutes. This includes time spent before the visit reviewing the chart, time spent during the visit, and time spent after the visit and documentation. Orders: Orders RT home sleep study Today G47.10 - Hypersomnia, unspecified ECG 3 day holter monitor Today R00.2 - Palpitations Medications: Refilled amlodipine 5 mg PO DAILY 90 tabs 2RF
== END 2024-02-16 10:10 | disposition home or self-care (01) ==
DX: R00.2 Palpitations (principal); G47.10 Hypersomnia, unspecified; E66.9 Obesity, unspecified; R13.10 Dysphagia, unspecified; Z68.33 Body mass index [BMI] 33.0-33.9, adult; I10 Essential (primary) hypertension

== ENCOUNTER → 2024-02-16 09:28 | Outpatient (BNVA) | payer MEDICARE, SELFPAY | DX: R00.2 Palpitations (principal); G47.10 Hypersomnia, unspecified; E66.9 Obesity, unspecified; R13.10 Dysphagia, unspecified; I10 Essential (primary) hypertension | CPT/HCPCS: 99212 ==

== ENCOUNTER 2024-03-04 08:40 | Outpatient (AMB) | payer OTHER, SELFPAY ==
--- NOTE | 2024-03-04 09:00 | MHC.OFFVIS ---
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 Other Mental health problem Substance abuse Social History Housing: Condominium Alcohol intake: current Alcohol intake frequency: holidays/special occasions only Patient Tobacco Use Status: Never used Tobacco e-Cigarette/Vaping Use: Never Used Second Hand Smoke Exposure: Yes Substance Use Type: Marijuana service: No Current occupational status: disabled Sexual orientation: Straight/Heterosexual Cognitive needs: No Hearing needs: No Vision needs: No Female Reproductive History Menstrual Age of Menarche: 11 Review of Systems Const All systems reviewed & are unremarkable except as noted in HPI and below Reports as per HPI and Reports no additional complaints GI Reports no additional complaints Reports no additional complaints Physical Exam Vital Signs: BMI result Body Mass Index 33.3 Office Procedures Colposcopy Colposcopy: Pre-Procedure Counseling: Before beginning the procedure, I conducted comprehensive counseling with the patient. We thoroughly discussed the procedure itself, including its details, alternatives, and all associated risks. This included but not limited to the following complications such as bleeding, infection, and injury to the vagina, bladder, and vessels, as well as the potential need for transfusion with all its associated risks. Subsequently, the patient sign the consent. Pap smear result: Ascus HPV E6 E7 positive, HPV 16/18/45 negative Urine test in office = Negative Procedure: During the procedure, the following steps were performed: A speculum was inserted, and acetic acid was applied. Colposcopy was conducted, allowing visualization of the transformation zone. Acetowhite lesions were identified at the 6+11+12+1 o'clock position. Cervical biopsies were obtained from the 6+11+12+1 o'clock position, followed by an endocervical curettage (ECC). Vaginoscopy of the upper vagina revealed no evidence of aceto-white lesions. Hemostasis was achieved using Monsel solution, and the patient tolerated the procedure well. Post-Procedure Instructions: The patient was advised to promptly contact the office or the after hours answering service or go to the emergency room if experiencing a temperature exceeding 100.4?F, abdominal pain, nausea/vomiting, or bleeding. Additionally, the patient was instructed to abstain from vaginal intercourse and bathtub use. The patient confirmed understanding of these instructions. Discharge Instructions: The patient was instructed to schedule a follow-up appointment in 2 weeks for further evaluation and management. Please note that this note was generated using a voice recognition program, and errors may have occurred during civil preparedness coordinator. [id number] of cervix including upper vagina with biopsy and ECC Procedure code (CPT) selection complete Assessment & Plan Assessment & Plan (1) ASCUS with positive high risk HPV cervical: Code(s): R87.610 - Atypical squamous cells of undetermined significance on cytologic smear of cervix (ASC-US); R87.810 - Cervical high risk human papillomavirus (HPV) DNA test positive Category: Medical Plan: Discussed with the patient the result of her abnormal pap, its significance, risk of progression, persistence, and regression. the false positive/negative rate of a Pap smear as a screening test in detecting cervical cancer and the indication for a diagnostic test -colposcopy, biopsy, endocervical curettage. The patient verbalized understanding and agreed with the plan, all questions answered. Colpo/biopsy/ECC done, see procedure note Orders: Orders AMB Colposcopy Today R87.610 - Atypical squamous cells of undetermined significance on cytologic smear of cervix (ASC-US), R87.810 - Cervical high risk human papillomavirus (HPV) DNA test positive Coding Level of Care Code Procedure Only Diagnoses ASCUS with positive high risk HPV cervical R87.610; R87.810 CPT Codes Colposcopy - CPT: 83726-[id number] of cervix including upper vagina with biopsy and ECC ([id number])
[2024-03-04 09:01] VITALS: BMI 33.3
== END 2024-03-04 09:50 | disposition home or self-care (01) ==
PROVIDERS: Visit Provider Obstetrics & Gynecology
DX: R87.610 Atypical squamous cells of undetermined significance on cytologic smear of cervix (ASC-US) (principal); R87.810 Cervical high risk human papillomavirus (HPV) DNA test positive
CPT/HCPCS: 57454

== ENCOUNTER 2024-03-04 08:40 | Outpatient (REF) | payer OTHER, SELFPAY | END 2024-03-04 08:41 | disposition home or self-care (01) | LOC: HO.LNP 08:40 | PROVIDERS: Visit Provider Obstetrics & Gynecology | DX: R87.610 Atypical squamous cells of undetermined significance on cytologic smear of cervix (ASC-US) (principal); R87.810 Cervical high risk human papillomavirus (HPV) DNA test positive | CPT/HCPCS: 57454; 88305 ==

== ENCOUNTER → 2024-03-19 09:19 | Outpatient (REF) | payer OTHER, SELFPAY ==
--- NOTE | 2024-03-19 09:22 | HM_ITS ---
Conclusion: 1. Patient was monitored for total period of 2 days 22 hours 2. Baseline was normal sinus rhythm with average heart of 85 beats per minute 3. Rare PACs noted 4. No significant pauses noted 5. Patient marked 2 with 1 symptom of dizziness and 1 symptom of shortness of breath correlating with sinus rhythm MTDD
== END ==
LOC: HO.CARD 09:19
DX: R00.2 Palpitations (principal)
CPT/HCPCS: 93242

== ENCOUNTER → 2024-03-19 09:22 | Outpatient (BNV) | payer OTHER, SELFPAY | PROVIDERS: Visit Provider Internal Medicine Cardiovascular Disease | DX: R00.2 Palpitations (principal) | CPT/HCPCS: 93244 ==

== ENCOUNTER 2024-03-29 10:24 | Outpatient (AMB) | payer OTHER, SELFPAY ==
--- NOTE | 2024-03-29 10:24 | A.OFFVIS_ITS ---
Intake Visit Reasons: Colpo results Intake Note: [phone] Allergies Lisinopril-hydrochlorothiazide Allergy (Mild, Uncoded 02/16/24 09:33) Itching HPI Comments Details: The patient is scheduled a telehealth visit post colpo for follow-up. The patient is doing well with no complaints. The pathology showed the following: A. Endocervix, curettage: Superficial fragments of benign endocervical and squamous epithelium; few fragments of benign endometrial tissue; no atypia identified. B. Cervix, 1 o'clock, biopsy: Inflamed endocervical and squamous mucosa with reactive changes. C. Cervix, 6 o'clock, biopsy: Mildly inflamed endocervical and squamous mucosa with reactive changes. D. Cervix, 11 o'clock, biopsy: Inflamed endocervical and squamous mucosa with reactive changes. E. Cervix, 12 o'clock, biopsy: Inflamed squamous mucosa with reactive changes [facility] Medical History Bilateral impacted cerumen Encounter to establish care Fibroids Obesity (BMI 35.0-39.9 without comorbidity) Hypertension Surgical History No pertinent past surgical history Family History Maternal Grandmother Cancer Mother High blood pressure Father No problems noted. Other Mental health problem Substance abuse Social History Housing: Condominium Alcohol intake: current Alcohol intake frequency: holidays/special occasions only Patient Tobacco Use Status: Never used Tobacco e-Cigarette/Vaping Use: Never Used Second Hand Smoke Exposure: Yes Substance Use Type: Marijuana service: No Current occupational status: disabled Sexual orientation: Straight/Heterosexual Cognitive needs: No Hearing needs: No Vision needs: No Female Reproductive History Menstrual Age of Menarche: 11 Review of Systems Const All systems reviewed & are unremarkable except as noted in HPI and below Reports as per HPI and Reports no additional complaints GI Reports no additional complaints Reports no additional complaints Telehealth Telehealth Telehealth [facility]: [facility] Location of provider rendering services: practice address Location of patient: address on file Patient Identification confirmed using: Name, : Yes Telehealth method: video Patient verbally consented to treatment: Yes Patient verbally consented to billing insurance company: Yes Patient informed of any privacy concerns related to visit: Yes Assessment & Plan Assessment & Plan (1) ASCUS with positive high risk HPV cervical: Code(s): R87.610 - Atypical squamous cells of undetermined significance on cytologic smear of cervix (ASC-US); R87.810 - Cervical high risk human papillomavirus (HPV) DNA test positive Category: Medical Plan: Discussed with the patient the pathology results of the colposcopy biopsies & endocervical curettage ( negative). Discussed with the patient the sensitivity specificity, positive and negative predictive value in detecting cervical cancer in addition discussed the regression, persistence and progression rates. Recommended co-testing in 12 months, if cytology and or HPV are abnormal will proceed was colposcopy biopsy and endocervical curettage, if lesions gets worse or stays persistent for 2 years will proceed with loop electric excision procedure. Instructions given to the patient to schedule a co test appointment in 1 year. All questions answered the patient verbalized understanding. I spent a total of 20 minutes reviewing the chart, talking to the patient via video and documenting in the medical record. Coding Level of Care Code Tele Est Pt Level 3 (14281) Diagnoses ASCUS with positive high risk HPV cervical R87.610; R87.810
== END 2024-03-29 11:11 | disposition home or self-care (01) ==
LOC: HO.HWS 10:24
PROVIDERS: Visit Provider Obstetrics & Gynecology
DX: R87.610 Atypical squamous cells of undetermined significance on cytologic smear of cervix (ASC-US) (principal); R87.810 Cervical high risk human papillomavirus (HPV) DNA test positive
CPT/HCPCS: 99213

== ENCOUNTER → 2024-03-29 10:24 | Outpatient (BNVA) | payer OTHER, SELFPAY | PROVIDERS: Visit Provider Obstetrics & Gynecology ==

== ENCOUNTER 2024-09-03 09:16 | Emergency (ER) | payer OTHER, SELFPAY ==
[2024-09-03 09:43] VITALS: BP 167/77; PULSE 90; RESP 16; TEMP 37.1; O2SAT 98; BMI 34.0
--- NOTE | 2024-09-03 09:44 | ED.SKABFB ---
HPI - Skin/Abscess/Foreign Bdy General Chief complaint: Allergic Reaction Stated complaint: Numbness/ tingling R arm, rash Time Seen by Provider: 09/03/24 11:19 Source: patient Mode of arrival: ambulatory Limitations: no limitations History of Present Illness ED Provider: Dr. Ramiro Maloney HPI narrative: 44-year-old female with a history of hypertension, hyperlipidemia, GERD, depression, anxiety who presents emergency department for evaluation of pruritic rash x1 week and right arm pain with tingling this and weakness times months. Patient states that the rash is located diffusely throughout her body, it involves her hands in his between her fingers as well. Patient states she has tried [id number] allergy medications with no relief of her symptoms. The patient is also complaining of intermittent right arm weakness and numbness. She is also complaining of right-sided neck pain. She states that the sensation in her arm will last for minutes then resolve. Patient denies any injury. She denied fever, chills, chest pain, shortness of breath, cough. Related Data Previous Rx's ?Medication ?Instructions ?Recorded blood pressure monitor #1 ea 08/15/21 albuterol sulfate 90 mcg/actuation 2 puff inhalation Q6H PRN 01/11/22 aerosol inhaler shortness of breath or wheezing #6.7 grams hydroxyzine HCl 25 mg tablet 25 mg PO TID PRN anxiety #30 tabs 11/21/22 metronidazole 0.75 % (37.5 mg/5 1 appful vaginal BEDTIME 5 days 01/28/24 gram) vaginal gel #70 grams amlodipine 5 mg tablet 5 mg PO DAILY #90 tabs 02/16/24 cholecalciferol (vitamin D3) 25 25 mcg PO DAILY #30 caps 05/24/24 mcg (1,000 unit) capsule acetaminophen 500 mg tablet 1,000 mg (2 x 500 mg) PO Q6H PRN 09/03/24 (Tylenol Extra Strength) fever or pain #20 tabs diphenhydramine HCl 50 mg tablet 50 mg PO QID PRN itchiness, rash 09/03/24 (Benadryl Allergy) #20 tabs ibuprofen 400 mg tablet 400 mg PO TID PRN fever or pain 09/03/24 #30 tabs permethrin 5 % topical cream 1 appl topical ONCE 2 doses #60 09/03/24 (Elimite) grams prednisone 20 mg tablet 60 mg (3 x 20 mg) PO DAILY 5 days 09/03/24 #15 tabs Allergies Allergy/AdvReac Type Severity Reaction Status Date / Time Lisinopril-hydrochlorothiazide Allergy Mild Itching Uncoded 09/03/24 09:46 Review of Systems Review of Systems: Yes all other systems are reviewed and are negative [facility] Past Medical History [facility] Narrative: Social history: She denies tobacco, alcohol and drug use. Medical History Bilateral impacted cerumen Encounter to establish care Fibroids Obesity (BMI 35.0-39.9 without comorbidity) Hypertension Surgical History No pertinent past surgical history Family History Family History Maternal Grandmother Cancer Mother High blood pressure Father No problems noted. Other Mental health problem Substance abuse Social History Social History Housing: Condominium Alcohol intake: current Alcohol intake frequency: holidays/special occasions only Patient Tobacco Use Status: Never used Tobacco e-Cigarette/Vaping Use: Never Used Second Hand Smoke Exposure: Yes Substance Use Type: Marijuana Advance Directives: No Advance Directives Information Provided: No Do you have a plan to hurt others: No Plan service: No Current occupational status: disabled Sexual orientation: Straight/Heterosexual Cognitive needs: No Hearing needs: No Vision needs: No Physical Exam Vital Signs: Vital Signs: Last Vital Signs Temp 98.8 F 09/03/24 09:43 Pulse 90 09/03/24 09:43 Resp 16 09/03/24 09:43 BP 167/77 H 09/03/24 09:43 Pulse Ox 98 09/03/24 09:43 O2 Del Method Room Air 09/03/24 09:43 BMI result Body Mass Index 34.0 Vital signs revealed an elevated blood pressure of 167/77 otherwise unremarkable Exam: General: Awake, alert in no distress Head: Normocephalic, atraumatic EENT: PERRL, Lids normal, sclera normal, conjunctiva normal, nose normal , ears normal, throat without erythema or exudates Neck: Supple, no adenopathy Extremities: no deformities, moves all extremities symmetrically Skin: Patient has a small red bumps/blisters found in lines on the patient's hands, arms and legs. She also has it on her abdomen. There are several erythematous areas which could be urticarial mainly on her legs but not on other parts of her body Psych: Pleasant, cooperative Course Course Course Narrative: 09/03/24 0944 KATHY Gonzalez This is a Rapid Medical Examination (RME) performed by Diane Lassiter PA-C in triage. Full HPI, ROS, assessment and treatment plan per primary provider in the Main ED. Hx: 44 yo F here w/ diffuse body rash x1 week. reports rash is intermittent, feels like a burning sensation. recently moved into new house x1 mo ago. no new meds/ abx. no known tick or insect bites. no new soaps/lotions/detergents. using OTC allergy meds without relief. also reports R arm numbness/tingling assoc w/ rash. no assoc SOB dyspnea. Plan: screening labs, viral swabs Medical Decision Making Medical Decision Making [facility] Narrative: 44-year-old female with a history of hypertension, hyperlipidemia, GERD, depression, anxiety who presents emergency department for evaluation of pruritic rash x1 week and right arm pain with tingling this and weakness times months. Patient states that the rash is located diffusely throughout her body, it involves her hands in his between her fingers as well. Patient states she has tried [id number] allergy medications with no relief of her symptoms. The patient is also complaining of intermittent right arm weakness and numbness. She is also complaining of right-sided neck pain. She states that the sensation in her arm will last for minutes then resolve. Patient denies any injury. She denied fever, chills, chest pain, shortness of breath, cough. Vital signs revealed an elevated blood pressure-this is consistent with her primary hypertension. Patient does small red bump/blisters in lines as well as some areas that look like urticaria. Exam was otherwise unremarkable Differential diagnosis: ?Includes but is not limited to: Rash: Allergic reaction, urticarial rash, scabies Right arm symptoms: Musculoskeletal pain, cervical radiculopathy Course: 12:03 My interpretation patient's laboratory evaluation is as follows: CBC was normal. CMP was normal. COVID-19, influenza and RSV tests were negative The patient's rash is most likely consistent with scabies and I did discuss this with the patient. She does have some urticarial appearing on her legs, therefore I am going to treat her for allergic reaction as well. Patient was given a prescription for prednisone 60 mg once a day for 5 days and Benadryl 50 mg 4 times a day as needed for itchiness. She was given a prescription for Elimite 5% cream 60 g to apply on her body and wash off in 8 hours and repeat in 1 week. She was advised to wash all of her clothes that she has worn recently in her bed linens in hot soapy water. The patient's right arm symptoms are most likely secondary to musculoskeletal pain. She was given a prescription for Tylenol and ibuprofen. I told her however that you should not take the ibuprofen while she is taking prednisone. She was given printed and verbal instructions and discharged home. Admission/Observation Consideration of admission/observation: Escalation of care including admission/observation considered (Yes) Lab Data MDM Lab Attestation statement: I reviewed the patient's lab results. 09/03/24 10:05 09/03/24 10:05 Labs: Lab Results 09/03/24 09/03/24 Range/Units 09:58 10:05 WBC 7.7 (4.8-10.8) X10*3/uL RBC 4.69 (4.20-5.50) X10*6/uL Hgb 13.0 (12.0-16.0) g/dl Hct 40.9 (37.0-47.0) % MCV 87.2 (80.0-98.0) fL MCH 27.7 (27.0-33.0) pg MCHC 31.8 (31.0-35.0) g/dl RDW 14.6 (11.0-16.0) % Plt Count 267 (160-400) X10*3/uL MPV 12.2 (9.4-12.3) fL Immature Gran % (Auto) 0.1 (0.0-0.4) % Neut % (Auto) 48.8 (45-73) % Lymph % (Auto) 37.5 (20-40) % Sargent % (Auto) 7.5 (2-11) % Eos % (Auto) 5.2 H (0-4) % Baso % (Auto) 0.9 (0-2) % Lymph # (Auto) 2.9 (1.2-4.9) X10*3/uL Sargent # (Auto) 0.6 (0.1-1.2) X10*3/uL Eos # (Auto) 0.4 (0.0-0.4) X10*3/uL Baso # (Auto) 0.1 (0.0-0.2) X10*3/uL Abs Immat Gran (auto) 0.01 (0.00-0.03) X10*3/uL Absolute Neuts (auto) 3.8 (2.0-8.3) x10*3/uL Absolute Nucleated RBC 0.000 (0.0-0.012) X10*3/uL Nucleated RBC % (auto) 0.0 (0.0-0.2) /100WBC Sodium 139 (135-145) mmol/L Potassium 3.6 (3.3-5.1) mmol/L Chloride 107 (96-108) mmol/L Carbon Dioxide 25 (22-29) mmol/L Anion Gap 11 L (12-20) BUN 14 (9-16) mg/dL Creatinine 1.04 (0.5-1.4) mg/dL Estim Creat Clear Calc 66.1 Estimated GFR 57 Random Glucose 94 (60-115) mg/dL Calcium 9.0 D (8.4-10.2) mg/dL Magnesium 1.8 (1.6-2.6) mg/dL Total Bilirubin 0.2 (0.0-1.0) mg/dL AST 20 (5-31) U/L ALT 18 (0-31) U/L Alkaline Phosphatase 55 (39-117) U/L Total Protein 7.3 (6.5-8.0) g/dL Albumin 4.3 (3.5-5.0) g/dL Influenza Type A (PCR) NEGATIVE (Negative) Influenza Type B (PCR) NEGATIVE (Negative) RSV RNA Qual (PCR) NEGATIVE (Negative) SARS-CoV-2 RNA (RT-PCR) NEGATIVE (Negative) Prescription Management I considered prescription management with: Pain Medication (Ibuprofen and Tylenol) and Other (Anti scabies cream: Elimite 5% cream) Chronic Conditions Patient?s care impacted by: Hypertension Discharge Plan Discharge Clinical Impression: Scabies, Pain of right arm Patient Disposition: Home, Self-Care Additional Instructions: You had a complete blood count and comprehensive metabolic panel. These tests were normal. You had a COVID-19, influenza and RSV tests and these were negative which is reassuring. Your rash may be consistent with scabies as we discussed. Also possible that this may be an allergic reaction so I am going to treat you for both. Apply Elimite (permethrin) 5% cream to your entire body but not to your hair. Leave this cream on 0408 hours and then wash it off. I want you to repeat this treatment in 1 week. You should wash all of your clothes that you have worn recently and all of your bed sheets and linens in hot soapy water in your washing machine. For possible allergic reaction I am treating you with the following medicines: Take prednisone 20 mg pills, 3 pills once a day for 5 days. While you ?are taking prednisone, do not take any NSAIDs (Motrin, Advil, ibuprofen, Aleve, naproxen). Take Benadryl (diphenhydramine) 25 mg pills, 2 pills 4 times a day for the next 2-3 days to help reduce the swelling and itchiness in the area of your rash. This medication will make you sleepy. Do not drive or work while taking this medication. At this time I do not have a clear cause for your arm pain. I want you to take the following medications however do not take ibuprofen while your taking prednisone. Take ibuprofen 400 mg pills, 1 pills every 6 hours as needed for pain or fever. Take Tylenol (acetaminophen) 500 mg pills, 2 pills every 6 hours as needed for pain or fever. Prescriptions: New permethrin [Elimite] 5 % cream 1 appl topical ONCE Qty: 60 0RF Rx Instructions: apply second treatment 7 days after first treatment Benadryl Allergy 50 mg tablet 50 mg PO QID PRN (Reason: itchiness, rash) Qty: 20 0RF acetaminophen [Tylenol Extra Strength] 500 mg tablet 1,000 mg PO Q6H PRN (Reason: fever or pain) Qty: 20 0RF ibuprofen 400 mg tablet 400 mg PO TID PRN (Reason: fever or pain) Qty: 30 0RF prednisone 20 mg tablet 60 mg PO DAILY 5 Days Qty: 15 0RF No Action metronidazole 0.75 % (37.5mg/5 gram) gel 1 appful vaginal BEDTIME 5 Days Qty: 70 0RF cholecalciferol (vitamin D3) 25 mcg (1,000 unit) capsule 25 mcg PO DAILY Qty: 30 2RF (DME) blood pressure monitor Kit See Rx Instructions .Route Qty: 1 0RF Rx Instructions: As directed albuterol sulfate 90 mcg/actuation HFA aerosol inhaler 2 puff inhalation Q6H PRN (Reason: shortness of breath or wheezing) Qty: 6.7 0RF hydroxyzine HCl 25 mg tablet 25 mg PO TID PRN (Reason: anxiety) Qty: 30 0RF amlodipine 5 mg tablet 5 mg PO DAILY Qty: 90 2RF Print Language: Thai
[2024-09-03 10:50] LABS: MANUAL DIFF FLAG NO
[2024-09-03 10:59] LABS: Basophils Absolute Auto 0.1 X10*3/uL (0.0-0.2); Basophils Percent Auto 0.9 % (0-2); Eosinophils Absolute Auto 0.4 X10*3/uL (0.0-0.4); Eosinophils Percent Auto 5.2 % (0-4); Hematocrit 40.9 % (37.0-47.0); Imm Gran Abs Auto 0.01 X10*3/uL (0.00-0.03); Imm Gran Pct Auto 0.1 % (0.0-0.4); Lymphocytes Absolute Auto 2.9 X10*3/uL (1.2-4.9); Lymphocytes Percent Auto 37.5 % (20-40); Mean Corpuscular HGB Conc 31.8 g/dl (31.0-35.0); Mean Corpuscular Hemoglobin 27.7 pg (27.0-33.0); Mean Corpuscular Volume 87.2 fL (80.0-98.0); Mean Platelet Volume 12.2 fL (9.4-12.3); Monocytes Absolute Auto 0.6 X10*3/uL (0.1-1.2); Monocytes Percent Auto 7.5 % (2-11); Neutrophils Absolute Auto 3.8 x10*3/uL (2.0-8.3); Neutrophils Percent Auto 48.8 % (45-73); Platelet Count 267 X10*3/uL (160-400); Red Blood Count 4.69 X10*6/uL (4.20-5.50); Red Cell Distribution Width 14.6 % (11.0-16.0); White Blood Count 7.7 X10*3/uL (4.8-10.8)
[2024-09-03 11:06] LABS: Alanine Aminotransferase 18 U/L (0-31); Albumin Level 4.3 g/dL (3.5-5.0); Alkaline Phosphatase 55 U/L (39-117); Anion Gap 11 (12-20); Aspartate Amino Transferase 20 U/L (5-31); Bilirubin Total 0.2 mg/dL (0.0-1.0); Blood Urea Nitrogen 14 mg/dL (9-16); Carbon Dioxide 25 mmol/L (22-29); Chloride 107 mmol/L (96-108); Creatinine Clr Calc Pharmacy 66.1; Estimated Glomerular Filt Rate 57; Glucose Random 94 mg/dL (60-115); Magnesium 1.8 mg/dL (1.6-2.6); Potassium 3.6 mmol/L (3.3-5.1); Sodium 139 mmol/L (135-145); Total Protein 7.3 g/dL (6.5-8.0)
[2024-09-03 11:31] LABS: Influenza A PCR NEGATIVE (Negative); Influenza B PCR NEGATIVE (Negative); Resp Syncy Virus RNA Qual PCR NEGATIVE (Negative); SARS COV2 PCR INHOUSE NEGATIVE (Negative)
[2024-09-03 12:13] VITALS: BP 167/77; PULSE 90; RESP 16; TEMP 37.1; O2SAT 98
== END 2024-09-03 12:14 | disposition home or self-care (01) ==
PROVIDERS: Physician Assistant Medical; Emergency Provider Emergency Medicine Emergency Medical Services
DX: B86 Scabies (principal); R21 Rash and other nonspecific skin eruption
CPT/HCPCS: 0241U; 80053; 83735; 85025; 99282; 99283

== ENCOUNTER 2024-11-23 08:50 | Outpatient (AMB) | payer MEDICARE, SELFPAY ==
[2024-11-23 09:04] VITALS: BP 126/84; PULSE 97; O2SAT 98; BMI 37.0
--- NOTE | 2024-11-23 09:04 | A.OFFPC_ITS ---
Vital Signs 11/23/24 09:04 Height 5 ft 1 in Weight 196 lb BMI 37.0 BP 126/84 Blood Pressure Location Lt brachial Position Sitting Pulse 97 Pulse Source Pulse Oximeter Pulse Oximetry (%) 98 Oxygen Delivery Method Room Air Intake Visit Reasons: PE Mac Artist Required: No Accompanied by: Self / Same As Patient Allergies Lisinopril-hydrochlorothiazide Allergy (Mild, Uncoded 11/23/24 09:13) Itching Medication List - Last Reconciled 11/23/24 by Mary Marroquin PA-C acetaminophen (Tylenol Extra Strength) 1,000 mg (2 x 500 mg) PO Q6H PRN albuterol sulfate 90 mcg/actuation 2 puffs inhalation Q6H PRN amlodipine 5 mg PO DAILY blood pressure monitor As directed cholecalciferol (vitamin D3) 25 mcg PO DAILY diphenhydramine HCl (Benadryl Allergy) 50 mg PO QID PRN hydroxyzine HCl 25 mg PO TID PRN prednisone 60 mg (3 x 20 mg) PO DAILY 5 days Tobacco use date assessed: 02/16/24 Dental Screening Dental Screen Date: 11/20/23 HPI PE HPI Details 44-year-old female with past medical his tory of hypertension, GERD, hyperlipidemia, chronic kidney disease stage 3, stress incontinence and gener alized anxiety disorder last seen 01/2024 coming in for annual exam. In review of the notes, patient had annual well-woman exam 03/2024. Presenting with multiple health concerns including overactive bladder, hypertension, palpitations, GERD, and sleep disturbances. Patient mentions worsening urinary incontinence since last visit initially as stress incontinence now progressing to overactive bladder symptoms. She has not been seen by Urology and has completed pelvic floor exercises. Occasional palpitations have decreased with reduced coffee intake. A previous Holter monitor was normal. Hist ory of GERD with acid reflux and occasional vomiting. A GERD test a year and a half ago showed no abnormalities. Reports difficulty staying asleep and waking up short of breath. A sleep study is planned. Reports dyspnea on exertion, prescribed an inhaler, and a pulmonary function test is planned. Discussed stress test which was declined. Rash under breasts and on legs diagnosed as fungal infection, prescribed topical cream. Mammogram: 01/2022 missed appt in 12/2023 Eye exam: referral placed today Pap smear: 03/2024 Colonoscopy: Cologuard box 05/2024- repeat 3 years [facility] Medical History Bilateral impacted cerumen Encounter to establish care Fibroids Obesity (BMI 35.0-39.9 without comorbidity) Hypertension Surgical History No pertinent past surgical history Family History Maternal Grandmother Cancer Mother High blood pressure Father No problems noted. Other Mental health problem Substance abuse Social History Housing: Condominium Alcohol intake: current Alcohol intake frequency: holidays/special occasions only Patient Tobacco Use Status: Never used Tobacco e-Cigarette/Vaping Use: Never Used Second Hand Smoke Exposure: Yes Substance Use Type: Marijuana service: No Current occupational status: disabled Sexual orientation: Straight/Heterosexual Cognitive needs: No Hearing needs: No Vision needs: No Female Reproductive History Menstrual Age of Menarche: 11 Questionnaire PHQ-9 Over the last 2 weeks, how often have you been bothered by any of the following problems? 1. Little interest or pleasure in doing things: more than half the days 2. Feeling down, depressed, or hopeless: not at all 3. Trouble falling or staying asleep, or sleeping too much: several days 4. Feeling tired or having little energy: several days 5. Poor appetite or overeating: not at all 6. Feeling bad about yourself - or that you are a failure or have let yourself or your family down: not at all 7. Trouble concentrating on things, such as reading the newspaper or watching television: not at all 8. Moving or speaking so slowly that other people could have noticed. Or the opposite - being so fidgety or restless that you have been moving around a lot more than usual: not at all 9. Thoughts that you would be better off or of hurting yourself in some way: not at all Total score: 4 Depression Screening Interpretation: Positive Depression Screening Follow-up: Existing condition and Declines treatment Depression Screening Done: Yes Source: Developed by Orlin Fodret B.W. Zhao, Donald Barraza and colleagues, with an educational renato from [employer]. Thrive Questionnaire Date Thrive assessed: 11/16/24 I am a: Patient What is your living situation today?: I have a steady place to live Within the past 12 months, did the food you bought not last and you didn't have the money to get more?: Often true Within the past 12 months, did you worry whether your food would run out before you got money to buy more?: Often true Do you have trouble paying for medicines?: No Do you have trouble getting transportation to medical appointments?: No Do you have trouble paying your heating and electricity bill?: Yes Do you have trouble taking care of your child, family member or friend?: No Do you have trouble with day-to-day activities such as bathing, preparing meals, shopping, managing finances, etc.?: Yes Are you currently unemployed and looking for a job?: No Are you interested in more education?: No Please select the resources that you would like help with: Utilities Currently or been in a relationship where the following occur: No concerns reported THRIVE Score: 3 AUDIT C Alcohol Use Questionnaire (AUDIT-C) 1. How often do you have a drink containing alcohol?: Never Total Score: 0 ADAIR-7 AMB Questionnaire ADAIR-7 Date ADAIR - 7 assessed: 11/20/23 Feeling nervous, anxious, or on edge: 1 = Several days Not being able to stop or control worryin = Not at all Worrying too much about different things: 1 = Several days Trouble relaxin = Several days Being so restless that it is hard to sit still: 0 = Not at all Becoming easily annoyed or irritable: 1 = Several days Feeling afraid as if something awful might happen: 0 = Not at all Total ADAIR-7 score (0-4 normal; 5-9 mild; 10-14 moderate; 15-21 severe): 4 Source: Developed by Drs. Willy Young, Ruth Churchill, Donald Barraza and colleagues, with an educational renato from [employer]. ADAIR-7 Assessment Billing ADAIR-7 Assessment Tool: ADAIR-7 Assessment 07949 Review of Systems Const Denies body aches, Denies fatigue, Denies fever(s), Denies frequent falls, Denies headache(s) and Denies weakness Eyes Reports no additional complaints and Denies change in vision ENT Reports dysphagia (occasionally ), Denies dizziness, Denies facial pain, Denies headache(s), Denies nasal congestion and Denies odynophagia Card Denies chest pain, Denies syncope, Denies irregular heart rhythm, Denies leg edema, Denies lightheadedness, Denies dyspnea and Reports dyspnea on exertion Resp Denies cough, Denies dyspnea and Reports dyspnea on exertion GI Denies abdominal pain, Denies constipation, Reports dysphagia (occasionally ), Reports dyspepsia, Reports heartburn, Denies diarrhea, Denies nausea, Denies odynophagia and Denies vomiting Reports as per HPI, Denies dysuria, Denies urinary hesitancy and Denies urinary urgency Musc Denies back pain and Denies myalgias Skin/Breast Reports system reviewed and no additional complaints, except as documented Neuro Denies dizziness, Denies syncope, Denies frequent falls, Denies headache(s) and Denies weakness Psych Reports no additional complaints Endo Denies fatigue Physical exam (Primary Care) Vital Signs: Oxygen Delivery Method Room Air 11/23/24 09:04 BMI result Body Mass Index 37.0 Tobacco/Smoking Status: Tobacco use Status Tobacco use date assessed 02/16/24 03/29/24 10:58 Patient Tobacco Use Status Never used Tobacco 03/29/24 10:58 e-Cigarette/Vaping Use Never Used 03/29/24 10:58 Depression Screening Interpretation: Positive Depression Screening Follow-up: Existing condition and Declines treatment Thrive Assessment: Date of Thrive Assessment Date Thrive assessed 11/16/24 11/16/24 12:46 Currently or been in a relationship where the following occur: No concerns reported Const General: cooperative, healthy appearing, comfortable and no acute distress Orientation/consciousness: patient oriented x3 HENMT Head: Yes normocephalic Ears: hearing grossly normal bilaterally, external ears normal, TM's normal bilaterally and Abnormal EAC present excessive cerumen bilateral General nose exam: Normal external nose present Face and sinus: Yes normal facial exam and Yes sinuses nontender Mouth: Normal oral and palatal mucosa present and tongue normal Throat: Yes posterior oropharynx normal Eyes General: appearance normal, both eyes and all related structures Conjunctivae: conjunctivae normal Pupils: Equal, round and reactive pupils present EOM: EOMs intact bilaterally and No Nystagmus present Neck Neck: Yes normal visual inspection, Yes full ROM and Yes no lymphadenopathy Chest Other: Fungal rash under bilateral breasts Chest palpation & inspection: normal inspection of the chest Resp Effort & Inspection: normal respiratory effort Auscultation: clear to auscultation bilaterally, no crackles, no rales, no rhonchi, no wheezes and breath sounds present Cardio Rate: regular rate Rhythm: regular rhythm Peripheral pulses: radial pulses present and dorsalis pedis present GI Inspection: Yes normal to inspection and No Abdominal wall edema Palpation (GI): Soft to palpation, not firm and nontender Auscultation: normal bowel sounds Rectal Exam - Female: deferred General: Yes no CVA tenderness Back/Spine/Pelvis Back: no CVA tenderness Skin General skin exam: no rashes or lesions noted Neuro General: patient oriented x3 Cranial nerves: Yes Equal, round and reactive pupils present, Yes Midline tongue present, Yes Ability to bilaterally elevate shoulders present and No Nystagmus present Gait exam (Neuro): Normal gait present Extrem General: Yes normal to inspection, Yes full ROM, No no pedal edema and No edema Psych Speech and movement: Normal speech and movement present Affect: normal affect Insight: Good insight present (Psych) Judgement: Good judgement present (Psych) Office Procedures Cerumen Removal From which ear canal was the cerumen removed: bilateral Removal: cerumen loop/spoon Notes: no complications and ear canal clear 12913-Ois Wax Removal by Spoon/Curette Coding Level of Care Code Est Pt Prev Care 40-64y(03955) Diagnoses Annual physical exam Z00.00 Generalized anxiety disorder F41.1 Hypertension I10 Palpitations R00.2 Obesity (BMI 30-39.9) E66.9 Hyperlipidemia E78.5 GERD (gastroesophageal reflux disease) K21.9 CKD (chronic kidney disease) stage 3, GFR 30-59 ml/min N18.30 Cervical cancer screening Z12.4 Shortness of breath R06.02 Hypersomnia G47.10 Incontinence R32 Fungal rash of trunk B36.9 Excessive cerumen in ear canal H61.20 CPT Codes Office Procedure - CPT: 30104-Vdu Wax Removal by Spoon/Curette ([id number]) Additional Codes ADAIR-7 Assessment Billing - ADAIR-7 Assessment Tool: ADAIR-7 Assessment 90393 ([id number]) Assessment & Plan Assessment & Plan (1) Annual physical exam: Code(s): Z00.00 - Encounter for general adult medical examination without abnormal findings Category: Medical Plan: Patient is due for mammogram and order has been placed today. She is up-to-date on all other routine screenings and vaccinations for her age. I did ordered for updated blood work and plan to follow up in 3 months or sooner as needed. (2) Generalized anxiety disorder: Code(s): F41.1 - Generalized anxiety disorder Category: Medical Plan: Endorses symptoms of anxiety regarding her health and is declining medical management or counseling at this time. (3) Hypertension: Code(s): I10 - Essential (primary) hypertension Category: Medical Plan: Continue on current blood pressure medication. Avoid salt intake and encourage healthy diet and regular exercise. The patient continues to take antihypertensive medication daily and requires refills. Blood pressure monitoring and lifestyle modifications, including weight loss and exercise, are recommended. (4) Palpitations: Code(s): R00.2 - Palpitations Category: Medical Plan: The patient reports decreased palpitations after reducing coffee intake. A previous Holter monitor was normal, and no further immediate intervention is planned. (5) Obesity (BMI 30-39.9): Comment: Patient shared she has lost 40-45 lb through healthy eating and increased walking! Code(s): E66.9 - Obesity, unspecified Category: Medical Plan: Healthy diet and regular exercise is encouraged. noted 20 lb weight gain since last visit. Discussed dietary and lifestyle modification. (6) Hyperlipidemia: Code(s): E78.5 - Hyperlipidemia, unspecified Category: Medical Plan: Avoid foods that are high in cholesterol such as red meat, fried foods, eggs and baked goods. Triglyceride goal of less than 150 and LDL goal of less than 130. Ordered for updated blood work. (7) GERD (gastroesophageal reflux disease): Code(s): K21.9 - Gastro-esophageal reflux disease without esophagitis Category: Medical Plan: Avoid trigger foods such as citrus, tomato products, soda, caffeine, spicy foods and other foods that may be irritating to your stomach. Avoid laying flat 3-4 hours after eating and elevate the head of the bed 30 degrees to prevent acid from moving into the esophagus. Plan to start on Omeprazole and [place] [facility] [place]. (8) CKD (chronic kidney disease) stage 3, GFR 30-59 ml/min: Code(s): N18.30 - Chronic kidney disease, stage 3 unspecified Category: Medical Plan: Continue to avoid kidney irritants such as salt and NSAIDs and stay well hydrated. (9) Cervical cancer screening: Comment: 01/26/2024 Pap is ASCUS with positive HPV, refer for colpo...Pt is scheduled for colpo in february. Code(s): Z12.4 - Encounter for screening for malignant neoplasm of cervix Category: Medical Plan: Continue to follow with child and family services specialist and up to date on pap smears. (10) Shortness of breath: Code(s): R06.02 - Shortness of breath Category: Medical Plan: The patient is prescribed an albuterol inhaler and a pulmonary function test is planned to confirm the diagnosis of asthma. Plan for Xr as well and consider stress test which was declined today. (11) Hypersomnia: Code(s): G47.10 - Hypersomnia, unspecified Category: Medical Plan: A sleep study is ordered to evaluate for sleep apnea. The patient is advised to monitor sleep patterns and report any significant changes. (12) Incontinence: Code(s): R32 - Unspecified urinary incontinence Category: Medical Plan: The patient will try a new medication, oxybutynin, to manage overactive bladder symptoms. A referral to a urologist has been made for further evaluation. (13) Fungal rash of trunk: Code(s): B36.9 - Superficial mycosis, unspecified Category: Medical Plan: The patient is prescribed a topical antifungal cream for the rash under the breasts and on the legs. Follow-up is advised if symptoms do not improve. (14) Excessive cerumen in ear canal: Code(s): H61.20 - Impacted cerumen, unspecified ear Category: Medical Plan: On exam patient have excessive cerumen in bilateral ear canals which was successfully removed using lighted curette. Patient tolerated the procedure well and TM was visualized as intact with well aerated middle ear spaces without retraction or perforation. Plan to follow up as needed for this concern Plan During the visit, we discussed the management of the patient's overactive bladder with a new medication, axibutanin, and the need for a urology referral. We reviewed the importance of lifestyle modifications for hypertension management, including weight loss and exercise. The patient was advised on dietary changes to manage GERD and the use of omeprazole. We also discussed the need for a sleep study to evaluate sleep disturbances and the potential for sleep apnea. The patient was informed about the use of an albuterol inhaler and the planned pulmonary function test to assess for asthma. A topical antifungal cream was prescribed for the skin rash, and follow-up was advised if symptoms persist. This note was constructed using voice recognition software. While every effort has been made to ensure accuracy and airplane flight attendant, still areas may have been included sometimes these areas may affect the content or meeting of the given symptoms. Total time spent caring for the patient today was 30 minutes. This includes time spent before the visit reviewing the chart, time spent during the visit, and time spent after the visit and documentation. Patient was informed and verbally consented to the use of an ambient scribe for clinic note documentation during this visit. Orders: Orders MM tomosynthesis screening BI Today Z12.31 - Encounter for screening mammogram for malignant neoplasm of breast Lipid Panel Today E78.00 - Pure hypercholesterolemia, unspecified, E78.5 - Hyperlipidemia, unspecified TSH reflex Free T4 Today Z13.29 - Encounter for screening for other suspected endocrine disorder Vitamin B12 and Folate Today Z13.21 - Encounter for screening for nutritional disorder PFT pulmonary function test Today R06.02 - Shortness of breath XR chest 2V Today R06.02 - Shortness of breath Comprehensive Met. Panel Today N18.30 - Chronic kidney disease, stage 3 unspecified, Z00.00 - Encounter for general adult medical examination without abnormal findings Vitamin D 25-OH Total Today Z13.21 - Encounter for screening for nutritional disorder AMB Urinalysis Dipstick Today Z13.9 - Encounter for screening, unspecified RT home sleep study Today G47.10 - Hypersomnia, unspecified Referrals Dermatology Referral R21 - Rash and other nonspecific skin eruption Urology Referral N39.3 - Stress incontinence (female) (male) Optometry Referral I10 - Essential (primary) hypertension, Z00.00 - Encounter for general adult medical examination without abnormal findings Medications: New oxybutynin chloride ER 5 mg PO DAILY 90 tabs 0RF clotrimazole 1% 1 appl topical BID 45 grams 0RF omeprazole 20 mg PO DAILY 90 caps 0RF Refilled amlodipine 5 mg PO DAILY 90 tabs 2RF albuterol sulfate 90 mcg/actuation 2 puffs inhalation Q6H PRN 6.7 grams 0RF shortness of breath or wheezing Discontinued acetaminophen (Tylenol Extra Strength) Discontinued Reason: Patient Refused 1,000 mg (2 x 500 mg) PO Q6H PRN 20 tabs 0RF fever or pain diphenhydramine HCl (Benadryl Allergy) Discontinued Reason: Patient no longer taking 50 mg PO QID PRN 20 tabs 0RF itchiness, rash prednisone Discontinued Reason: Patient no longer taking 60 mg (3 x 20 mg) PO DAILY 5 days 15 tabs 0RF hydroxyzine HCl Discontinued Reason: Patient no longer taking 25 mg PO TID PRN 30 tabs 0RF anxiety
== END 2024-11-23 10:09 | disposition home or self-care (01) ==
LOC: HO.HMCH 08:51
DX: Z00.00 Encounter for general adult medical examination without abnormal findings (principal); I12.9 Hypertensive chronic kidney disease with stage 1 through stage 4 chronic kidney disease, or unspecified chronic kidney disease; N18.30 Chronic kidney disease, stage 3 unspecified; E66.9 Obesity, unspecified; Z68.37 Body mass index [BMI] 37.0-37.9, adult; F41.1 Generalized anxiety disorder; R00.2 Palpitations; E78.5 Hyperlipidemia, unspecified; K21.9 Gastro-esophageal reflux disease without esophagitis; H61.23 Impacted cerumen, bilateral; R06.02 Shortness of breath; G47.10 Hypersomnia, unspecified

== ENCOUNTER → 2024-11-23 08:50 | Outpatient (BNVA) | payer OTHER, SELFPAY | DX: Z00.00 Encounter for general adult medical examination without abnormal findings (principal); H61.23 Impacted cerumen, bilateral; K21.9 Gastro-esophageal reflux disease without esophagitis; E78.5 Hyperlipidemia, unspecified; I12.9 Hypertensive chronic kidney disease with stage 1 through stage 4 chronic kidney disease, or unspecified chronic kidney disease; N18.30 Chronic kidney disease, stage 3 unspecified; N39.3 Stress incontinence (female) (male); F41.1 Generalized anxiety disorder; R00.2 Palpitations; E66.9 Obesity, unspecified; R06.02 Shortness of breath; G47.10 Hypersomnia, unspecified; B36.9 Superficial mycosis, unspecified | CPT/HCPCS: 69210; 96127; 99396 ==

== ENCOUNTER 2024-12-07 07:07 | Emergency (ER) | payer OTHER, SELFPAY ==
--- NOTE | ~2024-12-07 | CT_ITS ---
EXAMINATION: CT SOFT TISSUE NECK WITH CONTRAST CLINICAL INFORMATION: Bilateral neck swelling, difficulty breathing. COMPARISON: None available. TECHNIQUE: Following the intravenous administration of 60 mL of Omnipaque 350 intravenous contrast, helical imaging was performed in the axial plane with generation of coronal and sagittal reformatted images. This CT examination was performed using dose optimization techniques as appropriate, variously including the following: *Automated exposure control *Adjustment of mA and/or kV according to patient size (this includes techniques or standardized protocols for targeted exams where dose is matched to indication/reason for exam; i.e. extremities or head) *Use of iterative reconstruction technique FINDINGS: Lymph Nodes: -No pathologic lymphadenopathy evident. There are reactive appearing anterior and posterior cervical chain lymph nodes bilaterally. Carotid Sheath Structures: -Normal. Salivary Glands: -Normal. Tongue Base/Floor of Mouth: -Normal Mucosal Space: -Normal. No lesions identified. -Mild prominence of the tonsillar pillar soft tissues, in keeping with reactive etiology. Visceral Space: -Thyroid gland: Normal. -Larynx is normal. -Subglottic trachea is normal. -Cervical esophagus is normal. Retropharangeal Space: - Normal. Parapharyngeal Fat Planes: -Normal. Electrical Intern Spaces: -Normal. Anterior Cervical Space: -Normal. Imaged Intracranial Contents: -No mass effect, edema, or abnormal enhancement. Cortical and dural venous sinuses are patent. The skull base is normal. Globes and Orbits: -Normal. Paranasal Sinuses/Mastoids/Tympanic Spaces: -Normally aerated bilaterally. Lung Apices and Superior Mediastinal Structures: -Imaged lung apices are clear and superior mediastinal structures are normal. Bony Structures: -No suspicious bone lesions. No fractures. -Normal TM joints. CT/CT soft tissue neck w IV con IMPRESSION: 1. Essentially normal CT examination of the neck. Electronically signed by: Duc Mills MD 12/07/2024 09:33 AM EDT
[2024-12-07 07:29] VITALS: BP 187/125; PULSE 96; RESP 16; TEMP 36.6; O2SAT 98; BMI 37.0
--- NOTE | 2024-12-07 07:40 | ED.GENADULT ---
HPI - General Adult General Chief complaint: Upper Respiratory Symptoms Stated complaint: Swollen tonsils Time Seen by Provider: 12/07/24 07:30 Source: patient and old records reviewed Mode of arrival: ambulatory Limitations: no limitations History of Present Illness ED Provider: GRECIA IVY narrative: 44 yo female with PMH of CKD, HLD, HTN, GERD who states she has had intermittent 5 years of swollen tonsils. She has had strep before but recently it has been negative. She reports it is happening again and noted last night she had tonsil swelling and couldn't sleep. She is able to swallow and eat. She has no fevers. When I ask her about her tonsils it is actually swelling on both sides of the neck. She has no weight loss, cough or fevers. MD complaint: neck swelling Onset (ago): day(s) (1) Location: neck Radiation: neck Severity: moderate Quality: dull Relieving factors: none Exacerbating factors: other Associated symptoms: denies other symptoms Treatments prior to arrival: none Related Data Previous Rx's ?Medication ?Instructions ?Recorded blood pressure monitor #1 ea 08/15/21 cholecalciferol (vitamin D3) 25 25 mcg PO DAILY #30 caps 05/24/24 mcg (1,000 unit) capsule albuterol sulfate 90 mcg/actuation 2 puff inhalation Q6H PRN 11/23/24 aerosol inhaler shortness of breath or wheezing #6.7 grams amlodipine 5 mg tablet 5 mg PO DAILY #90 tabs 11/23/24 clotrimazole 1 % topical cream 1 appl topical BID #45 grams 11/23/24 omeprazole 20 mg capsule,delayed 20 mg PO DAILY #90 caps 11/23/24 release oxybutynin chloride 5 mg 5 mg PO DAILY #90 tabs 11/23/24 tablet,extended release 24 hr amlodipine 10 mg tablet 10 mg PO DAILY #90 tabs 12/07/24 amoxicillin 875 mg-potassium 1 tab PO BID #14 tabs 12/07/24 clavulanate 125 mg tablet prednisone 20 mg tablet 40 mg (2 x 20 mg) PO DAILY 5 days 12/07/24 #10 tabs Allergies Allergy/AdvReac Type Severity Reaction Status Date / Time Lisinopril-hydrochlorothiazide Allergy Mild Itching Uncoded 12/07/24 07:30 Review of Systems Review of Systems: Constitutional : No Fever, No Chills, No Fatigue, no weight loss ENT/Mouth : No sore throat, No Rhinorrhea Eyes: No Eye Pain, No Swelling, No Redness Cardiovascular : No Chest Pain, No SOB, No Dyspnea on Exertion Respiratory : No Cough, No Sputum Gastrointestinal : No Nausea, No Vomiting, No Diarrhea, No abdominal Pain Genitourinary : No Dysuria, No Urinary Frequency, No Hematuria, Musculoskeletal : No joint pain, No Myalgias, No Joint Swelling Skin : No Skin Lesions, No rash Neuro : No Weakness, No Numbness, No Dizziness, no Headache Psych : No Anxiety/Panic, No Depression Heme/Lymph: No Bruising, No Bleeding, pos Lymphadenopathy All other systems reviewed and are negative PMFSH Past Medical History Attestation statement: The following information was validated with the patient. Source: old records reviewed Medical History Bilateral impacted cerumen Encounter to establish care Fibroids Obesity (BMI 35.0-39.9 without comorbidity) Hypertension Surgical History No pertinent past surgical history Family History Family History Maternal Grandmother Cancer Mother High blood pressure Father No problems noted. Other Mental health problem Substance abuse Social History Social History Housing: Condominium Alcohol intake: current Alcohol intake frequency: holidays/special occasions only Patient Tobacco Use Status: Never used Tobacco Smoked in Last 30 Days: No e-Cigarette/Vaping Use: Never Used Second Hand Smoke Exposure: Yes Use of substances other than those prescribed or required for medical reasons: Yes Substance Use Type: Marijuana Advance Directives: No Advance Directives Information Provided: No service: No Current occupational status: disabled Sexual orientation: Straight/Heterosexual Cognitive needs: No Hearing needs: No Vision needs: No Physical Exam ED Vital Signs: Vital Signs - 24 hr 12/07/24 07:29 12/07/24 07:49 12/07/24 10:02 Temperature 98 F Pulse Rate 96 Respiratory Rate 16 Blood Pressure 187/125 H 187/125 H 191/121 H Pulse Oximetry 98 Oxygen Delivery Method Room Air 12/07/24 10:03 Temperature Pulse Rate 82 Respiratory Rate 18 Blood Pressure 191/121 H Pulse Oximetry 98 Oxygen Delivery Method BMI result Body Mass Index 37.0 Appearance: Alert. Oriented X3. No acute distress. Eyes: Pupils equal, round and reactive to light. ENT: Pharynx normal. mild tonsilar swelling no exudates. Neck: Normal inspection. bilateral anterior cervical lymphadenopathy CVS: Normal heart rate and rhythm. Pulses normal. Respiratory: No respiratory distress. Breath sounds normal. No stridor Abdomen: Soft and nontender. Skin: Skin warm and dry. Normal skin color. Extremities: No lower extremity edema. Neuro: Oriented X 3. No motor deficit. No sensory deficit. Course Course Course Narrative: added on amlodipine 5mg asymptomatic HTN Medications Administered Discontinued Medications Generic Name Dose Route Start Last Admin Trade Name Freq PRN Reason Stop Dose Admin Amlodipine Besylate 5 mg 12/07/24 07:38 12/07/24 07:49 Amlodipine Besylate 5 Mg Tablet PO 12/07/24 07:39 5 mg ONCE ONE Administration Protocol Amlodipine Besylate 5 mg 12/07/24 09:57 12/07/24 10:02 Amlodipine Besylate 5 Mg Tablet PO 12/07/24 09:58 5 mg ONCE ONE Administration Protocol Iohexol 100 ml 12/07/24 08:59 12/07/24 09:04 Iohexol 350 Mg/Ml 100 Ml Infus..Btl IV 12/07/24 09:00 60 ml ONCE ONE Administration Medical Decision Making Medical Decision Making [facility] Narrative: 44 yo female with PMH of CKD, HLD, HTN, GERD here with c/o bilateral ant cervical lymphadenopathy but no sore throat or infectious symptoms. I am going to obtain labs, TSH, give her home dose amlodipine and then image neck with CT scan to assess the swelling. It seems mass like vs infectious at this point. Differential Diagnosis Differential Diagnoses: The differential diagnosis associated with the presentation includes lymphadenopathy, thyroid abnormality, mass Admission/Observation Consideration of admission/observation: Escalation of care including admission/observation considered will start on oral abx and prednisone refer to PCP CT scan no pathology Lab Data [facility] Lab Attestation statement: I reviewed the patient's lab results. 12/07/24 07:57 12/07/24 07:57 Labs: Lab Results 12/07/24 12/07/24 Range/Units 07:29 07:57 WBC 6.6 (4.8-10.8) X10*3/uL RBC 4.78 (4.20-5.50) X10*6/uL Hgb 13.5 (12.0-16.0) g/dl Hct 41.2 (37.0-47.0) % MCV 86.2 (80.0-98.0) fL MCH 28.2 (27.0-33.0) pg MCHC 32.8 (31.0-35.0) g/dl RDW 14.6 (11.0-16.0) % Plt Count 248 (160-400) X10*3/uL MPV 11.7 (9.4-12.3) fL Immature Gran % (Auto) Cancelled Neut % (Auto) Cancelled Lymph % (Auto) Cancelled Calloway % (Auto) Cancelled Eos % (Auto) Cancelled Baso % (Auto) Cancelled Lymph # (Auto) Cancelled [place]alloway # (Auto) Cancelled Eos # (Auto) Cancelled Baso # (Auto) Cancelled Abs Immat Gran (auto) Cancelled Absolute Neuts (auto) Cancelled Absolute Nucleated RBC 0.000 (0.0-0.012) X10*3/uL Nucleated RBC % (auto) 0.0 (0.0-0.2) /100WBC Neutrophils % (Manual) 39 L (45-73) % Band Neutrophils % 0 L (3-5) % Lymphocytes % (Manual) 52 H (20-40) % Atypical Lymphs % (Man) 1 (0-6) % Monocytes % (Manual) 3 (2-11) % Eosinophils % (Manual) 3 (0-4) % Basophils % (Manual) 2 (0-2) % Abs Neuts (Manual) 2.6 (2.0-8.3) X10*3/uL Lymphocytes # (Manual) 3.4 (1.2-4.9) X10*3/uL Atyp Lymphs # (Manual) 0.1 x10*3/uL Monocytes # (Manual) 0.2 (0.1-1.2) X10*3/uL Eosinophils # (Manual) 0.2 (0.0-0.4) X10*3/uL Basophils # (Manual) 0.1 (0.0-0.2) X10*3/uL Smudge Cells PRESENT Toxic Vacuolation PRESENT Platelet Estimate NORMAL (NORMAL) Large Platelets PRESENT Plt Morphology Comment NOTED RBC Morphology NOTED Tear Drop Cells 1+ (0-2) /OIF Sodium 141 (135-145) mmol/L Potassium 4.0 (3.3-5.1) mmol/L Chloride 110 H (96-108) mmol/L Carbon Dioxide 21 L (22-29) mmol/L Anion Gap 14 (12-20) BUN 15 (9-16) mg/dL Creatinine 1.07 (0.5-1.4) mg/dL Estim Creat Clear Calc 67.3 Estimated GFR 55 Random Glucose 117 H (60-115) mg/dL Calcium 9.6 D (8.4-10.2) mg/dL Magnesium 2.0 (1.6-2.6) mg/dL Total Bilirubin 0.2 (0.0-1.0) mg/dL Direct Bilirubin < 0.2 (0.0-0.5) mg/dL AST 19 (5-31) U/L ALT 17 (0-31) U/L Alkaline Phosphatase 69 (39-117) U/L Total Protein 7.5 (6.5-8.0) g/dL Albumin 4.4 (3.5-5.0) g/dL Beta HCG, Quant < 2 mIU/mL S. pyogenes GrpA HILL Negative (Negative) Independent Interpretation I performed an independent interpretation of an: CT Scan (reactive lymph nodes) Radiology Impression Discussion of test interpretation with radiology: I have reviewed the radiologist's reading. External Record Review External record reviewed: Outpatient record and Prior outpatient labs Prescription Management I considered prescription management with: Other Discharge Plan Discharge Clinical Impression: Reactive cervical lymphadenopathy Patient Disposition: Home, Self-Care Instructions: Lymphadenopathy (ED) Additional Instructions: negative for strep your labs are reassuring your CT scan shows no mass just reactive lymph nodes, follow up with your doctor in one week return for worsening symptoms or concerns rest and stay hydrated take all medications with food On amoxicillin-clavulanate, softer bowel movements are to be expected. Call your provider if you move your bowels more than 4 times a day, your bowel movements are almost all liquid, or you get a rash.? YOUR BLOOD PRESSURE IS ELEVATED INCREASE YOUR AMLODIPINE TO 10MG DAILY REPEAT WITH DOCTOR IN ONE WEEK Lymph Nodes: -No pathologic lymphadenopathy evident. There are reactive appearing anterior and posterior cervical chain lymph nodes bilaterally. Carotid Sheath Structures: -Normal. Salivary Glands: -Normal. Tongue Base/Floor of Mouth: -Normal Mucosal Space: -Normal. No lesions identified. -Mild prominence of the tonsillar pillar soft tissues, in keeping with reactive etiology. Visceral Space: -Thyroid gland: Normal. -Larynx is normal. -Subglottic trachea is normal. -Cervical esophagus is normal. Retropharangeal Space: - Normal. Parapharyngeal Fat Planes: -Normal. Sample Book Maker Spaces: -Normal. Anterior Cervical Space: -Normal. Imaged Intracranial Contents: -No mass effect, edema, or abnormal enhancement. Cortical and dural venous sinuses are patent. The skull base is normal. Globes and Orbits: -Normal. Paranasal Sinuses/Mastoids/Tympanic Spaces: -Normally aerated bilaterally. Lung Apices and Superior Mediastinal Structures: -Imaged lung apices are clear and superior mediastinal structures are normal. Bony Structures: -No suspicious bone lesions. No fractures. -Normal TM joints. CT/CT soft tissue neck w IV con IMPRESSION: 1. Essentially normal CT examination of the neck. Prescriptions: New prednisone 20 mg tablet 40 mg PO DAILY 5 Days Qty: 10 0RF amoxicillin-pot clavulanate 875-125 mg tablet 1 tab PO BID Qty: 14 0RF amlodipine 10 mg tablet 10 mg PO DAILY Qty: 90 0RF No Action cholecalciferol (vitamin D3) 25 mcg (1,000 unit) capsule 25 mcg PO DAILY Qty: 30 2RF (DME) blood pressure monitor Kit See Rx Instructions .Route Qty: 1 0RF Rx Instructions: As directed oxybutynin chloride 5 mg tablet extended release 24hr 5 mg PO DAILY Qty: 90 0RF amlodipine 5 mg tablet 5 mg PO DAILY Qty: 90 2RF albuterol sulfate 90 mcg/actuation HFA aerosol inhaler 2 puff inhalation Q6H PRN (Reason: shortness of breath or wheezing) Qty: 6.7 0RF omeprazole 20 mg capsule,delayed release(DR/EC) 20 mg PO DAILY Qty: 90 0RF clotrimazole 1 % cream 1 appl topical BID Qty: 45 0RF Stand Alone Forms: Work/School Release Print Language: Luxembourgish
[2024-12-07 07:49] VITALS: BP 187/125
[2024-12-07 07:51] LABS: IDNOW Serial# 55D5AD1C; Strep A Nucleic Acid Negative (Negative)
[2024-12-07 08:04] LABS: Hematocrit 41.2 % (37.0-47.0); Hemoglobin 13.5 g/dl (12.0-16.0); Mean Corpuscular HGB Conc 32.8 g/dl (31.0-35.0); Mean Corpuscular Hemoglobin 28.2 pg (27.0-33.0); Mean Corpuscular Volume 86.2 fL (80.0-98.0); NRBC Abs Auto 0.000 X10*3/uL (0.0-0.012); NRBC Pct Auto 0.0 /100WBC (0.0-0.2); Platelet Count 248 X10*3/uL (160-400); Red Blood Count 4.78 X10*6/uL (4.20-5.50)
[2024-12-07 08:08] LABS: WBC ABN SCTR FOR CBC 1
[2024-12-07 08:26] LABS: Atypical Lymphs Percent Manual 1 % (0-6); Basophils Percent Manual 2 % (0-2); Eosinophils Percent Manual 3 % (0-4); Lymphocytes Percent Manual 52 % (20-40); Monocytes Percent Manual 3 % (2-11); Neutrophils Percent Manual 39 % (45-73)
[2024-12-07 08:31] LABS: Large Platelet PRESENT; RBC Morphology NOTED; Smudge Cells PRESENT; Tear Drop Cells 1+ (0-2) /OIF; Toxic Vacuolation PRESENT
[2024-12-07 08:32] LABS: Atypical Lymph Absolute Manual 0.1 x10*3/uL; Band Neutrophils Percent 0 % (3-5); Basophils Abs Manual 0.1 X10*3/uL (0.0-0.2); Eosinophils Absolute Manual 0.2 X10*3/uL (0.0-0.4); Lymphocytes Absolute Manual 3.4 X10*3/uL (1.2-4.9); Monocytes Absolute Manual 0.2 X10*3/uL (0.1-1.2); Neutrophils Absolute Manual 2.6 X10*3/uL (2.0-8.3); White Blood Count 6.6 X10*3/uL (4.8-10.8)
[2024-12-07 08:35] LABS: Alanine Aminotransferase 17 U/L (0-31); Albumin Level 4.4 g/dL (3.5-5.0); Alkaline Phosphatase 69 U/L (39-117); Anion Gap 14 (12-20); Aspartate Amino Transferase 19 U/L (5-31); Blood Urea Nitrogen 15 mg/dL (9-16); Calcium 9.6 mg/dL (8.4-10.2); Carbon Dioxide 21 mmol/L (22-29); Chloride 110 mmol/L (96-108); Creatinine Clr Calc Pharmacy 67.3; Estimated Glomerular Filt Rate 55; Magnesium 2.0 mg/dL (1.6-2.6); Potassium 4.0 mmol/L (3.3-5.1); Sodium 141 mmol/L (135-145); Total Protein 7.5 g/dL (6.5-8.0)
[2024-12-07] MEDS: iohexoL 350 MG/ML 100 ML INFUS..BTL IV (09:04)
[2024-12-07 10:02] VITALS: BP 191/121
[2024-12-07 10:03] VITALS: BP 191/121; PULSE 82; RESP 18; O2SAT 98
[2024-12-07 11:08] VITALS: BP 179/113; PULSE 80; RESP 18; O2SAT 98
[2024-12-07 11:12] VITALS: BP 179/113; PULSE 80; RESP 18; TEMP 36.6; O2SAT 98
== END 2024-12-07 11:17 | disposition home or self-care (01) ==
PROVIDERS: Emergency Provider Emergency Medicine
DX: R59.0 Localized enlarged lymph nodes (principal); R06.00 Dyspnea, unspecified; I12.9 Hypertensive chronic kidney disease with stage 1 through stage 4 chronic kidney disease, or unspecified chronic kidney disease; N18.9 Chronic kidney disease, unspecified; K21.9 Gastro-esophageal reflux disease without esophagitis; Z03.818 Encounter for observation for suspected exposure to other biological agents ruled out
CPT/HCPCS: 36415; 70491; 80048; 80076; 83735; 84702; 85007; 85027; 87651; 99284; 99285; Q9967

== ENCOUNTER → 2024-12-07 07:38 | Outpatient (BNV) | payer MEDICARE, SELFPAY | PROVIDERS: Emergency Provider Emergency Medicine; Visit Provider Radiology Diagnostic Radiology | DX: R22.1 Localized swelling, mass and lump, neck (principal); R06.9 Unspecified abnormalities of breathing | CPT/HCPCS: 70491 ==

== ENCOUNTER 2024-12-30 08:05 | Emergency (ER) | payer OTHER, SELFPAY ==
[2024-12-30 08:10] VITALS: BP 168/90; PULSE 96; RESP 20; TEMP 36.5; O2SAT 98; BMI 37.2
--- NOTE | 2024-12-30 09:00 | ED_ITS ---
HPI - General Adult General Chief complaint: Allergic Reaction Stated complaint: Neck rash/swelling Time Seen by Provider: 12/30/24 08:59 Source: patient Mode of arrival: ambulatory Limitations: no limitations History of Present Illness ED Provider: Margot Bautista PA-C HPI narrative: Patient is a 44 year old assigned female at with a history of ADAIR, HTN compliant with medications, CKD, and HLD presenting to the emergency department today with a rash. Patient states that over the last 2 days she has had a rash around her neck and her left thigh / left lower abdomen. Patient denies any changes in foods, medications, bedding, or anything else. Patient states that the rash is very itchy. Patient denies any other complaints at this time. Related Data Previous Rx's ?Medication ?Instructions ?Recorded blood pressure monitor #1 ea 08/15/21 cholecalciferol (vitamin D3) 25 25 mcg PO DAILY #30 ca ps 05/24/24 mcg (1,000 unit) capsule albuterol sulfate 90 mcg/actuation 2 puff inhalation Q 6H PRN 11/23/24 aerosol inhaler shortness of breath or wheez ing #6.7 grams amlodipine 5 mg tablet 5 mg PO DAILY #90 tabs 11/23 clotrimazole 1 % topical cream 1 appl topical BID #45 grams 11/23/24 omeprazole 20 mg capsule,delayed 20 mg PO DAILY #90 ca ps 11/23/24 release oxybutynin chloride 5 mg 5 mg PO DAILY #90 tabs 11/23 tablet,extended release 24 hr amlodipine 10 mg tablet 10 mg PO DAILY #90 tabs 11/22 09/15 amoxicillin 875 mg-potassium 1 tab PO BID #14 tabs clavulanate 125 mg tablet prednisone 20 mg tablet 40 mg (2 x 20 mg) PO DAILY 5 days 12/07/24 #10 tabs fluconazole 150 mg tablet 150 mg PO Q3D 2 doses #2 tab s 12/30/24 prednisone 20 mg tablet 40 mg (2 x 20 mg) PO DAILY C OPD 12/30/24 exacerbation 5 days #10 tabs Allergies Allergy/AdvReac Type Severity Reaction Status Date / Time Lisinopril-hydrochlorothiazide Allergy Mild Itching Uncoded 12/30/24 08:14 Review of Systems 2 Constitutional: Constitutional: Reports as per HPI Eyes: Eyes: Reports as per HPI ENT: Reports as per HPI Cardiovascular: Cardiovascular: Reports as per HPI Respiratory: Respiratory: Reports as per HPI Gastrointestinal: Gastrointestinal: Reports as per HPI Genitourinary: Genitourinary: Reports as per HPI Musculoskeletal: Musculoskeletal: Reports as per HPI Integumentary/Breasts: Skin/Breast: Reports as per HPI Neurologic: Reports as per HPI Psychiatric: Psychiatric: Reports as per HPI Endocrine: Endocrine: Reports as per HPI Hematologic/Lymphatic: Hematologic/Lymphatic: Reports as per HPI Allergic/Immunologic: Allergic/Immunologic: Reports as per HPI [facility] Past Medical History Attestation statement: The following information was validated with the patient. Source: old records reviewed and nursing notes reviewed Medical History Bilateral impacted cerumen Encounter to establish care Fibroids Obesity (BMI 35.0-39.9 without comorbidity) Hypertension Surgical History No pertinent past surgical history Family History Family History Maternal Grandmother Cancer Mother High blood pressure Father No problems noted. Other Mental health problem Substance abuse Social History Social History Housing: Condominium Alcohol intake: current Alcohol intake frequency: holidays/special occasions only Patient Tobacco Use Status: Never used Tobacco Smoked in Last 30 Days: No e-Cigarette/Vaping Use: Never Used Second Hand Smoke Exposure: Yes Use of substances other than those prescribed or required for medical reasons: Yes Substance Use Type: Marijuana Advance Directives: No Advance Directives Information Provided: Yes Do you have a plan to hurt others: No Plan Patient : No service: No Current occupational status: disabled Sexual orientation: Straight/Heterosexual Cognitive needs: No Hearing needs: No Vision needs: No Physical Exam ED Vital Signs: Vital Signs - 24 hr 12/30/24 08:10 Temperature 97.7 F Pulse Rate 96 Respiratory Rate 20 Blood Pressure 168/90 H Pulse Oximetry 98 Oxygen Delivery Method Room Air BMI result Body Mass Index 37.2 Const General: cooperative, no acute distress, alert and awake Nutritional Appearance: well nourished Orientation/consciousness: patient oriented x3 HENMT Head: Yes normal to inspection and Yes atraumatic Ears: hearing grossly normal bilaterally and external ears normal General nose exam: Normal external nose present, no nasal discharge noted and no epistaxis Face and sinus: Yes normal facial exam, No abrasion and No laceration Mouth: Normal oral and palatal mucosa present, no drooling and no muffled voice Eyes General: appearance normal, both eyes and all related structures Periorbital: periorbital findings normal Eyelids: Yes eyelids normal Conjunctivae: conjunctivae normal Pupils: Equal, round and reactive pupils present EOM: EOMs intact bilaterally Neck Neck: Yes full ROM Resp Effort & Inspection: normal respiratory effort and able to speak in complete sentences Skin Other: Neuro General: patient oriented x3, moves all extremities and CN's II-XI intact bilaterally Cranial nerves: Yes Equal, round and reactive pupils present Cognition (Neuro): normal cognition Extrem General: Yes normal to inspection, Yes full ROM and Yes capillary refill normal Psych Appearance: grossly normal Mental Status: mental status grossly normal Affect: normal affect Attitude: cooperative Thought process: Normal thought process present Thought content: Normal thought content present Insight: Good insight present (Psych) Medications Administered Discontinued Medications Generic Name Dose Route Start Last Admin Trade Name Freq PRN Reason Stop Dose Admin Ketorolac Tromethamine 15 mg 12/30/24 09:24 12/30/24 09:45 Ketorolac Tromethamine 15 Mg/Ml Vial IM 12/30/24 09:25 15 mg ONCE ONE Administration Medical Decision Making Medical Decision Making [facility] Narrative: Patient is a 44 year old assigned female at with a history of ADAIR, HTN compliant with medications, CKD, and HLD presenting to the emergency department today with a rash. Patient's physical exam was as noted in the physical exam portion of this note and consistent with urticaria and has some areas consistent with yeast. I explained my physical exam findings to the patient. I answered all questions asked by the patient. I stressed the importance of the patient taking her medication as directed (either prescribed or as the over the counter packaging recommends). I stressed the importance of the patient following up with her primary care provider and an multiple launch rocket system crewmember. I stressed the importance of the patient returning to the emergency department immediately if her symptoms were to worsen or if she were to develop any dizziness, shortness of breath, difficulty breathing, chest pain, blurry vision, loss of vision, nausea, vomiting, abdominal pain, fever, chills, back pain, or any other complaints. Patient verbalized agreement and understanding with this treatment plan and discharge. Differential Diagnosis Differential Diagnoses: The differential diagnosis associated with the presentation includes Urticaria Idiopathic urticaria Yeast Rash Admission/Observation Consideration of admission/observation: Escalation of care including admission/observation considered Patient would have been admitted to the hospital had her clinical presentation warranted hospital admission. Prescription Management I considered prescription management with: Other (patient prescribed an antifungal and prednisone) Discharge Plan Discharge Clinical Impression: Urticaria, Yeast dermatitis Patient Disposition: Home, Self-Care Instructions: Urticaria (ED), Acute Rash (ED), Skin Yeast Infection (ED) Additional Instructions: Your rash is most consistent with hives and possible yeast. Take your medication as prescribed. Follow up with an multiple launch rocket system crewmember. IF you are prescribed home medications and/or you are taking over the counter medications at home - it is very important you continue to do so as prescribed / directed unless told otherwise. Follow up with your primary care provider. Return to the emergency department immediately if your symptoms worsen or if you develop any numbness, tingling, dizziness, shortness of breath, difficulty breathing, chest pain, blurry vision, loss of vision, nausea, vomiting, abdominal pain, fever, chills, back pain, or any other complaints. Please see the information below about our Patient Portal. If you are not yet enrolled in the [facility] Patient Portal, you will receive an enrollment email invitation following your visit to any [facility] care setting. You may also self-enroll in the Patient Portal by visiting our website: [email or web address] The following information is required to access the Patient Portal: - Your [facility] Medical Record Number - Your personal home email address (must match what is in your electronic medical record, Registration staff can assist with this) - Name - Date of Capabilities of the Patient Portal: - Message some providers - View upcoming appointments - Access your health summary, medical history, and visit history - View current conditions and allergies - View procedure and lab results - View your medications, including guidelines, side effects, and precautions - Complete pre-appointment questionnaires requested by your provider - Ready summary reports of your office visits and procedures To access the Patient Portal Mobile Satinder, follow these directions: - Search [employer] in the Satinder Store or Google Play Store - Download the Satinder - Search for [facility] - Enter your login/password Prescriptions: New fluconazole 150 mg tablet 150 mg PO Q3D Qty: 2 0RF prednisone 20 mg tablet 40 mg PO DAILY 5 Days Qty: 10 0RF No Action cholecalciferol (vitamin D3) 25 mcg (1,000 unit) capsule 25 mcg PO DAILY Qty: 30 2RF prednisone 20 mg tablet 40 mg PO DAILY 5 Days Qty: 10 0RF amoxicillin-pot clavulanate 875-125 mg tablet 1 tab PO BID Qty: 14 0RF amlodipine 10 mg tablet 10 mg PO DAILY Qty: 90 0RF (DME) blood pressure monitor Kit See Rx Instructions .Route Qty: 1 0RF Rx Instructions: As directed oxybutynin chloride 5 mg tablet extended release 24hr 5 mg PO DAILY Qty: 90 0RF amlodipine 5 mg tablet 5 mg PO DAILY Qty: 90 2RF albuterol sulfate 90 mcg/actuation HFA aerosol inhaler 2 puff inhalation Q6H PRN (Reason: shortness of breath or wheezing) Qty: 6.7 0RF omeprazole 20 mg capsule,delayed release(DR/EC) 20 mg PO DAILY Qty: 90 0RF clotrimazole 1 % cream 1 appl topical BID Qty: 45 0RF Referrals: Juan Diego Hodges MD [Physician, Allergy & Immunology] Referral Note: Call to establish and follow up with an multiple launch rocket system crewmember. Arben Weaver DO [Physician, Allergy & Immunology] Referral Note: Call to establish and follow up with an multiple launch rocket system crewmember. Mary Marroquin PA-C [Primary Care Provider, Internal Medicine] Print Language: Kyrgyz
--- NOTE | 2024-12-30 09:09 | PC.NURSE ---
patient a&ox3, rr equal/non labored, pt c/o 12/31 pain of neck/throat area- rash to lt leg and near neck, pt states she has waited 2 days to see if it would go away without relief, pt awaiting provider evaluation
[2024-12-30 10:06] VITALS: BP 155/89; PULSE 92; RESP 20; TEMP 36.2; O2SAT 98
== END 2024-12-30 10:07 | disposition home or self-care (01) ==
PROVIDERS: Emergency Provider Emergency Medicine
DX: L50.0 Allergic urticaria (principal); B37.2 Candidiasis of skin and nail; I10 Essential (primary) hypertension; E78.5 Hyperlipidemia, unspecified; N18.9 Chronic kidney disease, unspecified
CPT/HCPCS: 96372; 99284; J1885

== ENCOUNTER 2025-01-17 08:54 | Outpatient (REF) | payer OTHER, SELFPAY | END 2025-01-17 08:55 | disposition home or self-care (01) | LOC: HO.LAB 08:54 | PROVIDERS: Visit Provider Urology | DX: N39.3 Stress incontinence (female) (male) (principal); N39.41 Urge incontinence; R31.29 Other microscopic hematuria | CPT/HCPCS: 51798; 81003; 88112; 99202 ==

== ENCOUNTER 2025-01-17 08:54 | Outpatient (AMB) | payer MEDICARE, SELFPAY ==
--- NOTE | 2025-01-17 09:03 | A.OFFVIS_ITS ---
Intake Visit Reasons: stress incontinence Intake Note: New patient presents today for initial visit for stress incontinence Urology Medication:Oxybutynin Blood Thinner:None Antibiotic Allergies:None PVR:101ml Allergies Lisinopril-hydrochlorothiazide Allergy (Mild, Uncoded 12/30/24 08:14) Itching Medication List - Last Reconciled 01/17/25 by Amee Jacobo MD albuterol sulfate 90 mcg/actuation 2 puffs inhalation Q6H PRN amlodipine 10 mg PO DAILY amlodipine 5 mg PO DAILY blood pressure monitor As directed cholecalciferol (vitamin D3) 25 mcg PO DAILY clotrimazole 1% 1 appl topical BID omeprazole 20 mg PO DAILY prednisone 40 mg (2 x 20 mg) PO DAILY 5 days prednisone 40 mg (2 x 20 mg) PO DAILY 5 days solifenacin (Vesicare) 10 mg PO DAILY HPI Comments Details: Velia is here as a new patient evaluation for stress urinary incontinence. Urinalysis microscopic hematuria. 3+Blood, leukocytes negative. History of Present Illness The patient is a 44-year-old female presenting with urinary incontinence. She reports experiencing urinary incontinence for a couple of years, which has progressively worsened, leading to frequent episodes of bedwetting and involuntary urination during activities such as coughing or sneezing. The patient has been using oxybutynin for the past month and a half without significant improvement in symptoms. The patient states she was informed by PCP that she has stage 3 chronic kidney disease, which she was unaware of until recently, and she is now seeking further evaluation and management. The patient also has a history of hypertension, which is being managed with medication. She has reduced her caffeine intake from two cups of coffee per day to one, which has slightly alleviated her urinary symptoms. The patient has a history of cervical cancer, for which she underwent testing and is scheduled for further evaluation. She has had two pregnancies, both resulting in vaginal deliveries (6lbs). Results - Urinalysis: Microscopic hematuria, 3 plus blood, leukocytes negative - Post-void residual (PVR): 101 mL Plan 1. Urinary Incontinence 2. Microscopic Hematuria - Discontinue oxybutynin due to lack of efficacy. - Initiate solifenacin to manage bladder spasms and urge incontinence. - Plan for cystoscopy, pelvic exam at that time. - Order renal ultrasound h/o--Stage 3 Chronic Kidney Disease, PCP monitoring h/o--Cervical Cancer, followed by [facility] Medical History Bilateral impacted cerumen Encounter to establish care Fibroids Obesity (BMI 35.0-39.9 without comorbidity) Hypertension Surgical History No pertinent past surgical history Family History Maternal Grandmother Cancer Mother High blood pressure Father No problems noted. Other Mental health problem Substance abuse Social History Housing: Condominium Alcohol intake: current Alcohol intake frequency: holidays/special occasions only Patient Tobacco Use Status: Never used Tobacco e-Cigarette/Vaping Use: Never Used Second Hand Smoke Exposure: Yes Substance Use Type: Marijuana service: No Current occupational status: disabled Sexual orientation: Straight/Heterosexual Cognitive needs: No Hearing needs: No Vision needs: No Female Reproductive History Menstrual Age of Menarche: 11 Review of Systems Const All systems reviewed & are unremarkable except as noted in HPI and below Reports no additional complaints Eyes Reports no additional complaints ENT Reports no additional complaints Card Reports no additional complaints Resp Reports no additional complaints GI Reports no additional complaints Reports as per HPI Musc Reports no additional complaints Skin/Breast Reports system reviewed and no additional complaints, except as documented Neuro Reports no additional complaints Psych Reports no additional complaints Endo Reports no additional complaints [place]/Lymph Reports no additional complaints Aller/Immun Reports no additional complaints Physical Exam Const General: cooperative, healthy appearing and no acute distress Orientation/consciousness: patient oriented x3 HEENT Head: Yes normal to inspection, Yes normocephalic and Yes atraumatic Eyes Conjunctivae: conjunctivae normal Neck Neck: Yes normal visual inspection and Yes trachea midline Chest Chest palpation & inspection: normal inspection of the chest Resp Effort & Inspection: normal respiratory effort GI Inspection: Yes normal to inspection Neuro General: patient oriented x3 Psych Appearance: grossly normal Assessment & Plan Assessment & Plan (1) Stress incontinence: Code(s): N39.3 - Stress incontinence (female) (male) Category: Medical (2) Enureses: Code(s): R32 - Unspecified urinary incontinence Category: Medical (3) Urinary urgency: Code(s): R39.15 - Urgency of urination Category: Medical (4) Urge incontinence of urine: Code(s): N39.41 - Urge incontinence Category: Medical (5) Microscopic hematuria: Code(s): R31.29 - Other microscopic hematuria Category: Medical Plan Plan 1. Urinary Incontinence 2. Microscopic Hematuria - Discontinue oxybutynin due to lack of efficacy. - Initiate solifenacin to manage bladder spasms and urge incontinence. - Plan for cystoscopy, pelvic exam at that time. - Order renal ultrasound h/o--Stage 3 Chronic Kidney Disease, PCP monitoring h/o--Cervical Cancer, followed by [facility] Orders: Orders US renal BI Today R31.29 - Other microscopic hematuria Medications: New solifenacin (Vesicare) 10 mg PO DAILY 90 tabs 2RF Discontinued oxybutynin chloride ER Discontinued Reason: Doctor's Order 5 mg PO DAILY 90 tabs 0RF Patient Instructions: The patient had an opportunity to ask questions regarding treatment plan. The patient expressed understanding and agreement with the above treatment plan. The patient is aware they should contact our office by phone for worsening of their current condition or the appearance of new symptoms. Compliance is encouraged with any medications and followup testing that is ordered. It is a privilege to be allowed the opportunity to participate in the urologic care of your patient. If you have any questions or concerns regarding treatment for the above conditions please do not hesitate to contact me. The office telephone contact is [phone]. This note is constructed in part using voice recognition software. While every effort has been made to ensure accuracy supervisor calibration errors may have been included. Yours sincerely, Amee Jacobo MD Scribe Plan - Not visible on output: Patient was informed and verbally consented to the use of an ambient scribe for clinic note documentation during this visit. Coding Level of Care Code New Pt Level 4 (52693) Diagnoses Stress incontinence N39.3 Enureses R32 Urinary urgency R39.15 Urge incontinence of urine N39.41 Microscopic hematuria R31.29
== END 2025-01-17 09:39 | disposition home or self-care (01) ==
LOC: HO.HUSH 08:55
PROVIDERS: Visit Provider Urology
DX: N39.3 Stress incontinence (female) (male) (principal); R32 Unspecified urinary incontinence; R39.15 Urgency of urination; N39.41 Urge incontinence; R31.29 Other microscopic hematuria
CPT/HCPCS: 99204

== ENCOUNTER 2025-01-31 09:39 | Outpatient (AMB) | payer OTHER, SELFPAY ==
--- NOTE | 2025-01-31 09:42 | MHC.OFFVIS ---
Vital Signs 01/31/25 09:47 Height 5 ft 1 in Weight 192 lb BMI 36.3 BP 126/86 Intake Visit Reasons: Annual [employer] Architect: [employer] Architect Present ([email or web address]) Accompanied by: Self / Same As Patient Allergies Lisinopril-hydrochlorothiazide Allergy (Mild, Uncoded 12/30/24 08:14) Itching Is last menstrual period known: Yes Last menstrual period: 01/05/25 Post menopausal: No Patient : No HPI Comments Details: Presenting for annual exam. Complaining of heavier longer menstrual cycles over the last few months Last Pap/HPV was in 02/14 ascus/HPV positive, colpo biopsy ECC negative Last Mammogram was BI-RADS 1 in 02/12 No Previous screening colonoscopy [facility] Medical History ASCUS with positive high risk HPV cervical Bilateral impacted cerumen Encounter to establish care Fibroids Obesity (BMI 35.0-39.9 without comorbidity) Hypertension Surgical History No pertinent past surgical history Family History Maternal Grandmother Cancer Mother High blood pressure Father No problems noted. Other Mental health problem Substance abuse Social History Housing: Condominium Alcohol intake: current Alcohol intake frequency: holidays/special occasions only Patient Tobacco Use Status: Never used Tobacco e-Cigarette/Vaping Use: Never Used Second Hand Smoke Exposure: Yes Substance Use Type: Marijuana Patient : No service: No Current occupational status: disabled Sexual orientation: Straight/Heterosexual Cognitive needs: No Hearing needs: No Vision needs: No Female Reproductive History Menstrual Age of Menarche: 11 Duration of menses: 8-10 days Date of last menstrual period: 01/05/25 control method: none Date of last pap smear: 01/26/24 (ASCUS +HPV ) Date of Mammogram: 02/15/22 (bi rad 1) Review of Systems Const All systems reviewed & are unremarkable except as noted in HPI and below Card Reports as per HPI Resp Reports as per HPI GI Reports as per HPI and Reports no additional complaints Reports as per HPI Physical Exam Vital Signs: Last Vital Signs BP 126/86 01/31/25 09:47 BMI result Body Mass Index 36.3 Const General: cooperative, healthy appearing and comfortable Chest Chest palpation & inspection: normal inspection of the chest and normal palpation of entire chest wall Breast/axilla inspection: normal inspection of the breasts and normal inspection of the axillae Breast/axilla palpation: normal palpation of the breasts, normal palpation of the axillae and no axillary lymphadenopathy Resp Effort & Inspection: normal respiratory effort Auscultation: clear to auscultation bilaterally Percussion: percussion normal Cardio Palpation: normal PMI Rate: regular rate Rhythm: regular rhythm Heart sounds: no murmurs and no rubs Peripheral pulses: Peripheral pulses 2+ throughout GI Inspection: Yes normal to inspection Palpation (GI): Soft to palpation, nontender, no guarding, not rigid and No hepatosplenomegaly present Percussion: Yes normal to percussion Auscultation: normal bowel sounds Rectal Exam - Female: deferred General: Yes bladder normal to palpation External Female Exam: No lesion Speculum Exam - Vagina: normal appearance of the vagina, normal palpation, normal vaginal discharge and not erythematous Speculum Exam - Cervix: normal appearance of the cervix and normal palpation Bimanual exam- vagina & uterus: normal bimanual exam, normal palpation, uterine size normal, bladder normal to palpation, consistency normal and normal palpation Bimanual Exam- Adnexa, other: normal adnexae, no masses and no tenderness Assessment & Plan Assessment & Plan (1) Well woman exam with routine gynecological exam: Code(s): Z01.419 - Encounter for gynecological examination (general) (routine) without abnormal findings Category: Medical Plan: Cotesting done. Mammogram ordered. Counseled the patient about the recommended dietary allowance of 1000 mg of Calcium & 600 IU of vitamin D. GI referral placed for screening colonoscopy The patient was instructed to perform monthly self-breast exams and to schedule an annual exam in a year; All questions answered and the patient verbalized understanding. Instructed the patient to schedule annual exam in a year (2) Abnormal uterine bleeding (AUB): Code(s): N93.9 - Abnormal uterine and vaginal bleeding, unspecified Category: Medical Plan: Co testing done, GC and chlamydia taken CBC, TSH, HCG, and pelvic ultrasound ordered. Discussed with the patient the different causes of abnormal bleeding including thyroid disorders, uterine and ovarian pathology, endometrial hyperplasia, carcinoma and other potential causes. Discussed with the patient the work up including CBC (to r/o anemia), TSH, pelvic Ultrasound, endometrial biopsy to r/o endometrial pathology. All questions answered and the patient verbalized understanding. Instructed the patient to schedule an appointment for an endometrial biopsy in 2 weeks. Orders: Orders HCG Quantitative Today N93.9 - Abnormal uterine and vaginal bleeding, unspecified Complete Blood Count no Diff Today N93.9 - Abnormal uterine and vaginal bleeding, unspecified US pelvic and transvaginal Today N93.9 - Abnormal uterine and vaginal bleeding, unspecified MM tomosynthesis screening BI Today Z12.31 - Encounter for screening mammogram for malignant neoplasm of breast TSH reflex Free T4 Today N93.9 - Abnormal uterine and vaginal bleeding, unspecified Referrals Gastroenterology Referral Z12.11 - Encounter for screening for malignant neoplasm of colon Coding Level of Care Code Est Pt Level 3 (67481) Est Pt Prev Care 40-64y(27036) Diagnoses Well woman exam with routine gynecological exam Z01.419 Abnormal uterine bleeding (AUB) N93.9
[2025-01-31 09:47] VITALS: BP 126/86; BMI 36.3
== END 2025-01-31 10:12 | disposition home or self-care (01) ==
LOC: HO.HWS 09:40
PROVIDERS: Visit Provider Obstetrics & Gynecology
DX: Z01.419 Encounter for gynecological examination (general) (routine) without abnormal findings (principal); N93.9 Abnormal uterine and vaginal bleeding, unspecified
CPT/HCPCS: 99213; 99396; 99459

== ENCOUNTER 2025-01-31 09:39 | Outpatient (REF) | payer OTHER, SELFPAY ==
[2025-01-31 10:53] LABS: Hematocrit 43.2 % (37.0-47.0); Hemoglobin 13.8 g/dl (12.0-16.0); Mean Corpuscular HGB Conc 31.9 g/dl (31.0-35.0); Mean Corpuscular Hemoglobin 27.2 pg (27.0-33.0); Mean Corpuscular Volume 85.2 fL (80.0-98.0); NRBC Abs Auto 0.000 X10*3/uL (0.0-0.012); NRBC Pct Auto 0.0 /100WBC (0.0-0.2); Platelet Count 338 X10*3/uL (160-400); Red Blood Count 5.07 X10*6/uL (4.20-5.50); White Blood Count 8.4 X10*3/uL (4.8-10.8)
[2025-01-31 18:28] LABS: CT PCR NOT DETECTED (Not Detect.); NG PCR NOT DETECTED (Not Detect.)
== END 2025-01-31 09:40 | disposition home or self-care (01) ==
LOC: HO.LAB 09:39
PROVIDERS: Visit Provider Obstetrics & Gynecology
DX: Z01.419 Encounter for gynecological examination (general) (routine) without abnormal findings (principal); N93.9 Abnormal uterine and vaginal bleeding, unspecified; Z12.31 Encounter for screening mammogram for malignant neoplasm of breast; Z12.11 Encounter for screening for malignant neoplasm of colon; Z13.29 Encounter for screening for other suspected endocrine disorder; Z20.2 Contact with and (suspected) exposure to infections with a predominantly sexual mode of transmission
CPT/HCPCS: 36415; 84443; 84702; 85027; 87491; 87591; 87626; 88175; 99212; 99396

== ENCOUNTER 2025-02-28 10:10 | Outpatient (AMB) | payer MEDICARE, SELFPAY ==
--- NOTE | 2025-02-28 10:15 | A.OFFPC_ITS ---
Vital Signs 02/28/25 10:16 Height 5 ft 1 in Weight 202 lb BMI 38.2 BP 136/90 H Blood Pressure Location Lt brachial Position Sitting Pulse 89 Pulse Source Pulse Oximeter Temp 97.0 F Temp Source Temporal Artery Scan Pulse Oximetry (%) 97 Oxygen Delivery Method Room Air Intake Visit Reasons: f/u SOB Allergies Lisinopril-hydrochlorothiazide Allergy (Mild, Uncoded 02/28/25 10:30) Itching Medication List - Last Reconciled 02/28/25 by Mary Marroquin PA-C albuterol sulfate 90 mcg/actuation 2 puffs inhalation Q6H PRN amlodipine 10 mg PO DAILY amlodipine 5 mg PO DAILY blood pressure monitor As directed cholecalciferol (vitamin D3) 25 mcg PO DAILY clotrimazole 1% 1 appl topical BID omeprazole 20 mg PO DAILY solifenacin (Vesicare) 10 mg PO DAILY Tobacco use date assessed: 02/28/25 Dental Screening Dental Screen Date: 02/28/25 Did you have a dental visit in the last 12 months?: Yes Did you have a dental problem in the last 6 months where you did not have access to dental care?: No Was dental information given to patient?: Patient has dentist HPI f/u SOB HPI Details 44-year-old female with past medical his tory of hypertension, GERD, hyperlipidemia, chronic kidney disease stage 3, stress incontinence and generalized anxiety disorder last seen 11/2024 coming in for follow up. Presenting for a follow-up visit to manage multiple chronic conditions. The patient reports her amlodipine dose was increased to 10 mg during a recent emergency room visit for high blood pressure. She has been taking the 10 mg dose, sometimes by taking two 5 mg pills, and feels her blood pressure has not been elevated since. Home blood pressure readings have been around 130s systolic. The patient reports new onset of intermittent numbness and persistent weakness in her right arm and right leg, which started around November or December. The symptoms began when the weather got colder. The numbness is intermittent, occurring 3-4 days a week, but the weakness is constant and affects her ability to perform normal activities, such as lifting items. She describes the arm feeling stiff and sometimes has difficulty lifting it. A recent CT scan of her neck was normal. [facility] Medical History ASCUS with positive high risk HPV cervical Bilateral impacted cerumen Encounter to establish care Fibroids Obesity (BMI 35.0-39.9 without comorbidity) Hypertension Surgical History No pertinent past surgical history Family History Maternal Grandmother Cancer Mother High blood pressure Father No problems noted. Other Mental health problem Substance abuse Social History Housing: Condominium Alcohol intake: current Alcohol intake frequency: holidays/special occasions only Patient Tobacco Use Status: Never used Tobacco e-Cigarette/Vaping Use: Never Used Second Hand Smoke Exposure: Yes Substance Use Type: Marijuana service: No Current occupational status: disabled Sexual orientation: Straight/Heterosexual Cognitive needs: No Hearing needs: No Vision needs: No Female Reproductive History Menstrual Age of Menarche: 11 Questionnaire PHQ-9 Over the last 2 weeks, how often have you been bothered by any of the following problems? 1. Little interest or pleasure in doing things: more than half the days 2. Feeling down, depressed, or hopeless: not at all 3. Trouble falling or staying asleep, or sleeping too much: several days 4. Feeling tired or having little energy: several days 5. Poor appetite or overeating: not at all 6. Feeling bad about yourself - or that you are a failure or have let yourself or your family down: not at all 7. Trouble concentrating on things, such as reading the newspaper or watching television: not at all 8. Moving or speaking so slowly that other people could have noticed. Or the opposite - being so fidgety or restless that you have been moving around a lot more than usual: not at all 9. Thoughts that you would be better off or of hurting yourself in some way: not at all Total score: 4 Depression Screening Interpretation: Positive Depression Screening Follow-up: Existing condition and Declines treatment Depression Screening Done: Yes Source: Developed by Drs. Willy Young, Ruth Churchill, Donald Barraza and colleagues, with an educational renato from [employer]. Thrive Questionnaire Date Thrive assessed: 11/16/24 I am a: Patient What is your living situation today?: I have a steady place to live Within the past 12 months, did the food you bought not last and you didn't have the money to get more?: Often true Within the past 12 months, did you worry whether your food would run out before you got money to buy more?: Often true Do you have trouble paying for medicines?: No Do you have trouble getting transportation to medical appointments?: No Do you have trouble paying your heating and electricity bill?: Yes Do you have trouble taking care of your child, family member or friend?: No Do you have trouble with day-to-day activities such as bathing, preparing meals, shopping, managing finances, etc.?: Yes Are you currently unemployed and looking for a job?: No Are you interested in more education?: No Please select the resources that you would like help with: Utilities Currently or been in a relationship where the following occur: No concerns reported THRIVE Score: 3 AUDIT C Alcohol Use Questionnaire (AUDIT-C) 1. How often do you have a drink containing alcohol?: Never 3. How often do you have six or more drinks on one occasion?: Never Total Score: 0 ADAIR-7 AMB Questionnaire ADAIR-7 Date ADAIR - 7 assessed: 11/23/24 Feeling nervous, anxious, or on edge: 1 = Several days Not being able to stop or control worryin = Not at all Worrying too much about different things: 1 = Several days Trouble relaxin = Several days Being so restless that it is hard to sit still: 0 = Not at all Becoming easily annoyed or irritable: 1 = Several days Feeling afraid as if something awful might happen: 0 = Not at all Total ADAIR-7 score (0-4 normal; 5-9 mild; 10-14 moderate; 15-21 severe): 4 Source: Developed by Drs. Willy Young, Ruth Churchill, Donald Barraza and colleagues, with an educational renato from [employer]. Review of Systems Const Denies body aches, Denies chills, Denies fever(s), Denies headache(s) and Denies poor appetite Eyes Reports no additional complaints ENT Reports Normal hearing present, Denies dysphagia, Denies dizziness, Denies headache(s) and Denies odynophagia Card Denies chest pain, Denies syncope, Denies edema, Denies irregular heart rhythm, Denies lightheadedness and Denies dyspnea Resp Denies cough and Denies dyspnea GI Denies abdominal pain, Denies constipation, Denies dysphagia, Denies diarrhea, Denies nausea, Denies odynophagia and Denies vomiting Reports no additional complaints Musc Reports no additional complaints and Denies abnormal gait Skin/Breast Reports system reviewed and no additional complaints, except as documented Neuro Reports Normal hearing present, Denies abnormal gait, Denies dizziness, Denies syncope and Denies headache(s) Psych Reports no additional complaints Physical exam (Primary Care) Vital Signs: Last Vital Signs Temp 97.0 F 02/28/25 10:16 Pulse 89 02/28/25 10:16 BP 136/90 H 02/28/25 10:16 Pulse Ox 97 02/28/25 10:16 Oxygen Delivery Method Room Air 02/28/25 10:16 BMI result Body Mass Index 38.2 Tobacco/Smoking Status: Tobacco use Status Tobacco use date assessed 02/28/25 02/28/25 10:19 Patient Tobacco Use Status Never used Tobacco 02/28/25 10:19 e-Cigarette/Vaping Use Never Used 02/28/25 10:19 PHQ-9: PHQ-9 Score PHQ-9: Total score 4 02/28/25 13:34 Depression Screening Interpretation: Positive Depression Screening Follow-up: Existing condition and Declines treatment Thrive Assessment: Date of Thrive Assessment Date Thrive assessed 11/16/24 02/28/25 10:19 Currently or been in a relationship where the following occur: No concerns reported Const General: cooperative, healthy appearing, comfortable and no acute distress Orientation/consciousness: patient oriented x3 HENMT Head: Yes normocephalic Ears: hearing grossly normal bilaterally General nose exam: Normal external nose present Eyes General: appearance normal, both eyes and all related structures Conjunctivae: conjunctivae normal Pupils: pupils not ERRL Neck Neck: Yes full ROM and Yes no lymphadenopathy Resp Effort & Inspection: normal respiratory effort Auscultation: clear to auscultation bilaterally, no crackles, no rales, no rhonchi and no wheezes Cardio Rate: regular rate Rhythm: regular rhythm Skin General skin exam: no rashes or lesions noted Neuro General: patient oriented x3 Cranial nerves: Yes CN's II-XII intact bilaterally, No Equal, round and reactive pupils present, No Bilaterally intact EOM present, Yes Nystagmus not present, Yes Normal facial strength present, Yes Midline tongue present, Yes Normal hearing present and Yes Ability to bilaterally elevate shoulders present Cognition (Neuro): normal cognition Gait exam (Neuro): Normal gait present Motor exam (neuro): Pronator motor function not present and no tremor noted Extrem Other: weakness 3/5 strength with dorsiflexion and plantar flexion of the right foot and 5/5 strength on the left. 3/5 strength of the right upper extremity when compared to 5/5 strength of the left upper extremity. Intact sensation and pulses in bilateral upper and lower extremities General: Yes normal to inspection, Yes full ROM and No edema Psych Affect: normal affect Attitude: cooperative Insight: Good insight present (Psych) Judgement: Good judgement present (Psych) Coding Level of Care Code Est Pt Level 4 (33473) Diagnoses Hypertension I10 Obesity (BMI 30-39.9) E66.9 Hyperlipidemia E78.5 GERD (gastroesophageal reflux disease) K21.9 Shortness of breath R06.02 Hypersomnia G47.10 Incontinence R32 Right sided weakness R53.1 Assessment & Plan Assessment & Plan (1) Hypertension: Code(s): I10 - Essential (primary) hypertension Category: Medical Plan: The patient?s blood pressure remains elevated in the office, though she reports home readings have been better since increasing amlodipine to 10 mg daily. She will continue amlodipine 10 mg daily and will monitor her blood pressure at home for one week. The patient was given a blood pressure log and instructed to call if readings remain in the highlighted high range, at which point a second medication will be added. Counseling was provided on avoiding high salt intake and caffeine before appointments. (2) Obesity (BMI 30-39.9): Comment: Patient shared she has lost 40-45 lb through healthy eating and increased walking! Code(s): E66.9 - Obesity, unspecified Category: Medical Plan: Healthy diet and regular exercise is encouraged. noted 10 lb weight gain since last visit which she attributes to the holidays. Discussed dietary and lifestyle modification. (3) Hyperlipidemia: Code(s): E78.5 - Hyperlipidemia, unspecified Category: Medical Plan: Avoid foods that are high in cholesterol such as red meat, fried foods, eggs and baked goods. Triglyceride goal of less than 150 and LDL goal of less than 130. Reminded about blood work. (4) GERD (gastroesophageal reflux disease): Code(s): K21.9 - Gastro-esophageal reflux disease without esophagitis Category: Medical Plan: Avoid trigger foods such as citrus, tomato products, soda, caffeine, spicy foods and other foods that may be irritating to your stomach. Avoid laying flat 3-4 hours after eating and elevate the head of the bed 30 degrees to prevent acid from moving into the esophagus. Started on Omeprazole and feels good on this medication at this time. (5) Shortness of breath: Code(s): R06.02 - Shortness of breath Category: Medical Plan: The patient is prescribed an albuterol inhaler and a pulmonary function test is planned to confirm the diagnosis of asthma. Plan for Xr as well and consider stress test which was declined today. Reordered PFT and reminded about chest x- ray (6) Hypersomnia: Code(s): G47.10 - Hypersomnia, unspecified Category: Medical Plan: A sleep study is ordered to evaluate for sleep apnea. The patient is advised to monitor sleep patterns and report any significant changes. Sleep study scheduled for next week (7) Incontinence: Code(s): R32 - Unspecified urinary incontinence Category: Medical Plan: She will continue to follow with Urology at this time and has ultrasound upcoming (8) Right sided weakness: Code(s): R53.1 - Weakness Category: Medical Plan: The patient presents with new-onset, persistent right-sided weakness and intermittent numbness affecting the arm and leg, which is concerning. While this could be related to arthritis, the unilateral nature warrants further investigation to rule out a central cause, such as a missed cerebrovascular event or brain lesion. A non-contrast CT scan of the head will be ordered to investigate for any intracranial pathology. The patient has been counseled to go to the ER immediately for any acute changes, such as sudden or worsening weakness, facial droop, or difficulty speaking. For localized arm pain, the patient was advised to try topical treatments like lidocaine patches or Aspercreme. The patient deferred an X-ray of the shoulder at this time. No other neurological deficit noted on exam today. Plan This note was constructed using voice recognition software. While every effort has been made to ensure accuracy and substance abuse services director, still areas may have been included sometimes these areas may affect the content or meeting of the given symptoms. Total time spent caring for the patient today was 30 minutes. This includes time spent before the visit reviewing the chart, time spent during the visit, and time spent after the visit and documentation. Patient was informed and verbally consented to the use of an ambient scribe for clinic note documentation during this visit. Orders: Orders CT head/brain wo IV con Today R53.1 - Weakness PFT pulmonary function test Today R06.02 - Shortness of breath Medications: Discontinued amlodipine Discontinued Reason: Patient no longer taking 5 mg PO DAILY 90 tabs 2RF
[2025-02-28 10:16] VITALS: BP 136/90; PULSE 89; TEMP 36.1; O2SAT 97; BMI 38.2
== END 2025-02-28 11:11 | disposition home or self-care (01) ==
LOC: HO.HMCH 10:11
DX: I10 Essential (primary) hypertension (principal); E66.9 Obesity, unspecified; Z68.38 Body mass index [BMI] 38.0-38.9, adult; E78.5 Hyperlipidemia, unspecified; K21.9 Gastro-esophageal reflux disease without esophagitis; R06.02 Shortness of breath; G47.10 Hypersomnia, unspecified; R32 Unspecified urinary incontinence; R53.1 Weakness

== ENCOUNTER → 2025-02-28 10:10 | Outpatient (BNVA) | payer MEDICARE, SELFPAY | DX: I12.9 Hypertensive chronic kidney disease with stage 1 through stage 4 chronic kidney disease, or unspecified chronic kidney disease (principal); K21.9 Gastro-esophageal reflux disease without esophagitis; N18.30 Chronic kidney disease, stage 3 unspecified; F41.1 Generalized anxiety disorder; R53.1 Weakness; E66.9 Obesity, unspecified; E78.5 Hyperlipidemia, unspecified; R06.02 Shortness of breath; G47.10 Hypersomnia, unspecified; R35.1 Nocturia; N39.3 Stress incontinence (female) (male); Z68.38 Body mass index [BMI] 38.0-38.9, adult; Z79.899 Other long term (current) drug therapy | CPT/HCPCS: 96127; 99212 ==

== ENCOUNTER 2025-03-22 13:54 | Outpatient (REF) | payer OTHER, SELFPAY ==
--- NOTE | ~2025-03-22 | US_ITS ---
EXAMINATION: US PELVIS TRANSABDOMINAL AND TRANSVAGINAL HISTORY: N93.9 - Abnormal uterine and vaginal bleeding, unspecified COMPARISON: Comparison is made with the prior examination dated 05/30/2020. TECHNIQUE: Transabdominal and endovaginal real-time 2D pollock-scale ultrasound was performed. FINDINGS: Uterus: The uterus is normal in size, measuring 9.9 x 4.7 x 5.4 cm. Myometrium has a normal echotexture. There is a 3.0 x 2.1 x 2.9 cm anterior fibroid (previously 2.1 x 2.1 x 2.2 cm). Endometrium: The endometrial stripe measures 14 mm in thickness. There is a 6 mm echogenic focus within the endometrium, which likely represents a polyp. Right ovary: The right ovary measures 2.7 x 1.8 x 1.7 cm. The right ovary is normal in size and echotexture. Left ovary: The left ovary measures 2.9 x 1.9 x 1.4 cm. Again seen is a rounded calcification in the left ovary measuring 8 mm. Pelvic fluid: none. US/US pelvic and transvaginal IMPRESSION: 1. Interval growth of the previously seen anterior fibroid which now measures 3.0 cm in size. 2. 6 mm echogenic focus within the endometrium which likely represents a polyp. 3. Stable 8 mm calcification in the left ovary. Electronically signed by: Willy Luciano MD 03/22/2025 03:12 PM [facility] [place]
== END 2025-03-22 13:55 | disposition home or self-care (01) ==
LOC: HO.US 13:54
PROVIDERS: Visit Provider Obstetrics & Gynecology
DX: N93.9 Abnormal uterine and vaginal bleeding, unspecified (principal)
CPT/HCPCS: 76830; 76856

== ENCOUNTER → 2025-03-22 13:59 | Outpatient (BNV) | payer OTHER, SELFPAY | PROVIDERS: Visit Provider Radiology Diagnostic Radiology | DX: N93.9 Abnormal uterine and vaginal bleeding, unspecified (principal); D25.9 Leiomyoma of uterus, unspecified | CPT/HCPCS: 76830; 76856 ==